=== PATIENT | female | born 1955 | race Caucasian/White ===

== ENCOUNTER 2017-04-07 07:47 | Outpatient (CLI) | payer MEDICARE | END 2017-04-07 07:48 | disposition critical access hospital (66) | LOC: EMS 07:47 | PROVIDERS: ATTEND Surgery | DX: R06.02 Shortness of breath (principal); R05 Cough | CPT/HCPCS: A0425; A0427 ==

== ENCOUNTER 2017-04-07 08:06 | Inpatient (IN) | payer MEDICARE ==
--- NOTE | 2017-04-07 08:28 | ED Physician Documentation ---
PD HPI DYSPNEA - Stated complaint Stated Complaint: SOA - Chief complaint Chief Complaint: Resp - History obtained from History obtained from: Patient, EMS - History of Present Illness Timing - onset: How many days ago (6) Timing - onset during: Rest Timing - duration: Days (6) Timing - details: Gradual onset, Still present Inciting event(s): URI Improved by: Inhaler/neb Worsened by: Exertion, Coughing Associated symptoms: Fever, Cough, Wheezing Similar symptoms before: Diagnosis (bronchitis) Recently seen: Clinic - Additional information Additional information: 61-year-old diabetic female with coronary artery disease has developed a cough and fever with shortness of breath. She was diagnosed with bronchitis 4 days ago and placed on azithromycin and prednisone. Despite starting these medicines she has had progression of her shortness of breath and now has called the ambulance unable to get of breath after using her albuterol inhaler.In route to the hospital she was administered DuoNeb and an albuterol treatment she is somewhat improved with her breathing, but continues to have wheezing. Review of Systems Constitutional: reports: Fever, Chills, Myalgias, Fatigue Eyes: denies: Decreased vision Ears: denies: Ear pain Nose: reports: Rhinorrhea / runny nose, Congestion Throat: denies: Sore throat Cardiac: denies: Chest pain / pressure, Palpitations Respiratory: reports: Dyspnea, Cough, Wheezing GI: denies: Abdominal Pain, Nausea, Vomiting : denies: Dysuria, Frequency Skin: denies: Rash Musculoskeletal: denies: Neck pain, Back pain, Extremity pain PD PAST MEDICAL HISTORY - Past Medical History Cardiovascular: Hypertension, High cholesterol, Coronary artery disease, Peripheral Vascular Disease, [place] Respiratory: Shortness of breath Neuro: CVA, Peripheral neuropathy Endocrine/Autoimmune: Type 2 diabetes Musculoskeletal: Osteopenia - Past Surgical History Past Surgical History: Yes Cardiovascular: CABG, Coronary stent, Vascular surgery, Angioplasty - Present Medications Home Medications: Ambulatory Orders Medication Instructions Recorded Confirmed Aspirin [Aspir 81] 81 mg PO DAILY 06/12/14 04/07/17 Carvedilol 25 mg PO BID 06/12/14 04/07/17 Prasugrel HCl [Effient] 10 mg PO DAILY 06/12/14 04/07/17 Amlodipine Besylate 10 mg PO QPM 11/10/15 04/07/17 Atorvastatin Calcium 40 mg PO DAILY 11/10/15 04/07/17 Cilostazol 100 mg PO QPM 11/10/15 04/07/17 Diazepam 10 mg PO DAILY PRN 11/10/15 04/07/17 Mirtazapine 15 mg PO QPM 11/10/15 04/07/17 Insulin Lispro [Humalog] 40 units SQ BID 04/07/17 04/07/17 Insulin Regular, Human [Humulin R] 20 units SQ TID 04/07/17 04/07/17 Isosorbide Dinitrate 30 mg PO DAILY 04/07/17 04/07/17 Prednisone 40 mg PO DAILY 04/07/17 04/07/17 - Allergies Allergies/Adverse Reactions: Allergies Allergy/AdvReac Type Severity Reaction Status Date / Time clopidogrel bisulfate * Allergy Severe Hives Verified 04/07/17 08:12 [From Plavix] Penicillins Allergy Intermediate Hives Verified 04/07/17 08:12 sertraline HCl * Allergy Intermediate throat Verified 04/07/17 08:12 [From Zoloft] swelling Heparin Analogues AdvReac Intermediate platelets Verified 04/07/17 08:12 metformin AdvReac Intermediate diarrhea Verified 04/07/17 08:12 gabapentin AdvReac explosive Verified 04/07/17 08:12 diarrhea tapes Allergy Intermediate blisters Uncoded 04/07/17 08:12 - Social History Does the pt smoke?: No Smoking Status: Former smoker Does the pt drink ETOH?: No Does the pt have substance abuse?: No - Immunizations Immunizations are current?: Yes - POLST Patient has POLST: No PD ED PE NORMAL - Vitals Vital signs reviewed: Yes (hypertensive with wide pulse pressure) - General General: Well developed/nourished - HEENT HEENT: Atraumatic, PERRL, EOMI, Other (The lft TM is inflamed and the right is clear. mucous membranes are dry. ) - Neck Neck: Supple, no meningeal sign - Cardiac Cardiac: RRR, No murmur - Respiratory Respiratory: Other (tachypnea with audible wheeze and wheezes and rhonchi throughout the chest. ) - Abdomen Abdomen: Soft, Non tender - Back Back: No CVA TTP, No spinal TTP - Derm Derm: Normal color, Warm and dry, No rash - Extremities Extremities: No deformity, No edema - Neuro Neuro: No motor deficit, No sensory deficit - Psych Psych: Normal mood, Normal affect Results - Vitals Vitals: Vital Signs - 24 hr 04/07/17 04/07/17 04/07/17 08:06 08:33 09:25 Temperature 36.6 C Heart Rate 81 73 77 Respiratory 24 17 20 Rate Blood Pressure 160/50 H 142/58 H 164/59 H O2 Saturation 94 94 93 04/07/17 04/07/17 04/07/17 10:14 10:23 11:46 Temperature Heart Rate 69 68 69 Respiratory 16 17 15 Rate Blood Pressure 155/62 H 160/58 H O2 Saturation 96 96 04/07/17 12:17 Temperature Heart Rate 13 L Respiratory 18 Rate Blood Pressure 138/58 H O2 Saturation 97 Oxygen O2 Source Room air - EKG (time done) 0916 Rate: Rate (enter#) (76) [place]: RAD QRS: Poor R wave progression Ischemia: Normal ST segments, Non specific changes Compare to prior EKG: Unchanged from prior EKG (1.29.16) Computer interpretation: Agree with computer - Labs Labs: Laboratory Tests 04/07/17 04/07/17 04/07/17 08:32 08:32 08:32 WBC 8.7 RBC 4.05 L Hgb 12.3 Hct 35.5 L MCV 87.6 MCH 30.3 MCHC 34.5 RDW 15.8 H Plt Count 171 MPV 6.5 L Neut # 7.0 H Lymph # 1.2 L [place] # 0.4 Eos # 0.0 Baso # 0.1 Absolute Nucleated RBC 0.00 Nucleated RBCs 0.0 D-Dimer Sodium 140 Potassium 3.9 Chloride 105 Carbon Dioxide 28 Anion Gap 7.0 BUN 20 Creatinine 0.9 Estimated GFR (MDRD) 63 L Glucose 186 H Calcium 9.0 Total Bilirubin 0.5 AST 27 ALT 29 Alkaline Phosphatase 72 Troponin I 0.17 Total Protein 7.3 Albumin 3.5 Globulin 3.8 Albumin/Globulin Ratio 0.9 L Lipase 24 04/07/17 04/07/17 08:32 10:10 WBC RBC Hgb Hct MCV MCH MCHC RDW Plt Count MPV Neut # Lymph # [place] # Eos # Baso # Absolute Nucleated RBC Nucleated RBCs D-Dimer < 200.0 L Sodium Potassium Chloride Carbon Dioxide Anion Gap BUN Creatinine Estimated GFR (MDRD) Glucose Calcium Total Bilirubin AST ALT Alkaline Phosphatase Troponin I 0.17 Total Protein Albumin Globulin Albumin/Globulin Ratio Lipase Procedures - IVC sono (time) 0820 Bedside IVC sono: IVC measures (cm) (1.87), IVC collapsed c insp (cm) (1.24), Euvolemia PD MEDICAL DECISION MAKING - ED course Complexity details: reviewed old records, reviewed results, re-evaluated patient , considered differential, d/w patient ED course: 61-year-old female with history of diabetes and coronary artery disease has developed bronchitis that is not responding to outpatient management with prednisone and Zithromax. She continues to cough and has extreme shortness of breath this morning to wear she required 2 treatments in route to the hospital and a third treatment here. She still feels weak hurry her volume status is euvolemic and her d-dimer is negative troponins were in the indeterminate range repeated and and stable.I talked to Dr. Ariana Batista our hospitalist here today and he has graciously agreed to put the patient into the hospital for further treatment. Departure - Departure Disposition: 64 [facility] DC/Xfer Clinical Impression: Moderate COPD (chronic obstructive pulmonary disease) Pneumonia Qualifiers: Pneumonia type: due to unspecified organism Laterality: right Lung location: lower lobe of lung Qualified Code(s): J18.1 - Lobar pneumonia, unspecified organism Condition: Stable
[2017-04-07 08:40] LABS: BASOPHILS # (AUTO) 0.1 10^3/uL (0.0-0.1); BASOPHILS % (AUTO) 0.6 %; EOSINOPHILS % (AUTO) 0.2 %; HCT - HEMATOCRIT 35.5 % (37.0-47.0); HGB - HEMOGLOBIN 12.3 g/dL (12.0-16.0); LYMPHOCYTES # (AUTO) 1.2 10^3/uL (1.5-3.5); LYMPHOCYTES % (AUTO) 13.4 %; MEAN CORPUSCULAR HEMOGLOBIN 30.3 pg (27.0-31.0); MEAN CORPUSCULAR HGB CONC 34.5 g/dL (32.0-36.0); MEAN CORPUSCULAR VOLUME 87.6 fL (81.0-99.0); MEAN PLATELET VOLUME 6.5 fL (7.9-10.8); MONOCYTES # (AUTO) 0.4 10^3/uL (0.0-1.0); MONOCYTES % (AUTO) 5.2 %; NEUTROPHILS % (AUTO) 80.6 %; RED BLOOD COUNT 4.05 10^6/uL (4.20-5.40); RED CELL DISTRIBUTION WIDTH 15.8 % (12.0-15.0); UNCORRECTED WHITE BLOOD COUNT 8.7 x10^3/uL; WHITE BLOOD COUNT 8.7 x10^3/uL (4.8-10.8)
[2017-04-07 08:53] LABS: ALBUMIN/GLOBULIN RATIO 0.9 (1.0-2.2); BILIRUBIN,TOTAL 0.5 mg/dL (0.2-1.0); CREATININE 0.9 mg/dL (0.4-1.0); POTASSIUM 3.9 mmol/L (3.5-5.0); TOTAL PROTEIN 7.3 g/dL (6.7-8.2)
--- NOTE | 2017-04-07 09:35 | XRAY Preliminary Report ---
Exam: XR Chest 2 View PA/LAT IMPRESSION: 1. Increased interstitial markings with Bronchial cuffing and nonspecific but can be seen in the setting of reactive airways disease, bronchi tis and viral infection. 2. Subtle nodular densities seen in the lateral aspect of the right lower lobe are nonspecific but ca n be seen in the setting of early infectious process. [facility] SITE ID: [id number]
--- NOTE | 2017-04-07 09:38 | XRAY Report ---
EXAM: CHEST RADIOGRAPHY EXAM DATE: 04/07/2017 08:56 AM. CLINICAL HISTORY: Rhonchi wheezing and fever. COMPARISON: Chest radiograph dated 04/04/2017. TECHNIQUE: 2 views. FINDINGS: Lungs/Pleura: D increased interstitial markings or peribronchial cuffing are redemonstrated and simil ar to the prior examination. Subtle nodular densities are noted in the right lung base laterally whic h are new from the prior examination. Mediastinum: Heart and mediastinal contours are unremarkable. Other: None. IMPRESSION: 1. Increased interstitial markings with Bronchial cuffing and nonspecific but can be seen in the setting of reactive airways disease, bronchi tis and viral infection. 2. Subtle nodular densities seen in the lateral aspect of the right lower lobe are nonspecific but ca n be seen in the setting of early infectious process. [facility] Referring Provider Line: [phone] SITE ID: [id number]
[2017-04-07] MEDS ORDERED: IPRATROPIUM/ALBUTEROL 3 ML NEB INH STA (10:04)
[2017-04-07] MEDS ORDERED: cefTRIAXone 1 GM in SODIUM CHLORIDE 0.9% MINIBAG 100 ML IV STA (10:50)
[2017-04-07] MEDS ORDERED: cefTRIAXone 1 GM VIAL ONE (10:55)
[2017-04-07] MEDS ORDERED: ACETAMINOPHEN 325 MG TABLET PO PRN (12:43)
[2017-04-07] MEDS ORDERED: ONDANSETRON ODT 4 MG TABLET TL PRN (12:43)
[2017-04-07] MEDS ORDERED: SODIUM CHLORIDE FLUSH 0.9% 10 ML SYRINGE IVP PRN (12:43)
[2017-04-07 13:48] LABS: MAGNESIUM 1.9 mg/dL (1.7-2.8); PHOSPHORUS 2.7 mg/dL (2.5-4.6)
[2017-04-07 13:49] LABS: HEMOGLOBIN A1C 0.6 g/dL
[2017-04-07] MEDS ORDERED: diphenhydrAMINE INJ 50 MG/ML VIAL IVP PRN (13:53)
[2017-04-07] MEDS: CARVEDILOL 12.5 MG TABLET PO SCH ×2 (14:36→21:05)
[2017-04-07] MEDS: ASPIRIN EC 81 MG TABLET PO SCH (14:37)
[2017-04-07] MEDS: methylPREDNISolone SUCCINATE 40 MG/ML VIAL IVP SCH (14:59)
[2017-04-07] MEDS: SODIUM CHLORIDE FLUSH 0.9% 10 ML SYRINGE IVP SCH ×2 (14:59→22:27)
[2017-04-07] MEDS: FAMOTIDINE 20 MG/50 ML 50 ML IV SCH ×2 (14:59→21:06)
[2017-04-07] MEDS: IPRATROPIUM/ALBUTEROL 3 ML NEB INH SCH ×2 (15:25→18:59)
[2017-04-07] MEDS: guaiFENesin/DEXTROMETHORPHAN 10 ML UDC PO PRN ×2 (16:30→22:06)
[2017-04-07] MEDS: INSULIN ASPART 300 UNIT/3 ML PEN SUBQ SCH ×3 (17:03→21:17)
--- NOTE | 2017-04-07 18:31 | HISTORY & PHYSICAL EXAMINATION ---
DATE OF ADMISSION: 04/07/2017 CHIEF COMPLAINT: Wheezing, shortness of breath. MAIN PROVIDER: Abigail Olivas N.P. HISTORY OF PRESENTING ILLNESS: The patient is a pleasant 61-year-old obese diabetic female who prese nted to the ER today with a complaint of six days of wheezing and shortness of breath. The patient s tates that she has been on azithromycin and prednisone with no relief. She has a significant medical history for coronary artery disease, obesity, hypertension, high cholesterol, peripheral neuropathy, type 2 diabetes, osteopenia, PVD, and a history of myocardial infarction. Over the course of six da ys, she has been using the azithromycin and prednisone, but continued to have a runny nose, congestio n, sore throat, productive cough, and shortness of breath with wheezing. Despite taking all the medi cations, she has continued to progress, and the shortness of breath has worsened. It is now severe. She called the ambulance today because she was unable to get her breath after using her albuterol in [facility]. While in the ER, she did receive Duoneb treatment, which she stated did help improve her merissa thing. She denies nausea, vomiting, diarrhea, constipation, dysuria, hematuria, and numbness or ting ling to the extremities. She states she has been compliant in all her home medications for her COPD history. She has not been around anybody who has been sick in the home. She states that for 40 year s she has been a smoker and she rolls her own cigarettes and uses organic tobacco. Approximately two weeks ago, she decided to buy a carton of cigarettes instead, and this is when her symptoms started to develop. She has lessened, and then other times she has smoked cigarettes throughout the day. Sh joe thinks that her lungs are just responding to the recent use of carton cigarettes versus organic tob acco products. The patient continued to have shortness of breath while in the ER. She was admitted to be closely mo nitored with respiratory therapy treatments and IV steroids. ALLERGIES 1. PLAVIX. 2. PENICILLIN. 3. ZOLOFT. 4. HEPARIN. 5. METFORMIN. 6. GABAPENTIN. 7. TAPE. HOME MEDICATIONS 1. Aspirin. 2. Carvedilol. 3. Effient. 4. Amlodipine besylate. 5. Atorvastatin calcium. 6. Cilostazol. 7. Diazepam. 8. Mirtazepine. 9. Insulin (Humalog). 10. Insulin (regular). 11. Isosorbide dinitrate. 12. Prednisone. PAST MEDICAL HISTORY: Includes osteopenia, type 2 diabetes (insulin controlled), past CVA, periphera l neuropathy, hypertensive heart disease, hyperlipidemia, coronary artery disease, past myocardial in farction. PAST SURGICAL HISTORY: CABG, coronary stent placement, vascular surgery, angioplasty, right ankle fr acture repair. PAST FAMILY HISTORY: The patient states that both of her parents had hypertension. Mother had signi ficant cardiac disease and heart failure. Father from Parkinson disease. She had an uncle who from diabetes and one from alcoholism. Then, a son also had a myocardial infarction at the age of 40. SOCIAL HISTORY: The patient has smoked heavily for 40 years with organic tobacco. She rolls her own cigarettes. 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 REVIEW OF SYSTEMS: Ten systems have been reviewed and are negative, with the exception as discussed in the HPI prior. She is negative for fever and chills. No general malaise. No weight changes or c hanges in appetite. No visual disturbances. No abdominal pain. No dysuria, urinary frequency, or u rgency. She is positive for shortness of breath, chest discomfort with cough, and weakness. PHYSICAL EXAMINATION CONSTITUTIONAL: The patient is alert and in no acute distress. EYES: Pupils are equal, round, and reactive to light and accommodation. No scleral icterus or conju nctivitis. ENT: Nares are patent. Dentition in fair condition. Oral mucosa is moist. Mild nasal drainage. NECK: Supple. No thyromegaly. No JVD. No lymphadenopathy. RESPIRATORY: Breath sounds are with generalized wheezing to auscultation and percussion. No retract ions, nasal flaring, or increased work of breathing. CARDIOVASCULAR: S1 and S2, with a 2/6 systolic murmur heard loudest at the left sternal border. No rubs or gallops. Normal PMI. GASTROINTESTINAL: Abdomen is obese, soft, and nondistended. Nontender to palpation. Normoactive urvashi wel sounds. MUSCULOSKELETAL: No cyanosis. Pulses are palpable. She is able to ambulate without assistance. Mi ld pedal edema of the bilateral lower extremities. NEUROLOGIC: She is alert. Cranial nerves II through XII are grossly intact. No focal deficits. No facial droop. Sensory is intact. SKIN: Warm, dry, and intact. No cellulitis, lesions, or rash. HEMATOLOGIC: No active bleeding. The patient is hemodynamically stable. LYMPHATIC: No cervical, axillary, or supraclavicular lymphadenopathy is noted. GENITOURINARY: No CVA tenderness. No masses palpated. No bladder distention. VITAL SIGNS: Temperature is 36.6. Heart rate is 74. Blood pressure is 143/68. Respirations are 20 . Oxygen saturation is 94% on room air. LABORATORY AND DIAGNOSTIC DATA: I personally reviewed the laboratory and diagnostic data in the [facility] records. The results were as follows, with glucose 186. Hemoglobin A1c was 6.3. Calcium 9. Ma gnesium 1.9. Phosphorus 2.7. TSH 1.11. Sodium 140, potassium 3.9, chloride 105, anion gap 7, BUN 2 0, creatinine 0.9. WBCs 8.7, and hemoglobin 12.3. Diagnostic information includes a chest x-ray impression of increased interstitial markings with bron chial cuffing, nonspecific, with reactive airway disease, possible bronchitis or viral infection. Th ere were several nodular densities seen in the lateral aspect of the right lower lobe, which were non specific. IMPRESSION AND PLAN 1. Acute shortness of breath with chronic obstructive pulmonary disease secondary to chronic tobacco usage, uncomplicated. 2. Insulin-dependent type 2 diabetes with peripheral neuropathy. 3. Atherosclerotic heart disease and [place] coronary artery disease, with coronary artery bypass. 4. Morbid obesity with a body mass index greater than 42. 5. Hyperlipidemia with atherosclerotic heart disease. 6. Chronic osteopenia. 7. Nicotine dependence, cigarettes, uncomplicated. PLAN 1. The patient was admitted as an inpatient. 2. Respiratory therapy support with supplemental oxygen and Duoneb treatments every 4 hours or as nee ded for wheezing and shortness of breath. Continue with Solu-Medrol IV 40 mg every 8 hours. We will hold home dosage of prednisone. Continue with supplemental oxygen at 2 liters as needed. 3. Continue on aspirin, carvedilol, and amlodipine for hypertensive heart disease. 4. Continue on 40 units of insulin (Humalog) subcutaneous b.i.d. and sliding scale insulin for type 2 diabetes management. Accu-Cheks a.c. and bedtime, and diabetic three-carbohydrate diet. 5. We will check vitamin D level for osteopenia, and vitamin D supplementation daily. 6. We will get a lipid profile since the patient has hyperlipidemia and continue on aspirin. Continu e with atorvastatin. 7. Since the patient does have mild depression, continue on diazepam p.r.n. at home dosage. 8. Robitussin DM for cough and Benadryl for congestion and histamine response. 9. DVT prophylaxis with foot pumps and sequential compression devices, and encouragement with ambulat ion. THE PATIENT DOES HAVE SEVERE REACTION TO HEPARIN OR ANTICOAGULATION THERAPY. 10. Physical and Occupational Therapy to assist with the patient for ambulation. STATUS: The patient requests to be a FULL CODE STATUS. TIME SPENT: The time spent with the patient was 45 minutes for education, planning, and assessment. RISK ASSESSMENT/DISPOSITION: The patient is high risk for worsening comorbid conditions. She will r equire IV medication with high risk for toxicity, additional diagnostics, respiratory therapy, and PT consultation. ANTICIPATED LENGTH OF STAY: Two midnights. 17:9:00 JOB #: [id number] EXT JOB #:[id number]
[2017-04-07] MEDS ORDERED: amLODIPine 5 MG TABLET PO SCH (21:00)
[2017-04-07] MEDS ORDERED: CILOSTAZOL 100 MG TABLET PO SCH (21:00)
[2017-04-07] MEDS: INSULIN NPH HUMAN 100 UNIT/1 ML 10 ML MDV SUBQ SCH (21:04)
[2017-04-07] MEDS: OMEGA-3 ACID ETHYL ESTERS 1 GM CAPSULE PO SCH (21:05)
[2017-04-07] MEDS ORDERED: MIRTAZAPINE 15 MG TABLET PO SCH (22:03)
[2017-04-08] MEDS: guaiFENesin/DEXTROMETHORPHAN 10 ML UDC PO PRN ×2 (03:28→10:21)
[2017-04-08] MEDS: IPRATROPIUM/ALBUTEROL 3 ML NEB INH SCH ×3 (05:49→15:24)
[2017-04-08] MEDS: SODIUM CHLORIDE FLUSH 0.9% 10 ML SYRINGE IVP SCH ×2 (06:01→15:02)
[2017-04-08 06:30] LABS: BASOPHILS % (AUTO) 0.3 %; HCT - HEMATOCRIT 38.5 % (37.0-47.0); LYMPHOCYTES # (AUTO) 1.8 10^3/uL (1.5-3.5); LYMPHOCYTES % (AUTO) 18.9 %; MEAN CORPUSCULAR HEMOGLOBIN 29.7 pg (27.0-31.0); MEAN CORPUSCULAR HGB CONC 33.8 g/dL (32.0-36.0); MEAN PLATELET VOLUME 6.6 fL (7.9-10.8); MONOCYTES # (AUTO) 0.9 10^3/uL (0.0-1.0); MONOCYTES % (AUTO) 9.2 %; NEUTROPHILS # (AUTO) 6.7 10^3/uL (1.5-6.6); NEUTROPHILS % (AUTO) 71.6 %; NUCLEATED RED BLOOD CELLS AUTO 0.1 /100WBC; RED BLOOD COUNT 4.37 10^6/uL (4.20-5.40); RED CELL DISTRIBUTION WIDTH 15.7 % (12.0-15.0); UNCORRECTED WHITE BLOOD COUNT 9.4 x10^3/uL; WHITE BLOOD COUNT 9.4 x10^3/uL (4.8-10.8)
[2017-04-08 06:46] LABS: ALBUMIN/GLOBULIN RATIO 1.1 (1.0-2.2); BILIRUBIN,TOTAL 0.3 mg/dL (0.2-1.0); BUN - BLOOD UREA NITROGEN 24 mg/dL (6-20); CALCIUM 9.1 mg/dL (8.5-10.3); CARBON DIOXIDE - CO2 29 mmol/L (21-32); CHLORIDE 104 mmol/L (101-111); CHOL/HDL RATIO 3.3 (<4.4); CHOLESTEROL 182 mg/dL; GFR - MDRD 56 (>89); GLUCOSE 169 mg/dL (70-100); HDL CHOLESTEROL 55 mg/dL; LDL/HDL RATIO 1.5 (<4.4); POTASSIUM 3.9 mmol/L (3.5-5.0); SODIUM 140 mmol/L (135-145); TOTAL PROTEIN 7.2 g/dL (6.7-8.2); TRIGLYCERIDES 226 mg/dL; VLDL CHOLESTEROL 45 mg/dL
[2017-04-08] MEDS: INSULIN ASPART 300 UNIT/3 ML PEN SUBQ SCH ×4 (08:27→17:13)
[2017-04-08] MEDS: INSULIN NPH HUMAN 100 UNIT/1 ML 10 ML MDV SUBQ SCH (08:27)
[2017-04-08] MEDS ORDERED: POLYETHYLENE GLYCOL 3350 17 GM PACKET PO SCH (09:00)
[2017-04-08] MEDS ORDERED: ISOSORBIDE MONONITRATE ER 30 MG TABLET PO SCH (09:00)
[2017-04-08] MEDS ORDERED: MAGNESIUM SULFATE 2 GRAM 50 ML IV ONE (09:15)
[2017-04-08] MEDS: methylPREDNISolone SUCCINATE 40 MG/ML VIAL IVP SCH (09:56)
[2017-04-08] MEDS: FAMOTIDINE 20 MG/50 ML 50 ML IV SCH (10:00)
[2017-04-08] MEDS: CARVEDILOL 12.5 MG TABLET PO SCH (10:22)
[2017-04-08] MEDS: ASPIRIN EC 81 MG TABLET PO SCH (10:22)
[2017-04-08] MEDS: OMEGA-3 ACID ETHYL ESTERS 1 GM CAPSULE PO SCH (10:23)
[2017-04-08] MEDS ORDERED: guaiFENesin 600 MG TABLET PO SCH (12:00)
--- NOTE | 2017-04-08 12:07 | Discharge Plan ---
Discharge Plan Disposition: Home, Self Care Condition: Good Prescriptions: guaiFENesin/DEXTROMETHORPHAN [Robitussin Dm] 10 ml PO Q6HR PRN #1 bottle PRN Reason: Cough Albuterol 2.5 mg INH Q4H PRN #30 neb PRN Reason: Wheezing [place]-3 Acid Ethyl Esters [Lovaza] 1 gm PO BID #60 capsule guaiFENesin [Mucinex] 600 mg PO DAILY #10 tablet Benzonatate [Tessalon] 100 mg PO TID PRN #30 capsule PRN Reason: Cough Diet: Diabetic Activity Restrictions: Activity as Tolerated Shower Restrictions: No Driving Restrictions: No Assistance Devices: Walker, Cane Weight Bearing: Full Weight Instruction Topics: Bronchitis Chronic Additional Instructions or Follow Up instructions: Please continue on all your home medications as prescribed. You need to use your inhaler as needed. You need to stop smoking. Please eat a diabetic heart healthy diet and avoid soda and caffeine. Please monitor your blood glucose with each meal. You need to drink plenty of water throughout the day. avoid sodas and limit caffeine products You should be getting at least 8 hours of sleep a night and if you snore you may need a sleep study to determine if you have sleep apnea You need to go to the nearest ER or call 911 if you have worsening shortness of breath or chest pain. Please see your primary care provider within 1 week of discharge. No Smoking: If you smoke, Please STOP! Call for help. Follow-up with: Cheyenne Guan MD [Primary Care Provider] -
[2017-04-08] MEDS ORDERED: IPRATROPIUM/ALBUTEROL 3 ML NEB INH ONE (13:00)
[2017-04-08] MEDS ORDERED: BENZONATATE 100 MG CAPSULE PO PRN (14:46)
--- NOTE | 2017-04-08 16:51 | DISCHARGE SUMMARY ---
"Discharge Summary Admit Date: 04/07/17 Discharge Date: 04/08/17 (Discharge for COPD exacerbation) Discharging Provider: Abigail Olivas APRN Primary Care Provider: Selina Danielson MD Condition at Discharge: Good Discharge Disposition: 01 Home, Self Care - DIAGNOSES Admission Diagnoses: 1. ACute dyspnea with COPD with exacerbation 2. Nicotine dependence, cigarettes, uncomplicated 3. Insulin dependent diabetes mellitus with peripheral neuropathy 4. Morbid obesity with BMI>40 excessive caloric intake 5. Mixed hyperlipidemia Discharge Diagnoses with Status of Each Condition: 1. Acute dyspnea with COPD with exacerbation 2. Upper respiratory viral infection 2. Nicotine dependence, cigarettes, uncomplicated 3. Insulin dependent diabetes mellitus with peripheral neuropathy 4. Morbid obesity with BMI>40 excessive caloric intake 5. Mixed hyperlipidemia - HPI History of Present Illness: 61-year-old diabetic female with coronary artery disease who developed a cough and fever with shortness of breath. She was diagnosed with bronchitis 4 days ago and placed on azithromycin and prednisone. Despite starting these medicines she has had progression of her shortness of breath and now has called the ambulance unable to get of breath after using her albuterol inhaler.In route to the hospital she was administered DuoNeb and an albuterol treatment she is somewhat improved with her breathing, but continues to have wheezing. - CONSULTS | PROCEDURES Consultations: respiratory therapy, PT and OT Procedures: chest xray- impression shows increased bronchial cuffings with restrictive airway disea EKG- sinus rhythm with no ischemia - HOSPITAL COURSE Hospital Course: Patient is a 61 year old obese female who presented to the ER with complaint of shortness of breath and COPD exacerbation. After being on antibiotics and steroids for 4 days prior to admission, patient came to the ER. She was not getting better and subsequently was admitted for possible bronchitis versus new infectious airway process. Patient received Azithromycin and Rocephin in the ER. She had been on a Zpack with no relief. She was given mucinex, robitussin and tessalon perles for cough and congestion. She was given breathing treatments per RT and continued on IV steroids and tapered back to oral prednisone at discharge. She continued to receive educational materials regarding smoking cessation. She remained on her COPD medications from home. She was counseled on diabetic management by nursing and given a diabetic low calorie diet and sliding scale insulin. Accuchecks were performed ACHS. On da of discharge, patient had a walking desat study and she remained greater than 92 % on room air with exertion. She is stable to be discharged home with family. She was given prescriptions for cough and inhaler. She understands she is to return to the ER if symptoms reoccur or worsen. She is to take medications as prescribed and understood these instructions verbally to staff. - ALLERGIES Allergies/Adverse Reactions: Allergies Allergy/AdvReac Type Severity Reaction Status Date / Time clopidogrel bisulfate * Allergy Severe Hives Verified 04/07/17 08:12 [From Plavix] Penicillins Allergy Intermediate Hives Verified 04/07/17 08:12 sertraline HCl * Allergy Intermediate throat Verified 04/07/17 08:12 [From Zoloft] swelling Heparin Analogues AdvReac Intermediate platelets Verified 04/07/17 08:12 metformin AdvReac Intermediate diarrhea Verified 04/07/17 08:12 gabapentin AdvReac explosive Verified 04/07/17 08:12 diarrhea tapes Allergy Intermediate blisters Uncoded 04/07/17 08:12 - MEDICATIONS Home Medications: Ambulatory Orders Medication Instructions Recorded Confirmed Aspirin [Aspir 81] 81 mg PO DAILY 06/12/14 04/07/17 Carvedilol 25 mg PO BID 06/12/14 04/07/17 Prasugrel HCl [Effient] 10 mg PO DAILY 06/12/14 04/07/17 Amlodipine Besylate 10 mg PO QPM 11/10/15 04/07/17 Atorvastatin Calcium 40 mg PO DAILY 11/10/15 04/07/17 Cilostazol 100 mg PO QPM 11/10/15 04/07/17 Mirtazapine 15 mg PO QPM 11/10/15 04/07/17 Insulin Lispro [Humalog] 20 units SQ 0800,1200 04/07/17 04/07/17 Insulin Lispro [Humalog] 30 unit SQ 1700 04/07/17 04/07/17 Insulin NPH Human [NovoLIN N] 45 unit SUBQ BID 04/07/17 04/07/17 Isosorbide Mononitrate ER [Imdur] 30 mg PO DAILY 04/07/17 04/07/17 Prednisone 40 mg PO DAILY 04/07/17 04/07/17 Albuterol 2.5 mg INH Q4H PRN #30 neb 04/08/17 Benzonatate [Tessalon] 100 mg PO TID PRN #30 capsule 04/08/17 [place]-3 Acid Ethyl Esters [Lovaza] 1 gm PO BID #60 capsule 04/08/17 guaiFENesin [Mucinex] 600 mg PO DAILY #10 tablet 04/08/17 guaiFENesin/DEXTROMETHORPHAN 10 ml PO Q6HR PRN #1 bottle 04/08/17 [Robitussin Dm] - PHYSICAL EXAM AT DISCHARGE General Appearance: positive: No acute distress, Alert Eyes Bilateral: positive: PERRL, EOMI ENT: positive: ENT inspection nml, Pharynx nml, No signs of dehydration Neck: positive: Nml inspection, Thyroid nml, No JVD, Trachea midline Respiratory: positive: Chest non-tender, No respiratory distress, Other ( diminished and bronchial) Cardiovascular: positive: Regular rate & rhythm, No murmur, No gallop Peripheral Pulses: positive: 2+ Abdomen: positive: Non-tender, No organomegaly, Nml bowel sounds, No distention. negative: Tenderness, Guarding Back: negative: CVA tenderness (R), CVA tenderness (L) Skin: positive: No rash, Warm, Dry. negative: Decubitus Extremities: positive: Non-tender, Full ROM, Nml appearance. negative: Pedal edema, Calf tenderness Neurologic/Psychiatric: positive: Oriented x3, CN's nml (2-12), Motor nml, Sensation nml, Mood/affect nml. negative: Facial droop - LABS Result Diagrams: 04/08/17 05:54 04/08/17 05:54 Other Lab Results: Abnormal Lab Results 04/07/17 04/07/17 04/07/17 08:32 08:32 08:32 RBC 4.05 10^6/uL L 10^6/uL (4.20-5.40) Hct 35.5 % L % (37.0-47.0) RDW 15.8 % H % (12.0-15.0) MPV 6.5 fL L fL (7.9-10.8) Neut # 7.0 10^3/uL H 10^3/uL (1.5-6.6) Lymph # 1.2 10^3/uL L 10^3/uL (1.5-3.5) D-Dimer < 200.0 ng/mL L ng/mL (200.0-255.0) BUN Estimated GFR (MDRD) 63 L (>89) Glucose 186 mg/dL H mg/dL (70-100) Glycated Hemoglobin Estim Average Glucose Albumin/Globulin Ratio 0.9 L (1.0-2.2) Triglycerides HDL Cholesterol 04/07/17 04/08/17 04/08/17 13:27 05:54 05:54 RBC Hct RDW 15.7 % H % (12.0-15.0) MPV 6.6 fL L fL (7.9-10.8) Neut # 6.7 10^3/uL H 10^3/uL (1.5-6.6) Lymph # D-Dimer BUN 24 mg/dL H mg/dL (6-20) Estimated GFR (MDRD) 56 L (>89) Glucose 169 mg/dL H mg/dL (70-100) Glycated Hemoglobin 6.3 % H % (4.6-6.2) Estim Average Glucose 134 H (70-100) Albumin/Globulin Ratio Triglycerides 226 mg/dL H mg/dL ( - 149) HDL Cholesterol 55 mg/dL L mg/dL (60 - ) - FOLLOW UP Follow Up: Patient to follow up with PCP within 1 week of discharge from hospital for breathing difficulty"
[2017-04-08] MEDS ORDERED: INSULIN ASPART 300 UNIT/3 ML PEN SUBQ SCH (17:00)
[2017-04-08 18:30] VITALS: BP 194/69
[2017-04-08] MEDS ORDERED: MIRTAZAPINE 15 MG TABLET PO SCH (21:00)
== END 2017-04-08 18:00 | disposition home or self-care (01) | DRG 191 ==
LOC: EDUNIT# → ED 08:06 → MS 12:43
PROVIDERS: ADMIT Nurse Practitioner; ATTEND Nurse Practitioner
DX: J44.9 Chronic obstructive pulmonary disease, unspecified (principal); J18.1 Lobar pneumonia, unspecified organism; J44.1 Chronic obstructive pulmonary disease with (acute) exacerbation; Z68.41 Body mass index [BMI] 40.0-44.9, adult; E78.00 Pure hypercholesterolemia, unspecified; J06.9 Acute upper respiratory infection, unspecified; F17.210 Nicotine dependence, cigarettes, uncomplicated; E11.42 Type 2 diabetes mellitus with diabetic polyneuropathy; Z86.73 Personal history of transient ischemic attack (TIA), and cerebral infarction without residual deficits; Z87.891 Personal history of nicotine dependence; E66.01 Morbid (severe) obesity due to excess calories; E78.2 Mixed hyperlipidemia; I11.9 Hypertensive heart disease without heart failure; I25.10 Atherosclerotic heart disease of native coronary artery without angina pectoris; F32.9 Major depressive disorder, single episode, unspecified; I73.9 Peripheral vascular disease, unspecified; M85.80 Other specified disorders of bone density and structure, unspecified site; I25.2 Old myocardial infarction; Z95.1 Presence of aortocoronary bypass graft; Z98.61 Coronary angioplasty status; Z79.4 Long term (current) use of insulin; Z79.51 Long term (current) use of inhaled steroids; Z79.82 Long term (current) use of aspirin; Z79.02 Long term (current) use of antithrombotics/antiplatelets; Z79.52 Long term (current) use of systemic steroids; Z79.2 Long term (current) use of antibiotics; Z79.899 Other long term (current) drug therapy; Z71.3 Dietary counseling and surveillance
CPT/HCPCS: 36415; 71020; 80053; 80061; 82306; 83036; 83690; 83735; 84100; 84443; 84484; 85025; 85379; 93005; 93306; 94640; 96365; 96366; 99284; 99285

== ENCOUNTER 2017-04-17 14:00 | Outpatient (CLI) | payer MEDICARE | END 2017-04-17 14:01 | disposition home or self-care (01) | LOC: LAB.WCP 14:00 | PROVIDERS: ATTEND Family Medicine | DX: N23 Unspecified renal colic (principal); R10.11 Right upper quadrant pain; R10.31 Right lower quadrant pain | CPT/HCPCS: 87086 ==

== ENCOUNTER 2017-10-16 13:50 | Outpatient (CLI) | payer MEDICARE ==
--- NOTE | 2017-10-16 17:07 | Ultrasound Report ---
DATE OF SERVICE: 10/16/2017 RIGHT BREAST ULTRASOUND: 10/16/2017 CLINICAL INDICATION: Palpable nodule right lower inner quadrant. TECHNIQUE: Real-time scanning was performed with access service representative static images obtained. FINDINGS: Ultrasound of the palpable abnormality identified by the patient at the 4 o'clock position, 6 cm from the nipple was performed. At this site, there is a sebaceous cyst, measuring 9 x 6 x 5 mm. No sonographically suspicious findings are identified. IMPRESSION: SEBACEOUS CYST, ACCOUNTING FOR THE PALPABLE ABNORMALITY. RECOMMENDATION: ROUTINE ANNUAL SCREENING UNLESS OTHERWISE CLINICALLY INDICATED. BIRADS CATEGORY 2-BENIGN FINDINGS. TD: 10/16/2017 18:04
--- NOTE | 2017-10-16 17:08 | Ultrasound Report ---
DATE OF SERVICE: 10/16/2017 LEFT BREAST ULTRASOUND: 10/16/2017 CLINICAL INDICATION: Palpable abnormality 8 o'clock left breast on clinical exam. TECHNIQUE: Real-time scanning was performed with access representative static images obtained. FINDINGS: Ultrasound of the 8 o'clock position of the left breast was performed. Unremarkable parenchymal lobules are seen. No discrete solid or cystic lesion is identified. No sonographically suspicious findings are appreciated. IMPRESSION: NEGATIVE EXAMINATION. RECOMMENDATION: ROUTINE ANNUAL SCREENING UNLESS OTHERWISE CLINICALLY INDICATED. BIRADS CATEGORY 1-NEGATIVE. TD: 10/16/2017 18:07
--- NOTE | 2017-10-16 17:20 | Mammography Report ---
DATE OF SERVICE: 10/16/2017 DIGITAL DIAGNOSTIC BILATERAL MAMMOGRAM: 10/16/2017 CLINICAL INDICATION: Palpable abnormality right lower inner quadrant, palpable abnormality on clinical examination left lower inner quadrant. COMPARISON: 12/22/2012, 08/16/2008, 08/04/2008. TECHNIQUE: Bilateral CC, MLO, true lateral views. A marker was placed at the site of palpable abnormality identified by the patient in the right lower inner quadrant. The patient could not identify the palpable abnormality described on the order at the 8 o'clock position of the left breast, so no marker was placed. FINDINGS: The breasts demonstrate heterogeneously dense fibroglandular parenchyma bilaterally. Coarse and punctate, typically benign calcifications are present. No mammographic abnormality is appreciated in the right lower inner quadrant, at the site of the marker, and no mammographic abnormality is appreciated in the left lower inner quadrant, in the region described in the requisition. Please also refer to bilateral breast ultrasounds of the same day. IMPRESSION: BENIGN FINDINGS. RECOMMENDATION: ROUTINE ANNUAL SCREENING UNLESS OTHERWISE CLINICALLY INDICATED. BIRADS CATEGORY 2-BENIGN FINDINGS. STANDARD QUALIFYING STATEMENTS: 1. This examination was reviewed with the aid of Computer-Aided Detection (CAD). 2. A negative or benign imaging report should not delay biopsy if clinically suspicious findings are present. Consider surgical consultation if warranted. More than 5% of cancers are not identified by imaging. 3. Dense breasts may obscure an underlying neoplasm. TD: 10/16/2017 18:19
== END 2017-10-16 13:51 | disposition home or self-care (01) ==
LOC: DI 13:50
PROVIDERS: ATTEND Family Medicine
DX: N60.81 Other benign mammary dysplasias of right breast (principal); N63.24 Unspecified lump in the left breast, lower inner quadrant
CPT/HCPCS: 76642; 77066

== ENCOUNTER 2017-11-12 10:17 | Outpatient (CLI) | payer MEDICARE | END 2017-11-12 10:18 | disposition critical access hospital (66) | LOC: EMS 10:17 | PROVIDERS: ATTEND Surgery | DX: R06.02 Shortness of breath (principal) | CPT/HCPCS: A0425; A0429 ==

== ENCOUNTER 2017-11-12 10:37 | Emergency (ER) | payer MEDICARE ==
[2017-11-12] MEDS ORDERED: IPRATROPIUM/ALBUTEROL 3 ML NEB INH STA (12:23)
[2017-11-12] MEDS ORDERED: DEXAMETHASONE 10 MG/ML VIAL PO STA (12:23)
--- NOTE | 2017-11-12 12:34 | ED Physician Documentation ---
PD HPI URI - Stated complaint Stated Complaint: SOA - Chief complaint Chief Complaint: Resp - History obtained from History obtained from: Patient - History of Present Illness Timing - onset: How many days ago (4) Timing duration: Days (4) Timing details: Gradual onset, Still present Associated symptoms: Fever, Chills, Sweats, Nasal congestion, Rhinorrhea, Sore throat, Productive cough, Dyspnea Contributing factors: Sick contact Improves by: Rest, Medication, MDI/nebulizer Worsened by: Activity Similar symptoms before: Diagnosis (copd) Recently seen: Not recently seen Review of Systems Constitutional: reports: Fever Eyes: denies: Decreased vision Ears: denies: Ear pain Nose: reports: Rhinorrhea / runny nose, Congestion Throat: reports: Sore throat Cardiac: denies: Chest pain / pressure, Palpitations Respiratory: reports: Dyspnea, Cough, Wheezing GI: denies: Abdominal Pain, Nausea, Vomiting : denies: Dysuria, Frequency PD PAST MEDICAL HISTORY - Past Medical History Cardiovascular: Hypertension, High cholesterol, Coronary artery disease, Peripheral Vascular Disease, [place] Respiratory: Shortness of breath Neuro: CVA, Peripheral neuropathy Endocrine/Autoimmune: Type 2 diabetes : Incontinence HEENT: None Psych: None Musculoskeletal: None, Osteopenia Derm: None - Past Surgical History Past Surgical History: Yes Cardiovascular: CABG, Coronary stent, Vascular surgery, Angioplasty - Present Medications Home Medications: Ambulatory Orders Medication Instructions Recorded Confirmed Aspirin [Aspir 81] 81 mg PO DAILY 06/12/14 04/07/17 Carvedilol 25 mg PO BID 06/12/14 04/07/17 Prasugrel HCl [Effient] 10 mg PO DAILY 06/12/14 04/07/17 Amlodipine Besylate 10 mg PO QPM 11/10/15 04/07/17 Atorvastatin Calcium 40 mg PO DAILY 11/10/15 04/07/17 Cilostazol 100 mg PO QPM 11/10/15 04/07/17 Mirtazapine 15 mg PO QPM 11/10/15 04/07/17 Insulin Lispro [Humalog] 20 units SQ 0800,1200 04/07/17 04/07/17 Insulin Lispro [Humalog] 30 unit SQ 1700 04/07/17 04/07/17 Insulin NPH Human [NovoLIN N] 45 unit SUBQ BID 04/07/17 04/07/17 Isosorbide Mononitrate ER [Imdur] 30 mg PO DAILY 04/07/17 04/07/17 predniSONE [Prednisone] 40 mg PO DAILY 04/07/17 04/07/17 Albuterol 2.5 mg INH Q4H PRN #30 neb 04/08/17 Benzonatate [Tessalon] 100 mg PO TID PRN #30 capsule 04/08/17 [place]-3 Acid Ethyl Esters [Lovaza] 1 gm PO BID #60 capsule 04/08/17 guaiFENesin [Mucinex] 600 mg PO DAILY #10 tablet 04/08/17 guaiFENesin/DEXTROMETHORPHAN 10 ml PO Q6HR PRN #1 bottle 04/08/17 [Robitussin Dm] Albuterol 2.5 mg INH Q4H PRN #30 neb 11/12/17 Cefuroxime Axetil [Cefuroxime] 500 mg PO BID #20 tablet 11/12/17 predniSONE [Deltasone] 10 mg PO DAILY #26 tablet 11/12/17 - Allergies Allergies/Adverse Reactions: Allergies Allergy/AdvReac Type Severity Reaction Status Date / Time clopidogrel bisulfate * Allergy Severe Hives Verified 11/12/17 10:46 [From Plavix] Penicillins Allergy Intermediate Hives Verified 11/12/17 10:46 sertraline HCl * Allergy Intermediate throat Verified 11/12/17 10:46 [From Zoloft] swelling Heparin Analogues AdvReac Intermediate platelets Verified 11/12/17 10:46 metformin AdvReac Intermediate diarrhea Verified 11/12/17 10:46 gabapentin AdvReac explosive Verified 11/12/17 10:46 diarrhea tapes Allergy Intermediate blisters Uncoded 11/12/17 10:46 - Social History Does the pt smoke?: No Smoking Status: Never smoker Does the pt drink ETOH?: No Does the pt have substance abuse?: No - Immunizations Immunizations are current?: Yes - POLST Patient has POLST: No PD ED PE NORMAL - Vitals Vital signs reviewed: Yes - General General: Alert and oriented X 3, No acute distress, Well developed/nourished - HEENT HEENT: Atraumatic, PERRL, EOMI, Other (both TM's are erythemtaous centrally with rounding of the umbo. The uvual is swollen. ) - Neck Neck: Supple, no meningeal sign, No bony TTP - Cardiac Cardiac: RRR, Other (2 out of 6 holosystolic systolic murmur at left sternal border) - Respiratory Respiratory: Other (Tachypnea at rest with diminished breath sounds and bibasilar rhonchi) - Abdomen Abdomen: Soft, Non tender - Back Back: No CVA TTP, No spinal TTP - Derm Derm: Normal color, Warm and dry, No rash - Extremities Extremities: No deformity, Other (Trace edema bilaterally) - Neuro Neuro: Alert and oriented X 3, sales specialist 2-12 intact, No motor deficit, No sensory deficit, Normal speech Eye Opening: Spontaneous Motor: Obeys Commands Verbal: Oriented GCS Score: 15 - Psych Psych: Normal mood, Normal affect Results - Vitals Vitals: Vital Signs - 24 hr 11/12/17 11/12/17 11/12/17 10:40 11:28 12:40 Temperature Heart Rate 67 63 62 Respiratory 24 18 16 Rate Blood Pressure 146/60 H 143/61 H O2 Saturation 87 L 94 11/12/17 11/12/17 11/12/17 12:45 14:03 14:04 Temperature 36.0 C L Heart Rate 66 69 Respiratory 18 20 Rate Blood Pressure 166/64 H 159/57 H O2 Saturation 95 94 Oxygen O2 Source Room air - EKG (time done) [address] [place]: RAD Intervals: Prolonged QT Ischemia: Non specific changes Compare to prior EKG: Changed from prior EKG (SPT 7--17 rate has decreased. ) Computer interpretation: Agree with computer - Rads (name of study) 2 veiw chest Radiology: Prelim report reviewed (Impression: Right pleural effusion with underlying atelectasis and/or consolidation. There may also be involvement of the left lower lobe. Follow-up is recommended.), EMP read indepedently, See rad report Procedures - IVC sono (time) 1215 Bedside IVC sono: IVC measures (cm) (1.67), IVC collapsed c insp (cm) (1.09), Euvolemia PD MEDICAL DECISION MAKING - ED course Complexity details: reviewed old records, reviewed results, re-evaluated patient , considered differential, d/w patient ED course: 62-year-old female with a history of COPD and CAD with multiple stents has developed cough congestion and shortness of breath. She has not been able to get her nebulizer help her because she is out of her medications for that. She comes in here today short of breath and is administered a DuoNeb treatment with marked improvement she is given 10 mg of dexamethasone she does have otitis on examination and bilateral lower lobe infiltrates that are mild consistent with pneumonia. She has marked improvement with DuoNeb treatment followed by albuterol and wants to try outpatient treatment for pneumonia. She has been treated for pneumonia a bit more than a month ago with azithromycin. Here in the emergency department she is given an injection of Rocephin and we will start her on some Levaquin and refill her nebulizer medication and placed on a course of prednisone.The levaquin is contraindicated with prolonged QT and she is instead started on ceftin. Departure - Departure Disposition: 01 Home, Self Care Clinical Impression: Moderate COPD (chronic obstructive pulmonary disease) Pneumonia Qualifiers: Pneumonia type: due to unspecified organism Laterality: bilateral Lung location : lower lobe of lung Qualified Code(s): J18.9 - Pneumonia, unspecified organism Condition: Stable Instructions: ED COPD Flare, ED Pneumonia Adult Follow-Up: Cheyenne Guan MD [Primary Care Provider] - Prescriptions: Albuterol 2.5 mg INH Q4H PRN #30 neb PRN Reason: Wheezing Cefuroxime Axetil [Cefuroxime] 500 mg PO BID #20 tablet predniSONE [Deltasone] 10 mg PO DAILY #26 tablet Discharge Date/Time: 11/12/17 14:29
--- NOTE | 2017-11-12 12:52 | XRAY Report ---
EXAM: CHEST RADIOGRAPHY EXAM DATE: 11/12/2017 12:41 PM. CLINICAL HISTORY: Bilateral lower lobe rhonchi. COMPARISON: None. TECHNIQUE: 2 views. FINDINGS: Lungs/Pleura: There is a right pleural effusion with underlying atelectasis and/or consolidation. The re may be involvement of the left lower lobe Mediastinum: There is borderline cardiomegaly. Sternotomy changes are noted. IMPRESSION: Right pleural effusion with underlying atelectasis and/or consolidation. There may also b e involvement of the left lower lobe. Follow-up is recommended. [facility] Referring Provider Line: [phone] SITE ID: [id number]
[2017-11-12] MEDS ORDERED: cefTRIAXone 1 GM VIAL IM STA (13:37)
[2017-11-12] MEDS ORDERED: LIDOCAINE 1% 2 ML VIAL SUBQ ONE (13:37)
[2017-11-12 14:03] VITALS: BP 159/57
== END 2017-11-12 14:29 | disposition home or self-care (01) ==
LOC: EDUNIT# → ED 10:37
DX: J44.9 Chronic obstructive pulmonary disease, unspecified (principal); J18.9 Pneumonia, unspecified organism; I45.81 Long QT syndrome; I10 Essential (primary) hypertension; I25.10 Atherosclerotic heart disease of native coronary artery without angina pectoris; I25.2 Old myocardial infarction; E11.51 Type 2 diabetes mellitus with diabetic peripheral angiopathy without gangrene; Z79.4 Long term (current) use of insulin; Z95.1 Presence of aortocoronary bypass graft; Z95.5 Presence of coronary angioplasty implant and graft; Z79.82 Long term (current) use of aspirin
CPT/HCPCS: 71046; 93005; 94640; 96372; 99283; 99284; J7620

== ENCOUNTER 2017-11-15 05:02 | Outpatient (CLI) | payer MEDICARE | END 2017-11-15 05:03 | disposition critical access hospital (66) | LOC: EMS 05:02 | PROVIDERS: ATTEND Surgery | DX: R06.02 Shortness of breath (principal) | CPT/HCPCS: A0425; A0427 ==

== ENCOUNTER 2017-11-15 05:31 | Inpatient (IN) | payer MEDICARE ==
--- NOTE | 2017-11-15 05:55 | ED Physician Documentation ---
PD HPI DYSPNEA - Stated complaint Stated Complaint: SOA - Chief complaint Chief Complaint: Resp - History obtained from History obtained from: Patient - History of Present Illness Timing - onset: How many weeks ago (1) Timing - details: Gradual onset, Waxing and waning Pain level max: 0 Pain level now: 0 Improved by: Rest Worsened by: Exertion, Coughing Associated symptoms: Cough, Wheezing. No: Fever, Hemoptysis, Chest pain / discomfort, Bilateral edema, Unilateral edema Recently seen: Emergency Dept (T+R 3 days ago for similar symptoms, prescribed antibiotic (cefuroxine), albuerol MDI, and prednisone. She returns due to gradually worsening symptoms which have progressed to dyspnea even at rest and preventing sleep last night) Review of Systems Constitutional: reports: Fatigue. denies: Fever, Chills, Sweats Cardiac: reports: Reviewed and negative Respiratory: reports: Dyspnea, Cough, Wheezing GI: reports: Reviewed and negative : denies: Dysuria, Frequency Skin: denies: Rash Musculoskeletal: reports: Reviewed and negative Neurologic: reports: Generalized weakness. denies: Focal weakness, Numbness, Headache PD PAST MEDICAL HISTORY - Past Medical History Cardiovascular: Hypertension, High cholesterol, Coronary artery disease, Peripheral Vascular Disease, [place] Respiratory: COPD, Pneumonia, Shortness of breath, CPAP use Neuro: CVA, Peripheral neuropathy Endocrine/Autoimmune: Type 2 diabetes : Incontinence HEENT: None Psych: None, Depression, Anxiety Musculoskeletal: None, Osteopenia Derm: None - Past Surgical History Past Surgical History: Yes Cardiovascular: CABG, Coronary stent, Vascular surgery, Angioplasty - Present Medications Home Medications: Ambulatory Orders Medication Instructions Recorded Confirmed Aspirin [Aspir 81] 81 mg PO DAILY 06/12/14 11/15/17 Carvedilol 25 mg PO BID 06/12/14 11/15/17 Prasugrel HCl [Effient] 10 mg PO DAILY 06/12/14 11/15/17 Amlodipine Besylate 10 mg PO QPM 11/10/15 11/15/17 Atorvastatin Calcium 40 mg PO QPM 11/10/15 11/15/17 Cilostazol 100 mg PO DAILY 11/10/15 11/15/17 Mirtazapine 15 mg PO QPM 11/10/15 11/15/17 Insulin Lispro [Humalog] 15 - 20 units SQ 0800,1200 04/07/17 11/15/17 Insulin Lispro [Humalog] 20 - 30 unit SQ 1700 04/07/17 11/15/17 Insulin NPH Human [NovoLIN N] 40 unit SUBQ BID 04/07/17 11/15/17 Isosorbide Mononitrate ER [Imdur] 30 mg PO DAILY 04/07/17 11/15/17 ALPRAZolam [Alprazolam] 0.25 mg PO DAILY PRN MDD 1 TABLET 11/15/17 11/15/17 Baclofen 10 mg PO BID 11/15/17 11/15/17 Cefuroxime Axetil [Cefuroxime] 500 mg PO [id number] 11/15/17 11/15/17 Ibuprofen 800 mg PO QPM 11/15/17 11/15/17 Prasugrel HCl [Effient] 10 mg PO DAILY #30 tablet 11/15/17 predniSONE [Prednisone] 60 mg PO .TAPER(SEE COMMENT) 11/15/17 11/15/17 - Allergies Allergies/Adverse Reactions: Allergies Allergy/AdvReac Type Severity Reaction Status Date / Time clopidogrel bisulfate * Allergy Severe Hives Verified 11/15/17 05:38 [From Plavix] Penicillins Allergy Intermediate Hives Verified 11/15/17 05:38 sertraline HCl * Allergy Intermediate throat Verified 11/15/17 05:38 [From Zoloft] swelling Heparin Analogues AdvReac Intermediate platelets Verified 11/15/17 05:38 metformin AdvReac Intermediate diarrhea Verified 11/15/17 05:38 gabapentin AdvReac explosive Verified 11/15/17 05:38 diarrhea tapes Allergy Intermediate blisters Uncoded 11/15/17 05:38 - Social History Does the pt smoke?: No Smoking Status: Never smoker Does the pt drink ETOH?: No Does the pt have substance abuse?: No - Immunizations Immunizations are current?: Yes Immunizations: TDAP >10years/unknown - POLST Patient has POLST: No PD ED PE NORMAL - Vitals Vital signs reviewed: Yes - General General: Alert and oriented X 3, No acute distress, Well developed/nourished - HEENT HEENT: Moist mucous membranes - Neck Neck: Supple, no meningeal sign - Cardiac Cardiac: RRR, No murmur - Respiratory Respiratory: No respiratory distress - Abdomen Abdomen: Soft, Non tender - Back Back: No CVA TTP - Derm Derm: Normal color, Warm and dry - Extremities Extremities: No edema - Neuro Neuro: Alert and oriented X 3 PD ED PE EXPANDED - Respiratory Respiratory: Wheezing (bilateral expiratory wheezing (audible wheezing while standing at bedside talking to patient, as well)), Decreased breath sounds Results - Vitals Vitals: Vital Signs - 24 hr 11/15/17 11/15/17 11/15/17 05:33 08:23 08:31 Temperature 36.4 C L 36.0 C L Heart Rate 76 75 76 Respiratory 22 22 14 Rate Blood Pressure 174/82 H 162/79 H 172/72 H O2 Saturation 88 L 95 98 11/15/17 08:34 Temperature Heart Rate 17 L Respiratory 16 Rate Blood Pressure O2 Saturation Oxygen O2 Source Nasal cannula Oxygen Flow Rate 4 - EKG (time done) No standard instances Rate: Rate (enter#) (69) Rhythm: NSR [place]: RAD Intervals: Normal IA QRS: Normal Ischemia: Normal ST segments - Labs Labs: Laboratory Tests 11/15/17 11/15/17 11/15/17 06:30 06:30 06:30 WBC 10.9 H RBC 4.24 Hgb 12.3 Hct 37.0 MCV 87.2 MCH 28.9 MCHC 33.2 RDW 16.6 H Plt Count 198 MPV 7.0 L Neut # 7.6 H Lymph # 2.2 Day # 1.0 Eos # 0.0 Baso # 0.1 Absolute Nucleated RBC 0.00 Nucleated RBC % 0.0 Sodium 142 Potassium 3.5 Chloride 105 Carbon Dioxide 27 Anion Gap 10.0 BUN 28 H Creatinine 1.0 Estimated GFR (MDRD) 56 L Glucose 119 H Calcium 8.7 Troponin I 0.11 B-Natriuretic Peptide Influenza A (Rapid) Influenza B (Rapid) Influenza Types A,B Ag 11/15/17 11/15/17 06:30 06:30 WBC RBC Hgb Hct MCV MCH MCHC RDW Plt Count MPV Neut # Lymph # Day # Eos # Baso # Absolute Nucleated RBC Nucleated RBC % Sodium Potassium Chloride Carbon Dioxide Anion Gap BUN Creatinine Estimated GFR (MDRD) Glucose Calcium Troponin I B-Natriuretic Peptide 455 H Influenza A (Rapid) Negative Influenza B (Rapid) Negative Influenza Types A,B Ag - - Rads (name of study) chest xray Radiology: Prelim report reviewed, See rad report PD MEDICAL DECISION MAKING - ED course Complexity details: reviewed results, re-evaluated patient, considered differential, d/w patient Departure - Departure Disposition: ED Place in Observation Clinical Impression: Dyspnea Qualifiers: Dyspnea type: unspecified Qualified Code(s): R06.00 - Dyspnea, unspecified Condition: Stable Discharge Date/Time: 11/15/17 09:32
[2017-11-15 06:49] LABS: BASOPHILS # (AUTO) 0.1 10^3/uL (0.0-0.1); BASOPHILS % (AUTO) 0.5 %; EOSINOPHILS % (AUTO) 0.2 %; HGB - HEMOGLOBIN 12.3 g/dL (12.0-16.0); LYMPHOCYTES # (AUTO) 2.2 10^3/uL (1.5-3.5); LYMPHOCYTES % (AUTO) 20.6 %; MEAN CORPUSCULAR HEMOGLOBIN 28.9 pg (27.0-31.0); MEAN CORPUSCULAR HGB CONC 33.2 g/dL (32.0-36.0); MEAN CORPUSCULAR VOLUME 87.2 fL (81.0-99.0); MONOCYTES % (AUTO) 8.9 %; NEUTROPHILS # (AUTO) 7.6 10^3/uL (1.5-6.6); NEUTROPHILS % (AUTO) 69.8 %; PLT - PLATELET COUNT 198 10^3/uL (130-450); RED BLOOD COUNT 4.24 10^6/uL (4.20-5.40); RED CELL DISTRIBUTION WIDTH 16.6 % (12.0-15.0); WHITE BLOOD COUNT 10.9 x10^3/uL (4.8-10.8)
[2017-11-15 07:12] LABS: CALCIUM 8.7 mg/dL (8.5-10.3)
--- NOTE | 2017-11-15 07:31 | XRAY Report ---
EXAM: CHEST RADIOGRAPHY EXAM DATE: 11/15/2017 07:09 AM. CLINICAL HISTORY: Dyspnea. COMPARISON: 11/12/2017. TECHNIQUE: 2 views. FINDINGS: Lungs/Pleura: Lung volumes are mildly low. Mild increased basilar congestion. Small amount of opacity at the lung bases with mild increase. Minimal blunting of the right costophrenic angle. No pneumotho rax. Mediastinum: Cardiac silhouette size appears stable. Stable prior sternotomy changes. Atherosclerotic vascular calcification. Other: None. IMPRESSION: 1. Lung volumes are mildly lower with mild increased vascular crowding and congestion. 2. Mild increased bibasilar opacities that may reflect a combination of atelectasis and/or pneumonia in the proper setting. 3. Minimal blunting of the right costophrenic angle may reflect a small effusion. [facility] Referring Provider Line: [phone] SITE ID: [id number]
[2017-11-15] MEDS ORDERED: DEXAMETHASONE 10 MG/ML VIAL IVP STA (08:05)
[2017-11-15] MEDS ORDERED: ALBUTEROL NEB 2.5 MG/3 ML INH STA (08:05)
[2017-11-15] MEDS ORDERED: HYDROcod/ACETAM 5/325 MG TABLET PO PRN (08:35)
[2017-11-15] MEDS ORDERED: ACETAMINOPHEN 325 MG TABLET PO PRN (08:35)
[2017-11-15] MEDS ORDERED: SODIUM CHLORIDE 0.9% 1,000 ML IV SCH (09:00)
[2017-11-15] MEDS: POLYETHYLENE GLYCOL 3350 17 GM PACKET PO SCH (11:26)
--- NOTE | 2017-11-15 12:15 | HISTORY & PHYSICAL EXAMINATION ---
Chief Complaint - Chief Complaint Chief Complaint: shortness of breath <Brittany Silverman - Last Filed: 11/16/17 15:45> History of Present Illness <Chito Cintron - Last Filed: 11/16/17 08:55> - Admitted From Admitted From:: ED - History Obtained From Records Reviewed: yes History obtained from: chart review, patient Exam Limitations: none <Brittany Silverman - Last Filed: 11/16/17 15:45> - History of Present Illness HPI Comment/Other: Bnony Chino is a 62-year old female with a past medical history of hypertension, hyperlipidemia, CAD, PVD, [place], COPD, PNA, SOB, MARTHA, CPAP use, CVA, peripheral neuropathy, DM type 2, incontinence, depression, anxiety, osteopenia , 3-vessel CABG in 2002, 8 coronary artery stents, peripheral vascular surgery, and chronic pain. The patient has been struggling to breath for the past 48 hours and admits to elevated blood sugars of 225-300. She states that she called 911 and it took an extra 20 minutes for EMS to arrive due to the inability to speak clearly and claims "her throat was closing off". Associated symptoms include a non-productive cough, diarrhea, increased use of home nebulizers/inhalers with no improvement, elevated blood glucose and, but denies fever, chills, N/V, chest pain or falls. She will be admitted for further treatment of pneumonia, COPD and monitored on telemetry given her prominent cardiac history. (Brittany Silverman) History - Past Medical History Cardiovascular: reports: Hypertension, High cholesterol, Coronary artery disease , Peripheral Vascular Disease, [place], Other Respiratory: reports: COPD, Pneumonia, Shortness of breath, Sleep apnea Neuro: reports: CVA (remains with right finger numbness, mild weakness of right hand/arm. Slower speech.), Peripheral neuropathy Endocrine/Autoimmune: reports: Type 2 diabetes GI: reports: GERD : reports: Incontinence HEENT: reports: None Psych: reports: Depression, Anxiety Musculoskeletal: reports: Osteopenia Derm: reports: None MRSA Hx?: No - Past Surgical History Cardiovascular: reports: CABG, Coronary stent, Cardiac catheterization, Vascular surgery, Angioplasty - Family & Social History Family History: Mother: , CAD, Diabetes, Type 2, Father: , Parkinson's Disease, Sister: Alive and Well, Brother: , Alcoholism Family History Comment/Other: Mother of CHF, DM, fathe of Parkinson's , brother of ETOH abuse, and the patient has one alive and well sister. 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 She has had 2 biological children, she gave her first son up for adoption, and has since reunited with him, she had a second son, and adopted one of her son's friend as her own. She was forced into skilled nursing in 2007 when she suffered a CVA with right sided arm weakness, and slower speech. She belongs to [employer] and remains very active. She admits to life long tobacco dependence and currently smokes 1/2 PPD, denies illicit drug or alcohol use. - Substance History Use: Uses substance without health or social issues: Tobacco Use Issues: Anxiety Disorder Abuse: Recurrent use of substance despite neg consequences: NONE Dependence: Experiences withdrawal or developed tolerances: Tobacco Dependence Issues: Anxiety Disorder Tobacco Details: Cigarettes - POLST Patient has POLST: No POLST Status: Full Code <Brittany Silverman - Last Filed: 11/16/17 15:45> Meds/Allgy <Chito Cintron - Last Filed: 11/16/17 08:55> <Brittany Silverman - Last Filed: 11/16/17 15:45> - Home Medications Home Medications: Ambulatory Orders Medication Instructions Recorded Confirmed Aspirin [Aspir 81] 81 mg PO DAILY 06/12/14 11/15/17 Carvedilol 25 mg PO BID 06/12/14 11/15/17 Prasugrel HCl [Effient] 10 mg PO DAILY 06/12/14 11/15/17 Amlodipine Besylate 10 mg PO QPM 11/10/15 11/15/17 Atorvastatin Calcium 40 mg PO QPM 11/10/15 11/15/17 Cilostazol 100 mg PO DAILY 11/10/15 11/15/17 Mirtazapine 15 mg PO QPM 11/10/15 11/15/17 Insulin Lispro [Humalog] 15 - 20 units SQ 0800,1200 04/07/17 11/15/17 Insulin Lispro [Humalog] 20 - 30 unit SQ 1700 04/07/17 11/15/17 Insulin NPH Human [NovoLIN N] 40 unit SUBQ BID 04/07/17 11/15/17 Isosorbide Mononitrate ER [Imdur] 30 mg PO DAILY 04/07/17 11/15/17 ALPRAZolam [Alprazolam] 0.25 mg PO DAILY PRN MDD 1 TABLET 11/15/17 11/15/17 Baclofen 10 mg PO BID 11/15/17 11/15/17 Cefuroxime Axetil [Cefuroxime] 500 mg PO [id number] 11/15/17 11/15/17 Ibuprofen 800 mg PO QPM 11/15/17 11/15/17 Prasugrel HCl [Effient] 10 mg PO DAILY #30 tablet 11/15/17 predniSONE [Prednisone] 60 mg PO .TAPER(SEE COMMENT) 11/15/17 11/15/17 - Allergies Allergies/Adverse Reactions: Allergies Allergy/AdvReac Type Severity Reaction Status Date / Time clopidogrel bisulfate * Allergy Severe Hives Verified 11/15/17 05:38 [From Plavix] Penicillins Allergy Intermediate Hives Verified 11/15/17 05:38 sertraline HCl * Allergy Intermediate throat Verified 11/15/17 05:38 [From Zoloft] swelling Heparin Analogues AdvReac Intermediate platelets Verified 11/15/17 05:38 metformin AdvReac Intermediate diarrhea Verified 11/15/17 05:38 gabapentin AdvReac explosive Verified 11/15/17 05:38 diarrhea tapes Allergy Intermediate blisters Uncoded 11/15/17 05:38 Review of Systems - Constitutional Constitutional: reports: Fatigue, Weakness, Poor appetite, Weight gain. denies : Fever, Chills - Eyes Eyes: reports: Vision loss, Corrective lenses. denies: Pain, Irritation - Ears, Nose & Throat Ears, Nose & Throat: reports: Hearing loss, Dentures. denies: Ear pain, Hearing aids, Tinnitus - Cardiovascular Cariovascular: reports: Irregular heart rate, Edema, Exertional dyspnea, Decr. exercise tolerance, Orthopnea. denies: Palpitations, Chest pain - Respiratory Respiratory: reports: Cough, Wheezing, Orthopnea, SOB at rest, SOB with exertion. denies: Sputum production - Gastrointestinal Gastrointestinal: reports: Abdominal distention, Diarrhea, Reflux/heartburn. denies: Abdominal pain, Constipation - Genitourinary Genitourinary: reports: Dysuria, Frequency, Urgency, Incontinence. denies: Hematuria - Musculoskeletal Musculoskeletal: reports: Back pain, Joint swelling. denies: Gout - Integumentary Integumentary: reports: Dryness. denies: Rash, Pruritis, Lesions - Neurological Neurological: reports: General weakness, Pre-existing deficit - Psychiatric Psychiatric: reports: Depression, Anxiety - Endocrine Endocrine: denies: Polyuria, Polydypsia - Hematologic/Lymphatic Hematologic/Lymphatic: denies: Anemia, Bruising, Petechiae - All Other Systems All Other Systems: reports: Reviewed and negative <Brittany Silverman - Last Filed: 11/16/17 15:45> Exam - Vital Signs Reviewed Vital Signs: Yes - Physical Exam General Appearance: positive: Alert, Moderate distress, Anxious Eyes Bilateral: positive: Normal inspection, PERRL ENT: positive: ENT inspection nml, Pharynx nml, Dry mucous membranes Neck: positive: Nml inspection, Thyroid nml, No JVD, Stiff neck Respiratory: positive: Chest non-tender, No respiratory distress, Wheezes, Rhonchi Cardiovascular: positive: No gallop, Irregularly irregular, Systolic murmur, Decreased pulse(s) Peripheral Pulses: positive: 1+ Abdomen: positive: Non-tender, Nml bowel sounds, Other (obese, soft) Back: positive: Nml inspection Skin: positive: No rash, Warm, Dry Extremities: positive: Non-tender, Full ROM, Nml appearance, Pedal edema Neurologic/Psychiatric: positive: Oriented x3, CN's nml (2-12), Motor nml, Sensation nml, Depressed mood/affect Reflexes: Bicep (R): 3+, Bicep (L): 3+ <Brittany Silverman - Last Filed: 11/16/17 15:45> - Vital Signs Vital Signs: Vital Signs x48h Temp Pulse Pulse Resp BP Pulse Ox 11/16/17 07:38 37.0 C 68 18 149/84 H 94 11/16/17 05:54 68 20 Conclusion/Plan - Lab Results Fish Bones: 11/16/17 07:04 11/16/17 07:04 <Chito Cintron - Last Filed: 11/16/17 08:55> - Problem List (1) Tobacco dependence Conclusion/Plan: The patient admits to smoking her entire adult life and 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 She currently smokes 1/2 PPD of cigarettes. Plan: Offer nicotine patch. (2) COPD (chronic obstructive pulmonary disease) Conclusion/Plan: Patient has been a life long smoker and is currently smoking 1/2 PPD of cigarettes. She takes her scheduled inhalers at home, but is not on home oxygen. Plan: Continue respiratory care with incentive spirometer, early ambulation, nebulizers, and scheduled LABA. (3) Dyspnea Conclusion/Plan: This was the patient's primary complaint when she called 911 at home. She also has a history of obstructive sleep apnea and claims to be compliant with her home CPAP. She states that when she finally called EMS, it took over 20 minutes for them to find her as they heard the wrong address due to her inability to speak clearly related to her breathing. Plan: Continue oxygen supplementation and respiratory therapy. Qualifiers: Dyspnea type: unspecified Qualified Code(s): R06.00 - Dyspnea, unspecified (4) Hyperglycemia due to type 2 diabetes mellitus Conclusion/Plan: Patient has a known history of this and states that at home her blood sugars have been elevated for the past 48 hours with reported values of 225-300's. Plan: Continue current insulin, blood sugar checks and carb controlled diet. (5) Pneumonia Conclusion/Plan: Patient was noted to have lower lung volumes, bibasilar opacities that may reflect pneumonia. Patient did have a mild elevation in WBCs, but has been afebrile. Plan: Will treat for bilateral pneumonia using IV antibiotics. Qualifiers: Pneumonia type: due to unspecified organism Laterality: bilateral Lung location: lower lobe of lung Qualified Code(s): J18.9 - Pneumonia, unspecified organism - Lab Results Lab results reviewed: Yes Fish Bones: 11/16/17 07:04 11/16/17 07:04 - Diagnostic Imaging Results Diagnostic Imaging Results: positive: Final report reviewed - EKG Results EKG Interpreted Independently: Yes EKG Comparison: Unchanged from prior EKG <Brittany Silverman - Last Filed: 11/16/17 15:45> Core Measures - Anticipated LOS I expect patient to be DC'd or transferred within 96 hours.: Yes - DVT/VTE - Prophylaxis VTE/DVT Device ordered at admit?: Yes VTE/DVT Prophylaxis med ordered at admit?: No Not Ordered - Medical Reason: Contraindicated - Stroke - Rehab Assessment Rehab services assessment to be ordered?: No Not Ordered - Medical Reason: Contraindicated - AMI - Statin at Admit Aspirin Prescribed on Admit: Yes <Brittany Silverman - Last Filed: 11/16/17 15:45>
[2017-11-15] MEDS: CARVEDILOL 12.5 MG TABLET PO SCH ×2 (12:48→21:55)
[2017-11-15] MEDS: ENOXAPARIN 40 MG/0.4 ML SYRINGE SUBQ SCH (12:48)
[2017-11-15] MEDS: CILOSTAZOL 100 MG TABLET PO SCH (12:49)
[2017-11-15] MEDS: ASPIRIN EC 81 MG TABLET PO SCH (12:50)
[2017-11-15] MEDS: ISOSORBIDE MONONITRATE ER 30 MG TABLET PO SCH (12:50)
[2017-11-15] MEDS: BACLOFEN 10 MG TABLET PO SCH ×2 (12:50→21:55)
[2017-11-15] MEDS ORDERED: SODIUM CHLORIDE 0.9% MINIBAG 100 ML IV ONE (12:51)
[2017-11-15] MEDS: SODIUM CHLORIDE FLUSH 0.9% 10 ML SYRINGE IVP SCH ×2 (12:51→16:59)
[2017-11-15] MEDS: levoFLOXacin 500 MG/100 ML 500 MG/100 ML BAG IV SCH (12:51)
[2017-11-15] MEDS: NICOTINE 21 MG PATCH TOP SCH (12:51)
[2017-11-15] MEDS: SODIUM CHLORIDE FLUSH 0.9% 10 ML SYRINGE IVP PRN ×2 (14:08→21:55)
[2017-11-15] MEDS: methylPREDNISolone SUCCINATE 40 MG/ML VIAL IVP SCH ×2 (14:08→21:55)
[2017-11-15] MEDS ORDERED: LEVALBUTEROL 1.25 MG/3 ML NEB INH PRN (15:00)
[2017-11-15] MEDS: ALBUTEROL NEB 2.5 MG/3 ML INH PRN (16:40)
[2017-11-15] MEDS: INSULIN ASPART 300 UNIT/3 ML PEN SUBQ SCH ×2 (16:57→21:06)
[2017-11-15] MEDS: ALPRAZolam 0.25 MG TABLET PO PRN (19:30)
[2017-11-15] MEDS ORDERED: INSULIN ASPART 300 UNIT/3 ML PEN SUBQ SCH (20:56)
[2017-11-15] MEDS ORDERED: INSULIN GLARGINE 300 UNIT/3 ML PEN SUBQ SCH (21:00)
[2017-11-15] MEDS: INSULIN NPH HUMAN 100 UNIT/1 ML 10 ML MDV SUBQ SCH (21:50)
[2017-11-15] MEDS: MIRTAZAPINE 15 MG TABLET PO SCH (21:54)
[2017-11-15] MEDS: amLODIPine 5 MG TABLET PO SCH (21:54)
[2017-11-15] MEDS: TEMAZEPAM 15 MG CAPSULE PO PRN (21:54)
[2017-11-15] MEDS: ATORVASTATIN 40 MG TABLET PO SCH (21:55)
[2017-11-15] MEDS: IBUPROFEN 800 MG TABLET PO SCH (21:55)
[2017-11-16] MEDS: methylPREDNISolone SUCCINATE 40 MG/ML VIAL IVP SCH ×3 (05:46→21:00)
[2017-11-16] MEDS: SODIUM CHLORIDE FLUSH 0.9% 10 ML SYRINGE IVP SCH ×4 (05:47→23:53)
[2017-11-16] MEDS: ALBUTEROL NEB 2.5 MG/3 ML INH PRN ×2 (05:59→12:03)
[2017-11-16 07:38] LABS: ALBUMIN/GLOBULIN RATIO 0.9 (1.0-2.2); BILIRUBIN,TOTAL 0.4 mg/dL (0.2-1.0); CALCIUM 8.7 mg/dL (8.5-10.3); CREATININE 1.1 mg/dL (0.4-1.0); TOTAL PROTEIN 6.2 g/dL (6.7-8.2)
[2017-11-16 07:40] LABS: BASOPHILS % (AUTO) 0.5 %; HGB - HEMOGLOBIN 11.9 g/dL (12.0-16.0); LYMPHOCYTES # (AUTO) 0.8 10^3/uL (1.5-3.5); LYMPHOCYTES % (AUTO) 8.6 %; MEAN CORPUSCULAR HEMOGLOBIN 29.2 pg (27.0-31.0); MEAN CORPUSCULAR HGB CONC 33.6 g/dL (32.0-36.0); MEAN CORPUSCULAR VOLUME 86.8 fL (81.0-99.0); MEAN PLATELET VOLUME 7.2 fL (7.9-10.8); MONOCYTES # (AUTO) 0.6 10^3/uL (0.0-1.0); MONOCYTES % (AUTO) 6.1 %; NEUTROPHILS # (AUTO) 7.7 10^3/uL (1.5-6.6); NEUTROPHILS % (AUTO) 84.8 %; PLT - PLATELET COUNT 192 10^3/uL (130-450); RED BLOOD COUNT 4.09 10^6/uL (4.20-5.40); RED CELL DISTRIBUTION WIDTH 15.8 % (12.0-15.0); WHITE BLOOD COUNT 9.1 x10^3/uL (4.8-10.8)
[2017-11-16] MEDS: POLYETHYLENE GLYCOL 3350 17 GM PACKET PO SCH ×2 (08:36→08:58)
[2017-11-16] MEDS: CILOSTAZOL 100 MG TABLET PO SCH (08:37)
[2017-11-16] MEDS: ASPIRIN EC 81 MG TABLET PO SCH (08:37)
[2017-11-16] MEDS: BACLOFEN 10 MG TABLET PO SCH ×2 (08:37→20:59)
[2017-11-16] MEDS: ENOXAPARIN 40 MG/0.4 ML SYRINGE SUBQ SCH (08:37)
[2017-11-16] MEDS: ISOSORBIDE MONONITRATE ER 30 MG TABLET PO SCH (08:37)
[2017-11-16] MEDS: CARVEDILOL 12.5 MG TABLET PO SCH ×2 (08:37→20:59)
[2017-11-16] MEDS: INSULIN ASPART 300 UNIT/3 ML PEN SUBQ SCH ×7 (08:38→21:01)
[2017-11-16] MEDS: NICOTINE 21 MG PATCH TOP SCH (08:45)
[2017-11-16] MEDS: SODIUM CHLORIDE FLUSH 0.9% 10 ML SYRINGE IVP PRN (13:47)
[2017-11-16] MEDS: levoFLOXacin 500 MG/100 ML 500 MG/100 ML BAG IV SCH (13:48)
--- NOTE | 2017-11-16 15:45 | PROVIDER PROGRESS NOTE ---
Subjective - Prog Note Date Prog Note Date: 11/16/17 Prog Note Time: 10:00 - Subjective Pt reports feeling: Improved Subjective: Bonny admits easier breathing. She states that her worst times are first thing in the morning. She denies chest pain, N/V, increased shortness of breath , or a new cough. Current Medications - Current Medications Current Medications: Active Medications Acetaminophen (Tylenol) 650 mg PO Q4HR PRN PRN Reason: Pain 1 to 4 Acetaminophen/Hydrocodone Bitart ([place] 5/325) 1 tab PO Q4HR PRN PRN Reason: Pain 5 to 7 Albuterol () 2.5 mg INH RTQ4H PRN PRN Reason: Wheezing Last Admin: 11/17/17 03:28 Dose: 2.5 mg Alprazolam (Xanax) 0.25 mg PO DAILY PRN PRN Reason: Anxiety Last Admin: 11/16/17 20:59 Dose: 0.25 mg Amlodipine Besylate (Norvasc) 10 mg PO QPM [facility] Last Admin: 11/16/17 20:59 Dose: 10 mg Aspirin (Ecotrin) 81 mg PO DAILY [facility] Last Admin: 11/16/17 08:37 Dose: 81 mg Atorvastatin Calcium (Lipitor) 40 mg PO QPM [facility] Last Admin: 11/16/17 20:59 Dose: 40 mg Baclofen (Lioresal) 10 mg PO BID [facility] Last Admin: 11/16/17 20:59 Dose: 10 mg Carvedilol (Coreg) 25 mg PO BID [facility] Last Admin: 11/16/17 20:59 Dose: 25 mg Cilostazol (Pletal) 100 mg PO DAILY [facility] Last Admin: 11/16/17 08:37 Dose: 100 mg Enoxaparin Sodium (Lovenox) 40 mg SUBQ DAILY [facility] Last Admin: 11/16/17 08:37 Dose: 40 mg Levofloxacin (Levaquin 500 Mg/100 Ml) 500 mg in 100 mls @ 100 mls/hr IV Q24H [facility] Last Infusion: 11/16/17 15:00 Dose: Infused Ibuprofen (Motrin) 800 mg PO QPM [facility] Last Admin: 11/16/17 20:59 Dose: 800 mg Insulin Aspart (Novolog) 10 unit SUBQ TIDWM KAMAR PRN Reason: Protocol Last Admin: 11/16/17 17:00 Dose: 10 unit Insulin Aspart (Novolog) 3 - 11 unit SUBQ 0800,1200,1700,2100 [facility] PRN Reason: Protocol Last Admin: 11/16/17 21:01 Dose: 7 unit Insulin Human NPH (Novolin N) 40 unit SUBQ QPM [facility] Last Admin: 11/16/17 21:00 Dose: 40 unit Isosorbide Mononitrate (Imdur) 30 mg PO DAILY [facility] Last Admin: 11/16/17 08:37 Dose: 30 mg Methylprednisolone (Solu-Medrol (40mg Vial)) 40 mg IVP TID [facility] Last Admin: 11/17/17 05:13 Dose: 40 mg Mirtazapine (Remeron) 15 mg PO QPM [facility] Last Admin: 11/16/17 20:59 Dose: 15 mg Nicotine (Nicoderm) 1 patch TOP DAILY [facility] Last Admin: 11/16/17 08:45 Dose: Not Given (Prasugrel Hcl [ (Effient] 10 Mg) Tab) 1 each PO DAILY [facility] Last Admin: 11/16/17 08:45 Dose: Not Given Polyethylene Glycol (Miralax) 17 gm PO DAILY [facility] Last Admin: 11/16/17 08:58 Dose: Not Given Sodium Chloride (Normal Saline Flush 0.9%) 10 ml IVP PRN PRN PRN Reason: NEEDED PER PROVIDER ORDERS Last Admin: 11/17/17 05:14 Dose: 10 ml Sodium Chloride (Normal Saline Flush 0.9%) 10 ml IVP 0100,0900,1700 [facility] Last Admin: 11/16/17 23:53 Dose: 10 ml Temazepam (Restoril) 15 mg PO QPM PRN PRN Reason: Insomnia Last Admin: 11/16/17 20:59 Dose: 15 mg Aspirin [Aspir 81] 81 mg PO DAILY 06/12/14 Carvedilol 25 mg PO BID 06/12/14 Prasugrel HCl [Effient] 10 mg PO DAILY 06/12/14 Amlodipine Besylate 10 mg PO QPM 11/10/15 Atorvastatin Calcium 40 mg PO QPM 11/10/15 Cilostazol 100 mg PO DAILY 11/10/15 Mirtazapine 15 mg PO QPM 11/10/15 Insulin Lispro [Humalog] 15 - 20 units SQ 0800,1200 07/16/17 Insulin Lispro [Humalog] 20 - 30 unit SQ 1700 04/07/17 Insulin NPH Human [NovoLIN N] 40 unit SUBQ BID 04/07/17 Isosorbide Mononitrate ER [Imdur] 30 mg PO DAILY 04/07/17 ALPRAZolam [Alprazolam] 0.25 mg PO DAILY PRN MDD 1 TABLET 11/15/17 Baclofen 10 mg PO BID 11/15/17 Cefuroxime Axetil [Cefuroxime] 500 mg PO [id number] 11/15/17 Ibuprofen 800 mg PO QPM 11/15/17 predniSONE [Prednisone] 60 mg PO .TAPER(SEE COMMENT) 11/15/17 Objective - Vital Signs/Intake & Output Reviewed Vital Signs: Yes Vital Signs: Vital Signs x48h Temp Pulse Pulse Resp BP Pulse Ox 11/16/17 15:39 36.6 C 64 20 155/61 H 96 11/16/17 11:55 80 20 Intake & Output: Intake & Output 11/13/17 11/14/17 11/15/17 11/16/17 23:59 23:59 23:59 23:59 Intake Total 1040 Balance 1040 - Objective General Appearance: positive: No acute distress, Alert Eyes Bilateral: positive: Normal inspection, PERRL ENT: positive: ENT inspection nml, Pharynx nml, No signs of dehydration Neck: positive: Nml inspection, Thyroid nml, No JVD, Trachea midline Respiratory: positive: Chest non-tender, No respiratory distress, Breath sounds nml Cardiovascular: positive: No gallop, Irregularly irregular, Systolic murmur, Decreased pulse(s) Peripheral Pulses: 1+ Radial (R), 1+ Radial (L) Abdomen: positive: Non-tender, No organomegaly, Nml bowel sounds, Other (obese, soft.) Back: positive: Nml inspection Skin: positive: No rash, Warm, Dry Extremities: positive: Non-tender, Full ROM, Nml appearance, Pedal edema Neurologic/Psychiatric: positive: Oriented x3, CN's nml (2-12), Motor nml, Sensation nml, Depressed mood/affect Reflexes: Bicep (R): 2+, Bicep (L): 2+ - Lab Results Fish Bones: 11/17/17 05:30 11/17/17 05:30 - Diagnostic Imaging Diagnostic Imaging Results: positive: Final report reviewed Assessment/Plan - Problem List (1) Tobacco dependence Impression: The patient admits to smoking her entire adult life and 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 She currently smokes 1/2 PPD of cigarettes. Plan: Offer nicotine patch. (2) COPD (chronic obstructive pulmonary disease) Impression: Patient has been a life long smoker and is currently smoking 1/2 PPD of cigarettes. She takes her scheduled inhalers at home, but is not on home oxygen. Plan: Continue respiratory care with incentive spirometer, early ambulation, nebulizers, and scheduled LABA. (3) Dyspnea Impression: This was the patient's primary complaint when she called 911 at home. She also has a history of obstructive sleep apnea and claims to be compliant with her home CPAP. She states that when she finally called EMS, it took over 20 minutes for them to find her as they heard the wrong address due to her inability to speak clearly related to her breathing. Plan: Continue oxygen supplementation and respiratory therapy. Qualifiers: Dyspnea type: unspecified Qualified Code(s): R06.00 - Dyspnea, unspecified (4) Hyperglycemia due to type 2 diabetes mellitus Impression: Patient has a known history of this and states that at home her blood sugars have been elevated for the past 48 hours with reported values of 225-300's. Plan: Continue current insulin, blood sugar checks and carb controlled diet. (5) Pneumonia Impression: Patient was noted to have lower lung volumes, bibasilar opacities that may reflect pneumonia. Patient did have a mild elevation in WBCs, but has been afebrile. Plan: Will treat for bilateral pneumonia using IV antibiotics. Qualifiers: Pneumonia type: due to unspecified organism Laterality: bilateral Lung location: lower lobe of lung Qualified Code(s): J18.9 - Pneumonia, unspecified organism
[2017-11-16] MEDS: TEMAZEPAM 15 MG CAPSULE PO PRN (20:59)
[2017-11-16] MEDS: ALPRAZolam 0.25 MG TABLET PO PRN (20:59)
[2017-11-16] MEDS: MIRTAZAPINE 15 MG TABLET PO SCH (20:59)
[2017-11-16] MEDS: IBUPROFEN 800 MG TABLET PO SCH (20:59)
[2017-11-16] MEDS: amLODIPine 5 MG TABLET PO SCH (20:59)
[2017-11-16] MEDS: ATORVASTATIN 40 MG TABLET PO SCH (20:59)
[2017-11-16] MEDS: INSULIN NPH HUMAN 100 UNIT/1 ML 10 ML MDV SUBQ SCH (21:00)
[2017-11-17 01:53] LABS: BILIRUBIN,URINE NEGATIVE (NEGATIVE); GLUCOSE, URINE (UA) >=1000 mg/dL (NEGATIVE); KETONES,URINE (UA) NEGATIVE (NEGATIVE); LEUKOCYTE ESTERASE, URINE NEGATIVE (NEGATIVE); NITRITE,URINE NEGATIVE (NEGATIVE); OCCULT BLOOD,URINE SMALL (NEGATIVE); PH,URINE 5.5 PH (5.0-7.5); PROTEIN,URINE >=300 mg/dL (NEGATIVE); UROBILINOGEN,URINE 0.2 (NORMAL) E.U./dL (NORMAL)
[2017-11-17 02:54] LABS: BACTERIA,URINE None Seen /HPF (None Seen); CLARITY,URINE CLEAR (CLEAR); RBC,URINE None Seen /HPF (0-5); SQUAMOUS EPITHELIAL CELL,UR RARE Squamous (<= Few)
[2017-11-17] MEDS: ALBUTEROL NEB 2.5 MG/3 ML INH PRN (03:28)
[2017-11-17] MEDS: methylPREDNISolone SUCCINATE 40 MG/ML VIAL IVP SCH (05:13)
[2017-11-17] MEDS: SODIUM CHLORIDE FLUSH 0.9% 10 ML SYRINGE IVP PRN (05:14)
[2017-11-17 06:08] LABS: BASOPHILS % (AUTO) 0.2 %; HGB - HEMOGLOBIN 12.2 g/dL (12.0-16.0); LYMPHOCYTES # (AUTO) 1.1 10^3/uL (1.5-3.5); LYMPHOCYTES % (AUTO) 9.2 %; MEAN CORPUSCULAR HEMOGLOBIN 28.6 pg (27.0-31.0); MEAN CORPUSCULAR HGB CONC 32.9 g/dL (32.0-36.0); MEAN PLATELET VOLUME 7.3 fL (7.9-10.8); MONOCYTES # (AUTO) 0.5 10^3/uL (0.0-1.0); MONOCYTES % (AUTO) 4.1 %; NEUTROPHILS # (AUTO) 10.1 10^3/uL (1.5-6.6); NEUTROPHILS % (AUTO) 86.5 %; PLT - PLATELET COUNT 196 10^3/uL (130-450); RED BLOOD COUNT 4.27 10^6/uL (4.20-5.40); RED CELL DISTRIBUTION WIDTH 16.4 % (12.0-15.0); WHITE BLOOD COUNT 11.6 x10^3/uL (4.8-10.8)
[2017-11-17 06:23] LABS: ALBUMIN/GLOBULIN RATIO 0.9 (1.0-2.2); BILIRUBIN,TOTAL 0.3 mg/dL (0.2-1.0); CALCIUM 8.8 mg/dL (8.5-10.3); CREATININE 1.1 mg/dL (0.4-1.0); TOTAL PROTEIN 6.2 g/dL (6.7-8.2)
--- NOTE | 2017-11-17 07:16 | Discharge Plan ---
Discharge Plan Disposition: Home, Self Care Condition: Good Prescriptions: HYDROcod/ACETAM 5/325 [[place] 5/325] 1 tab PO Q4HR PRN #20 tablet PRN Reason: Pain 5 to 7 Benzonatate [Tessalon Perle] 100 mg PO Q4H PRN #30 capsule PRN Reason: Cough Benzonatate [Tessalon Perle] 100 mg PO Q4H #30 capsule levoFLOXacin [Levofloxacin] 500 mg PO DAILY 10 Days #10 tablet levoFLOXacin [Levofloxacin] 500 mg PO DAILY 10 Days #10 tablet Prasugrel HCl [Effient] 10 mg PO DAILY #30 tablet predniSONE [Prednisone] 20 mg PO DAILY 6 Days #9 tablet predniSONE [Prednisone] 20 mg PO DAILY 6 Days #9 tablet Saccharomyces Boulardii [Florastor] 250 mg PO BID 20 Days #40 capsule Diet: Diabetic Activity Restrictions: No Restrictions Shower Restrictions: No Driving Restrictions: No Weight Bearing: Full Weight Additional Instructions or Follow Up instructions: You were admitted to the hospital for a COPD exacerbation and you were found to have pneumonia. You started on IV antibiotics that will continue at home for 10 more days. You should also have steroids for ease of breathing and to heal your pneumonia. You will be given an oxygen walking test by our respiratory therapy department. You did not qualify for home oxygen. You were given pain medication and a cough suppressant to help you out at home. Please see your PCP within a week. No Smoking: If you smoke, Please STOP! Call for help.
--- NOTE | 2017-11-17 07:19 | DISCHARGE SUMMARY ---
Discharge Summary Admit Date: 11/15/17 Discharge Date: 11/17/17 Discharging Provider: LYNDON Sim Primary Care Provider: Cheyenne Guan Code Status: Attempt Resuscitation Condition at Discharge: Good Discharge Disposition: 01 Home, Self Care - DIAGNOSES Admission Diagnoses: COPD (chronic obstructive pulmonary disease) (J44.9) Anxiety (F41.9) Discharge Diagnoses with Status of Each Condition: COPD (chronic obstructive pulmonary disease) (J44.9) chronic, stable. Anxiety (F41.9) chronic, stable. Pneumonia (J18.9) new on this admit, medications to continue. Tobacco dependence (F17.200) chronic, stable. Patient plans to continue. - HPI History of Present Illness: Bonny Chino is a 62-year old female with a past medical history of hypertension, hyperlipidemia, CAD, PVD, NC, COPD, PNA, SOB, MARTHA, CPAP use, CVA, peripheral neuropathy, DM type 2, incontinence, depression, anxiety, osteopenia , 3-vessel CABG in 2002, 8 coronary artery stents, peripheral vascular surgery, and chronic pain. The patient has been struggling to breath for the past 48 hours and admits to elevated blood sugars of 225-300. She states that she called 911 and it took an extra 20 minutes for EMS to arrive due to the inability to speak clearly and claims "her throat was closing off". Associated symptoms include a non-productive cough, diarrhea, increased use of home nebulizers/inhalers with no improvement, elevated blood glucose and, but denies fever, chills, N/V, chest pain or falls. She will be admitted for further treatment of pneumonia, COPD and monitored on telemetry given her prominent cardiac history. 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 She currently smokes 1/2 PPD of cigarettes. Patient was offered a nicotine patch throughout her stay, but declined. (2) COPD (chronic obstructive pulmonary disease)- Patient has been a life long smoker and is currently smoking 1/2 PPD of cigarettes. She takes her scheduled inhalers at home, but is not on home oxygen. Patient had continuous respiratory care using a flutter valve device, offered early ambulation, nebulizers, and scheduled LABA. (3) Dyspnea- This was the patient's primary complaint when she called 911 at home. She also has a history of obstructive sleep apnea and claims to be compliant with her home CPAP. She states that when she finally called EMS, it took over 20 minutes for them to find her as they heard the wrong address due to her inability to speak clearly related to her breathing. Patient was continued on oxygen supplementation and respiratory therapy. (4) Hyperglycemia due to type 2 diabetes mellitus- Patient has a known history of this and states that at home her blood sugars have been elevated for the past 48 hours with reported values of 225-300's. Patient was continued on her home Lantus dose and sliding scale insulin. Her blood sugars were checked and she was given a carb controlled diet. (5) Pneumonia- Patient was noted to have lower lung volumes, bibasilar opacities that may reflect pneumonia. Patient did have a mild elevation in WBCs , but has been afebrile. Patient was treated for bilateral pneumonia using IV antibiotics. Patient was transported home via private car in stable condition. - ALLERGIES Allergies/Adverse Reactions: Allergies Allergy/AdvReac Type Severity Reaction Status Date / Time clopidogrel bisulfate * Allergy Severe Hives Verified 11/15/17 05:38 [From Plavix] Penicillins Allergy Intermediate Hives Verified 11/15/17 05:38 sertraline HCl * Allergy Intermediate throat Verified 11/15/17 05:38 [From Zoloft] swelling Heparin Analogues AdvReac Intermediate platelets Verified 11/15/17 05:38 metformin AdvReac Intermediate diarrhea Verified 11/15/17 05:38 gabapentin AdvReac explosive Verified 11/15/17 05:38 diarrhea tapes Allergy Intermediate blisters Uncoded 11/15/17 05:38 - MEDICATIONS Home Medications: Ambulatory Orders Medication Instructions Recorded Confirmed Aspirin [Aspir 81] 81 mg PO DAILY 06/12/14 11/15/17 Carvedilol 25 mg PO BID 06/12/14 11/15/17 Prasugrel HCl [Effient] 10 mg PO DAILY 06/12/14 11/15/17 Amlodipine Besylate 10 mg PO QPM 11/10/15 11/15/17 Atorvastatin Calcium 40 mg PO QPM 11/10/15 11/15/17 Cilostazol 100 mg PO DAILY 11/10/15 11/15/17 Mirtazapine 15 mg PO QPM 11/10/15 11/15/17 Insulin Lispro [Humalog] 15 - 20 units SQ 0800,1200 04/07/17 11/15/17 Insulin Lispro [Humalog] 20 - 30 unit SQ 1700 04/07/17 11/15/17 Insulin NPH Human [NovoLIN N] 40 unit SUBQ BID 04/07/17 11/15/17 Isosorbide Mononitrate ER [Imdur] 30 mg PO DAILY 04/07/17 11/15/17 ALPRAZolam [Alprazolam] 0.25 mg PO DAILY PRN MDD 1 TABLET 11/15/17 11/15/17 Baclofen 10 mg PO BID 11/15/17 11/15/17 Ibuprofen 800 mg PO QPM 11/15/17 11/15/17 Prasugrel HCl [Effient] 10 mg PO DAILY #30 tablet 11/15/17 Benzonatate [Tessalon Perle] 100 mg PO Q4H #30 capsule 11/17/17 Benzonatate [Tessalon Perle] 100 mg PO Q4H PRN #30 capsule 11/17/17 HYDROcod/ACETAM 5/325 [[place] 5/325] 1 tab PO Q4HR PRN #20 tablet 11/17/17 Saccharomyces Boulardii [Florastor] 250 mg PO BID 20 Days #40 capsule 11/17/17 levoFLOXacin [Levofloxacin] 500 mg PO DAILY 10 Days #10 tablet 11/17/17 levoFLOXacin [Levofloxacin] 500 mg PO DAILY 10 Days #10 tablet 11/17/17 predniSONE [Prednisone] 20 mg PO DAILY 6 Days #9 tablet 11/17/17 predniSONE [Prednisone] 20 mg PO DAILY 6 Days #9 tablet 11/17/17 - PHYSICAL EXAM AT DISCHARGE General Appearance: positive: No acute distress, Alert Eyes Bilateral: positive: Normal inspection, PERRL ENT: positive: ENT inspection nml, Pharynx nml, No signs of dehydration Neck: positive: Nml inspection, Thyroid nml, No JVD, Trachea midline Respiratory: positive: Chest non-tender, No respiratory distress, Other ( crackles in bilateral low lobes) Cardiovascular: positive: No gallop, Irregularly irregular, Systolic murmur, Decreased pulse(s) Peripheral Pulses: positive: 1+ Abdomen: positive: Non-tender, Nml bowel sounds Back: positive: Nml inspection Skin: positive: No rash, Warm, Dry Extremities: positive: Non-tender, Full ROM, Nml appearance, Pedal edema ( chronic BLE), Joint swelling Neurologic/Psychiatric: positive: Oriented x3, CN's nml (2-12), Motor nml, Sensation nml, Depressed mood/affect Reflexes: Bicep (R): 2+, Bicep (L): 2+ - LABS Result Diagrams: 11/17/17 05:30 11/17/17 05:30 - DIAGNOSTIC IMAGING Diagnostic Imaging Results: Final report reviewed Diagnostic Imaging Results Comments: EXAM: CHEST RADIOGRAPHY EXAM DATE: 11/15/2017 07:09 AM. CLINICAL HISTORY: Dyspnea. COMPARISON: 11/12/2017. TECHNIQUE: 2 views. FINDINGS: Lungs/Pleura: Lung volumes are mildly low. Mild increased basilar congestion. Small amount of opacity at the lung bases with mild increase. Minimal blunting of the right costophrenic angle. No pneumothorax. Mediastinum: Cardiac silhouette size appears stable. Stable prior sternotomy changes. Atherosclerotic vascular calcification. IMPRESSION: 1. Lung volumes are mildly lower with mild increased vascular crowding and congestion. 2. Mild increased bibasilar opacities that may reflect a combination of atelectasis and/or pneumonia in the proper setting. 3. Minimal blunting of the right costophrenic angle may reflect a small effusion. - FOLLOW UP Follow Up: Disposition: 01 Home, Self Care Condition: Good Prescriptions: HYDROcod/ACETAM 5/325 [[place] 5/325] 1 tab PO Q4HR PRN #20 tablet PRN Reason: Pain 5 to 7 Benzonatate [Tessalon Perle] 100 mg PO Q4H PRN #30 capsule PRN Reason: Cough Benzonatate [Tessalon Perle] 100 mg PO Q4H #30 capsule levoFLOXacin [Levofloxacin] 500 mg PO DAILY 10 Days #10 tablet levoFLOXacin [Levofloxacin] 500 mg PO DAILY 10 Days #10 tablet Prasugrel HCl [Effient] 10 mg PO DAILY #30 tablet predniSONE [Prednisone] 20 mg PO DAILY 6 Days #9 tablet predniSONE [Prednisone] 20 mg PO DAILY 6 Days #9 tablet Saccharomyces Boulardii [Florastor] 250 mg PO BID 20 Days #40 capsule Diet: Diabetic Activity Restrictions: No Restrictions Shower Restrictions: No Driving Restrictions: No Weight Bearing: Full Weight Additional Instructions or Follow Up instructions: You were admitted to the hospital for a COPD exacerbation and you were found to have pneumonia. You started on IV antibiotics that will continue at home for 10 more days. You should also have steroids for ease of breathing and to heal your pneumonia. You will be given an oxygen walking test by our respiratory therapy department. You did not qualify for home oxygen. You were given pain medication and a cough suppressant to help you out at home. Please see your PCP within a week. - TIME SPENT Time Spent in Discharge (Minutes): 60
[2017-11-17 07:48] VITALS: BP 176/63
[2017-11-17] MEDS: INSULIN ASPART 300 UNIT/3 ML PEN SUBQ SCH ×2 (08:08)
[2017-11-17] MEDS: SODIUM CHLORIDE FLUSH 0.9% 10 ML SYRINGE IVP SCH (09:22)
[2017-11-17] MEDS: ASPIRIN EC 81 MG TABLET PO SCH (09:22)
[2017-11-17] MEDS: CILOSTAZOL 100 MG TABLET PO SCH (09:22)
[2017-11-17] MEDS: ISOSORBIDE MONONITRATE ER 30 MG TABLET PO SCH (09:22)
[2017-11-17] MEDS: BACLOFEN 10 MG TABLET PO SCH (09:23)
[2017-11-17] MEDS: CARVEDILOL 12.5 MG TABLET PO SCH (09:23)
[2017-11-17] MEDS: NICOTINE 21 MG PATCH TOP SCH (09:26)
[2017-11-17] MEDS: ENOXAPARIN 40 MG/0.4 ML SYRINGE SUBQ SCH (09:26)
[2017-11-17] MEDS: POLYETHYLENE GLYCOL 3350 17 GM PACKET PO SCH (09:26)
== END 2017-11-17 10:50 | disposition home or self-care (01) | DRG 190 ==
LOC: EDUNIT# → ED 05:31 → OBS 08:35 → OBSVTOIN 11-16 08:26 → MS2 11-16 11:38
PROVIDERS: ADMIT Nurse Practitioner; ATTEND Nurse Practitioner
DX: J44.0 Chronic obstructive pulmonary disease with (acute) lower respiratory infection (principal); J18.9 Pneumonia, unspecified organism; F17.210 Nicotine dependence, cigarettes, uncomplicated; J44.1 Chronic obstructive pulmonary disease with (acute) exacerbation; G47.33 Obstructive sleep apnea (adult) (pediatric); E11.65 Type 2 diabetes mellitus with hyperglycemia; E11.42 Type 2 diabetes mellitus with diabetic polyneuropathy; I10 Essential (primary) hypertension; E78.5 Hyperlipidemia, unspecified; I25.10 Atherosclerotic heart disease of native coronary artery without angina pectoris; I73.9 Peripheral vascular disease, unspecified; R32 Unspecified urinary incontinence; F32.9 Major depressive disorder, single episode, unspecified; F41.9 Anxiety disorder, unspecified; G89.29 Other chronic pain; M85.80 Other specified disorders of bone density and structure, unspecified site; H54.7 Unspecified visual loss; H91.90 Unspecified hearing loss, unspecified ear; Z95.1 Presence of aortocoronary bypass graft; Z95.5 Presence of coronary angioplasty implant and graft; Z79.4 Long term (current) use of insulin; Z79.82 Long term (current) use of aspirin; Z79.52 Long term (current) use of systemic steroids; Z87.01 Personal history of pneumonia (recurrent); Z86.73 Personal history of transient ischemic attack (TIA), and cerebral infarction without residual deficits; I25.2 Old myocardial infarction
CPT/HCPCS: 36415; 71046; 80048; 80053; 81001; 83880; 84484; 85025; 87086; 87275; 87276; 93005; 94640; 94664; 94761; 96365; 96375; 96376; 99284; 99285

== ENCOUNTER 2017-11-22 11:22 | Outpatient (CLI) | payer MEDICARE | END 2017-11-22 11:23 | disposition home or self-care (01) | LOC: DI 11:22 | PROVIDERS: ATTEND Family Medicine | DX: I25.810 Atherosclerosis of coronary artery bypass graft(s) without angina pectoris (principal); I73.9 Peripheral vascular disease, unspecified; I10 Essential (primary) hypertension; I51.7 Cardiomegaly | CPT/HCPCS: 93306 ==

== ENCOUNTER 2017-12-13 10:54 | Outpatient (CLI) | payer MEDICARE ==
[2017-12-13 18:41] LABS: BASOPHILS # (AUTO) 0.1 10^3/uL (0.0-0.1); BASOPHILS % (AUTO) 0.9 %; EOSINOPHILS # (AUTO) 0.2 10^3/uL (0.0-0.7); EOSINOPHILS % (AUTO) 2.9 %; HGB - HEMOGLOBIN 12.7 g/dL (12.0-16.0); LYMPHOCYTES # (AUTO) 1.8 10^3/uL (1.5-3.5); LYMPHOCYTES % (AUTO) 25.7 %; MEAN CORPUSCULAR HEMOGLOBIN 28.4 pg (27.0-31.0); MEAN CORPUSCULAR HGB CONC 33.1 g/dL (32.0-36.0); MEAN CORPUSCULAR VOLUME 85.9 fL (81.0-99.0); MEAN PLATELET VOLUME 7.1 fL (7.9-10.8); MONOCYTES # (AUTO) 0.8 10^3/uL (0.0-1.0); MONOCYTES % (AUTO) 11.1 %; NEUTROPHILS # (AUTO) 4.2 10^3/uL (1.5-6.6); NEUTROPHILS % (AUTO) 59.4 %; PLT - PLATELET COUNT 213 10^3/uL (130-450); RED BLOOD COUNT 4.48 10^6/uL (4.20-5.40); RED CELL DISTRIBUTION WIDTH 16.1 % (12.0-15.0)
[2017-12-13 19:10] LABS: CREATININE 1.1 mg/dL (0.4-1.0)
== END 2017-12-13 10:55 | disposition home or self-care (01) ==
LOC: LAB.WCP 10:54
PROVIDERS: ATTEND Internal Medicine Cardiovascular Disease
DX: I25.118 Atherosclerotic heart disease of native coronary artery with other forms of angina pectoris (principal)
CPT/HCPCS: 36415; 80048; 85025

== ENCOUNTER 2018-01-10 15:27 | Emergency (ER) | payer MEDICARE ==
--- NOTE | 2018-01-10 15:42 | ED Physician Documentation ---
History of Present Illness - Stated complaint Stated Complaint: LIGHT HEADED/WEAK - Chief complaint Chief Complaint: Cardiac - History obtained from History obtained from: Patient, Family - History of Present Illness Timing: Yesterday Pain level max: 0 Pain level now: 0 Improved by: rest Worsened by: exertion - Additonal information Additional information: Patient is a 62 yo F with a history of COPD, CAD, DM. Cardiac stent placed at [facility] in [place]. States just feeling weak. No focal neuro deficits. Feels more short of breath today and yesterday than normal. Uses her nebulizer at night. Review of Systems Ten Systems: 10 systems reviewed and negative Constitutional: denies: Fever, Chills Ears: denies: Ear pain Nose: denies: Rhinorrhea / runny nose, Congestion Throat: denies: Sore throat Cardiac: denies: Chest pain / pressure, Palpitations Respiratory: reports: Dyspnea, Cough (occasional), Wheezing. denies: Hemoptysis GI: denies: Abdominal Pain, Nausea, Vomiting, Diarrhea : denies: Dysuria Skin: denies: Rash Musculoskeletal: denies: Neck pain, Back pain Neurologic: denies: Headache PD PAST MEDICAL HISTORY - Past Medical History Cardiovascular: Hypertension, High cholesterol, Coronary artery disease, Peripheral Vascular Disease, [place], Other Respiratory: COPD, Pneumonia, Shortness of breath, Sleep apnea Neuro: CVA (remains with right finger numbness, mild weakness of right hand/ arm. Slower speech.), Peripheral neuropathy Endocrine/Autoimmune: Type 2 diabetes GI: GERD : Incontinence HEENT: None Psych: Depression, Anxiety Musculoskeletal: Osteopenia Derm: None - Past Surgical History Past Surgical History: Yes Cardiovascular: CABG, Coronary stent, Cardiac catheterization, Vascular surgery , Angioplasty - Present Medications Home Medications: Ambulatory Orders Medication Instructions Recorded Confirmed Aspirin [Aspir 81] 81 mg PO DAILY 06/12/14 11/15/17 Carvedilol 25 mg PO BID 06/12/14 11/15/17 Amlodipine Besylate 10 mg PO QPM 11/10/15 11/15/17 Atorvastatin Calcium 40 mg PO QPM 11/10/15 11/15/17 Cilostazol 100 mg PO DAILY 11/10/15 11/15/17 Mirtazapine 15 mg PO QPM 11/10/15 11/15/17 Insulin Lispro [Humalog] 15 - 20 units SQ 0800,1200 04/07/17 11/15/17 Insulin Lispro [Humalog] 20 - 30 unit SQ 1700 04/07/17 11/15/17 Insulin NPH Human [NovoLIN N] 40 unit SUBQ BID 04/07/17 11/15/17 Isosorbide Mononitrate ER [Imdur] 30 mg PO DAILY 04/07/17 11/15/17 ALPRAZolam [Alprazolam] 0.25 mg PO DAILY PRN MDD 1 TABLET 11/15/17 11/15/17 Baclofen 10 mg PO BID 11/15/17 11/15/17 Ibuprofen 800 mg PO QPM 11/15/17 11/15/17 Prasugrel HCl [Effient] 10 mg PO DAILY #30 tablet 11/15/17 Benzonatate [Tessalon Perle] 100 mg PO Q4H #30 capsule 11/17/17 Benzonatate [Tessalon Perle] 100 mg PO Q4H PRN #30 capsule 11/17/17 HYDROcod/ACETAM 5/325 [[place] 5/325] 1 tab PO Q4HR PRN #20 tablet 11/17/17 Furosemide 20 mg PO 01/10/18 Omeprazole [PriLOSEC] 20 mg PO DAILY 01/10/18 01/10/18 Senna [Senokot] 01/10/18 predniSONE [Prednisone] 40 mg PO DAILY #10 tablet 01/10/18 - Allergies Allergies/Adverse Reactions: Allergies Allergy/AdvReac Type Severity Reaction Status Date / Time clopidogrel bisulfate * Allergy Severe Hives Verified 01/10/18 15:49 [From Plavix] Penicillins Allergy Intermediate Hives Verified 01/10/18 15:49 sertraline HCl * Allergy Intermediate throat Verified 01/10/18 15:49 [From Zoloft] swelling Heparin Analogues AdvReac Intermediate platelets Verified 01/10/18 15:49 metformin AdvReac Intermediate diarrhea Verified 01/10/18 15:49 gabapentin AdvReac explosive Verified 01/10/18 15:49 diarrhea tapes Allergy Intermediate blisters Uncoded 11/15/17 05:38 - Social History Does the pt smoke?: No Smoking Status: Never smoker Does the pt drink ETOH?: No Does the pt have substance abuse?: No - Immunizations Immunizations are current?: Yes Immunizations: TDAP >10years/unknown - POLST Patient has POLST: No POLST Status: Full Code PD ED PE NORMAL - Vitals Vital signs reviewed: Yes - General General: Alert and oriented X 3, No acute distress, Well developed/nourished - HEENT HEENT: PERRL, Moist mucous membranes - Neck Neck: Supple, no meningeal sign - Cardiac Cardiac: RRR - Respiratory Respiratory: No respiratory distress, Other (diminished B, rhonchi) - Abdomen Abdomen: Soft, Non tender, Non distended - Back Back: No CVA TTP, No spinal TTP - Derm Derm: Warm and dry, No rash - Extremities Extremities: Other (2+ B LE edema) - Neuro Neuro: Alert and oriented X 3 - Psych Psych: Normal mood, Normal affect Results - Vitals Vitals: Vital Signs - 24 hr 01/10/18 01/10/18 01/10/18 15:34 16:33 17:27 Temperature 36.8 C 36.5 C Heart Rate 65 63 67 Respiratory 19 14 15 Rate Blood Pressure 164/92 H 166/70 H O2 Saturation 98 98 Oxygen O2 Source Room air - EKG (time done) 1535 Rate: Rate (enter#) (65) Rhythm: NSR Sims: Normal Intervals: Normal OK QRS: Normal Ischemia: Non specific changes - Labs Labs: Laboratory Tests 01/10/18 01/10/18 01/10/18 15:45 15:45 15:45 WBC 7.9 RBC 4.23 Hgb 12.6 Hct 36.5 L MCV 86.3 MCH 29.7 MCHC 34.4 RDW 16.5 H Plt Count 173 MPV 6.8 L Neut # 5.8 Lymph # 1.2 L [place] # 0.5 Eos # 0.2 Baso # 0.1 Absolute Nucleated RBC 0.00 Nucleated RBC % 0.0 Sodium 138 Potassium 3.4 L Chloride 101 Carbon Dioxide 28 Anion Gap 9.0 BUN 16 Creatinine 1.0 Estimated GFR (MDRD) 56 L Glucose 96 Calcium 9.0 Total Bilirubin 0.4 AST 21 ALT 19 Alkaline Phosphatase 68 Troponin I < 0.04 B-Natriuretic Peptide Total Protein 7.4 Albumin 3.6 Globulin 3.8 Albumin/Globulin Ratio 0.9 L Lipase 21 L 01/10/18 15:45 WBC RBC Hgb Hct MCV MCH MCHC RDW Plt Count MPV Neut # Lymph # [place] # Eos # Baso # Absolute Nucleated RBC Nucleated RBC % Sodium Potassium Chloride Carbon Dioxide Anion Gap BUN Creatinine Estimated GFR (MDRD) Glucose Calcium Total Bilirubin AST ALT Alkaline Phosphatase Troponin I B-Natriuretic Peptide 248 H Total Protein Albumin Globulin Albumin/Globulin Ratio Lipase - Rads (name of study) cxr Radiology: Prelim report reviewed, EMP read contemporaneously, See rad report ( Lungs are clear. Mild cardiomegaly) PD MEDICAL DECISION MAKING - ED course Complexity details: reviewed results, re-evaluated patient, considered differential, d/w patient ED course: Patient is a 62-year-old female presents to the emergency department with increasing dyspnea on exertion over the past few days. Appears to have a COPD flare. No evidence of CHF. Had a recent stent placement, but troponin is negative. No evidence of clotted stent. Feels better after nebulizer treatment and steroids. Not requiring supplemental O2. Ambulating without difficulty in the emergency department with her cane. Up and down the hallway without any respiratory distress. Will have her follow-up with her doctor for further care. Patient counseled regarding signs and symptoms for which I believe and urgent re-evaluation would be necessary. Patient with good understanding of and agreement to plan and is comfortable going home at this time This document was made in part using voice recognition software. While efforts are made to proofread this document, sound alike and grammatical errors may occur. Departure - Departure Disposition: 01 Home, Self Care Clinical Impression: COPD (chronic obstructive pulmonary disease) Qualifiers: COPD type: COPD with acute exacerbation Qualified Code(s): J44.1 - Chronic obstructive pulmonary disease with (acute) exacerbation Condition: Good Instructions: ED COPD Flare Follow-Up: Cheyenne Guan MD [Primary Care Provider] - Within 1 week Prescriptions: predniSONE [Prednisone] 40 mg PO DAILY #10 tablet Comments: Use your inhaler every 3-4 hours at home. This should improve over the next few days. Return if you worsen. Discharge Date/Time: 01/10/18 17:43
[2018-01-10 15:49] LABS: BASOPHILS # (AUTO) 0.1 10^3/uL (0.0-0.1); BASOPHILS % (AUTO) 0.9 %; EOSINOPHILS # (AUTO) 0.2 10^3/uL (0.0-0.7); HGB - HEMOGLOBIN 12.6 g/dL (12.0-16.0); LYMPHOCYTES # (AUTO) 1.2 10^3/uL (1.5-3.5); LYMPHOCYTES % (AUTO) 15.6 %; MEAN CORPUSCULAR HEMOGLOBIN 29.7 pg (27.0-31.0); MEAN CORPUSCULAR HGB CONC 34.4 g/dL (32.0-36.0); MEAN CORPUSCULAR VOLUME 86.3 fL (81.0-99.0); MEAN PLATELET VOLUME 6.8 fL (7.9-10.8); MONOCYTES # (AUTO) 0.5 10^3/uL (0.0-1.0); MONOCYTES % (AUTO) 6.7 %; NEUTROPHILS # (AUTO) 5.8 10^3/uL (1.5-6.6); NEUTROPHILS % (AUTO) 73.8 %; PLT - PLATELET COUNT 173 10^3/uL (130-450); RED BLOOD COUNT 4.23 10^6/uL (4.20-5.40); RED CELL DISTRIBUTION WIDTH 16.5 % (12.0-15.0); WHITE BLOOD COUNT 7.9 x10^3/uL (4.8-10.8)
[2018-01-10 16:03] LABS: ALBUMIN 3.6 g/dL (3.2-5.5); ALBUMIN/GLOBULIN RATIO 0.9 (1.0-2.2); BILIRUBIN,TOTAL 0.4 mg/dL (0.2-1.0); TOTAL PROTEIN 7.4 g/dL (6.7-8.2)
[2018-01-10] MEDS ORDERED: IPRATROPIUM/ALBUTEROL 3 ML NEB INH STA (16:13)
[2018-01-10] MEDS ORDERED: DEXAMETHASONE 10 MG/ML VIAL PO STA (16:30)
--- NOTE | 2018-01-10 16:36 | XRAY Report ---
EXAM: CHEST RADIOGRAPHY EXAM DATE: 01/10/2018 04:17 PM. CLINICAL HISTORY: Chest pain. Shortness of breath. Cough. COMPARISON: 11/15/2017. TECHNIQUE: Upright AP view. FINDINGS: Lungs/Pleura: No focal opacities evident. No pleural effusion. No pneumothorax. Mediastinum: Mild cardiomegaly, as before. Sternotomy wires, as before. Mild aortic arch calcificatio n. Other: None. IMPRESSION: 1. Lungs are clear. 2. Mild cardiomegaly, as before. [facility] Referring Provider Line: [phone] SITE ID: [id number]
--- NOTE | 2018-01-10 16:36 | XRAY Preliminary Report ---
Exam: XR CHEST 1 VIEW X-RAY IMPRESSION: 1. Lungs are clear. 2. Mild cardiomegaly, as before. [facility] SITE ID: [id number]
[2018-01-10 17:28] VITALS: BP 166/70
== END 2018-01-10 17:43 | disposition home or self-care (01) ==
LOC: ED 15:27
DX: J44.1 Chronic obstructive pulmonary disease with (acute) exacerbation (principal); I25.10 Atherosclerotic heart disease of native coronary artery without angina pectoris; Z95.1 Presence of aortocoronary bypass graft; I10 Essential (primary) hypertension; E11.42 Type 2 diabetes mellitus with diabetic polyneuropathy; Z79.4 Long term (current) use of insulin; K21.9 Gastro-esophageal reflux disease without esophagitis; Z79.82 Long term (current) use of aspirin
CPT/HCPCS: 36415; 71045; 80053; 83690; 83880; 84484; 85025; 93005; 94640; 99283; 99284

== ENCOUNTER 2018-01-13 08:00 | Outpatient (CLI) | payer MEDICARE ==
[2018-01-13 19:18] LABS: ALBUMIN 3.3 g/dL (3.2-5.5); ALBUMIN/GLOBULIN RATIO 1.1 (1.0-2.2); ALKALINE PHOSPHATASE 57 IU/L (42-121); ALT ALANINE AMINOTRANSFERASE 19 IU/L (10-60); AST ASPARTATE AMINOTRANSFERASE 18 IU/L (10-42); BASOPHILS # (AUTO) 0.1 10^3/uL (0.0-0.1); BASOPHILS % (AUTO) 0.9 %; BILIRUBIN,TOTAL 0.3 mg/dL (0.2-1.0); BUN - BLOOD UREA NITROGEN 25 mg/dL (6-20); CALCIUM 8.8 mg/dL (8.5-10.3); CARBON DIOXIDE - CO2 32 mmol/L (21-32); CHLORIDE 102 mmol/L (101-111); CHOL/HDL RATIO 3.3 (<4.4); CHOLESTEROL 193 mg/dL; EOSINOPHILS # (AUTO) 0.1 10^3/uL (0.0-0.7); EOSINOPHILS % (AUTO) 1.1 %; GFR - MDRD 56 (>89); GLUCOSE 94 mg/dL (70-100); HDL CHOLESTEROL 58 mg/dL; HGB - HEMOGLOBIN 12.3 g/dL (12.0-16.0); LDL CHOLESTEROL,CALCULATED 98 mg/dL; LDL/HDL RATIO 1.7 (<4.4); LYMPHOCYTES % (AUTO) 24.6 %; MEAN CORPUSCULAR HEMOGLOBIN 29.4 pg (27.0-31.0); MEAN CORPUSCULAR HGB CONC 33.5 g/dL (32.0-36.0); MEAN CORPUSCULAR VOLUME 87.8 fL (81.0-99.0); MEAN PLATELET VOLUME 6.9 fL (7.9-10.8); MONOCYTES # (AUTO) 0.8 10^3/uL (0.0-1.0); MONOCYTES % (AUTO) 10.4 %; PLT - PLATELET COUNT 199 10^3/uL (130-450); RED BLOOD COUNT 4.19 10^6/uL (4.20-5.40); RED CELL DISTRIBUTION WIDTH 17.1 % (12.0-15.0); SODIUM 139 mmol/L (135-145); TOTAL PROTEIN 6.4 g/dL (6.7-8.2); VLDL CHOLESTEROL 37 mg/dL
[2018-01-13 20:16] LABS: HB2 TOTAL 13.3 g/dL; HEMOGLOBIN A1C 0.6 g/dL; HEMOGLOBIN A1C % 6.3 % (4.6-6.2)
== END 2018-01-13 23:59 ==
LOC: LAB.WCP 08:00
PROVIDERS: ATTEND Family Medicine
DX: I10 Essential (primary) hypertension (principal); E78.5 Hyperlipidemia, unspecified; E11.9 Type 2 diabetes mellitus without complications
CPT/HCPCS: 36415; 80053; 80061; 83036; 83721; 85025

== ENCOUNTER 2018-03-17 09:05 | Outpatient (CLI) | END 2018-03-17 09:06 | disposition home or self-care (01) ==

== ENCOUNTER 2018-03-29 10:37 | Outpatient (CLI) | payer MEDICARE | END 2018-03-29 10:38 | disposition EMS.NT | LOC: EMS 10:37 | PROVIDERS: ATTEND Surgery | DX: Z03.89 Encounter for observation for other suspected diseases and conditions ruled out (principal) ==

== ENCOUNTER 2018-05-09 14:15 | Emergency (ER) | payer MEDICARE ==
[2018-05-09 14:22] VITALS: BP 151/77
--- NOTE | 2018-05-09 14:41 | ED Physician Documentation ---
PD HPI OPHTHO - Stated complaint Stated Complaint: VISION IMPAIRED IN RT EYE - Chief complaint Chief Complaint: Heent - History obtained from History obtained from: Patient - History of Present Illness Timing - onset: Today (cloudy, hazy vision noted when awoke this morning. Has persisted. Denies eye pain nor other deficits.) Timing - duration: Hours (8 hours or so) Timing - details: Abrupt onset (unknown exact onset as symptoms present when she awoke this morning.), Constant Location: Right Quality / character: No: Itching, Burning Associated symptoms: Decreased vision. No: Redness, Discharge, FB sensation, Photophobia, Loss of vision, Headache Contributing factors: Wears glasses, Other (diabetic and history of vascular disease, on antiplatelet agent.). No: FB, Blunt trauma, Wears contacts Similar symptoms before: Has not had sx before Review of Systems Constitutional: denies: Fever, Chills, Myalgias Eyes: reports: Decreased vision. denies: Loss of vision, Photophobia, Discharge , Irritation Nose: denies: Rhinorrhea / runny nose, Congestion Throat: denies: Sore throat Cardiac: denies: Chest pain / pressure Respiratory: denies: Dyspnea, Cough GI: denies: Vomiting Neurologic: denies: Focal weakness, Numbness, Difficulty speaking, Altered mental status, Headache, Head injury PD PAST MEDICAL HISTORY - Past Medical History Past Medical History: Yes Cardiovascular: Hypertension, High cholesterol, Coronary artery disease, Peripheral Vascular Disease, [place], Other Respiratory: COPD, Pneumonia, Shortness of breath, Sleep apnea Endocrine/Autoimmune: Type 2 diabetes GI: GERD : Incontinence HEENT: None Psych: Depression, Anxiety Musculoskeletal: Osteopenia Derm: None - Past Surgical History Past Surgical History: Yes Cardiovascular: CABG, Coronary stent, Cardiac catheterization, Vascular surgery , Angioplasty - Present Medications Home Medications: Ambulatory Orders Medication Instructions Recorded Confirmed Aspirin [Aspir 81] 81 mg PO DAILY 06/12/14 11/15/17 Carvedilol 25 mg PO BID 06/12/14 11/15/17 Amlodipine Besylate 10 mg PO QPM 11/10/15 11/15/17 Atorvastatin Calcium 40 mg PO QPM 11/10/15 11/15/17 Cilostazol 100 mg PO DAILY 11/10/15 11/15/17 Mirtazapine 15 mg PO QPM 11/10/15 11/15/17 Insulin Lispro [Humalog] 15 - 20 units SQ 0800,1200 04/07/17 11/15/17 Insulin Lispro [Humalog] 20 - 30 unit SQ 1700 04/07/17 11/15/17 Insulin NPH Human [NovoLIN N] 40 unit SUBQ BID 04/07/17 11/15/17 Isosorbide Mononitrate ER [Imdur] 30 mg PO DAILY 04/07/17 11/15/17 ALPRAZolam [Alprazolam] 0.25 mg PO DAILY PRN MDD 1 TABLET 11/15/17 11/15/17 Baclofen 10 mg PO BID 11/15/17 11/15/17 Ibuprofen 800 mg PO QPM 11/15/17 11/15/17 Prasugrel HCl [Effient] 10 mg PO DAILY #30 tablet 11/15/17 Benzonatate [Tessalon Perle] 100 mg PO Q4H #30 capsule 11/17/17 Benzonatate [Tessalon Perle] 100 mg PO Q4H PRN #30 capsule 11/17/17 HYDROcod/ACETAM 5/325 [[place] 5/325] 1 tab PO Q4HR PRN #20 tablet 11/17/17 Furosemide 20 mg PO 01/10/18 Omeprazole [PriLOSEC] 20 mg PO DAILY 01/10/18 01/10/18 Senna [Senokot] 01/10/18 predniSONE [Prednisone] 40 mg PO DAILY #10 tablet 01/10/18 - Allergies Allergies/Adverse Reactions: Allergies Allergy/AdvReac Type Severity Reaction Status Date / Time clopidogrel bisulfate * Allergy Severe Hives Verified 01/10/18 15:49 [From Plavix] Penicillins Allergy Intermediate Hives Verified 01/10/18 15:49 sertraline HCl * Allergy Intermediate throat Verified 01/10/18 15:49 [From Zoloft] swelling Heparin Analogues AdvReac Intermediate platelets Verified 01/10/18 15:49 metformin AdvReac Intermediate diarrhea Verified 01/10/18 15:49 gabapentin AdvReac explosive Verified 01/10/18 15:49 diarrhea tapes Allergy Intermediate blisters Uncoded 11/15/17 05:38 - Social History Does the pt smoke?: No Smoking Status: Never smoker Does the pt drink ETOH?: No Does the pt have substance abuse?: No - Immunizations Immunizations are current?: Yes Immunizations: TDAP >10years/unknown - POLST Patient has POLST: No POLST Status: Full Code PD ED PE NORMAL - Vitals Vital signs reviewed: Yes - General General: Alert and oriented X 3, No acute distress, Well developed/nourished - HEENT HEENT: PERRL, EOMI, Other (she can distinguish finger movement in 4 quadrants on right eye. However acuity is impaired and cannot distinguish letters on eye chart.) - Neck Neck: Supple, no meningeal sign, No adenopathy - Derm Derm: Normal color, Warm and dry, No rash - Neuro Neuro: Alert and oriented X 3, environmental lawyer 2-12 intact, No motor deficit, No sensory deficit, Normal speech Eye Opening: Spontaneous Motor: Obeys Commands Verbal: Oriented GCS Score: 15 PD ED PE EXPANDED - Eyes Eyes: Anterior chambers clear, Retinal hemorrhage (posterior chamber cloudy on right, so I could not see retina clearly. Left eye had normal retinal view. ), Unable to visualize fundi (on just the right), Other (IOP 16). No: Hyphema Results - Vitals Vitals: Vital Signs - 24 hr 05/09/18 14:19 Temperature 36.2 C L Heart Rate 56 L Respiratory 18 Rate Blood Pressure 151/77 H O2 Saturation 99 Oxygen O2 Source Room air PD MEDICAL DECISION MAKING - ED course Complexity details: considered differential (I measured the intraocular pressure which was normal at 16 by ER measurement. Add difficulty seeing the fundus as it appeared cloudy and my most likely consideration is retinal hemorrhage. I talked with ophthalmology at the eye clinic right next door to the hospital and Dr. Greenfield said to send the patient directly over there from here. The patient was willing and was guided there by ER staff.), d/w patient, d/w product safety consultant (Dr. Greenfield, Ophthalmology at [facility] next to the hospital here. ) - Sepsis Event Vital Signs: Vital Signs - 24 hr 05/09/18 14:19 Temperature 36.2 C L Heart Rate 56 L Respiratory 18 Rate Blood Pressure 151/77 H O2 Saturation 99 Oxygen O2 Source Room air Departure - Departure Disposition: 01 Home, Self Care Clinical Impression: Visual impairment of right eye Retinal hemorrhage Qualifiers: Laterality: right Qualified Code(s): H35.61 - Retinal hemorrhage, right eye Condition: Stable Record reviewed to determine appropriate education?: Yes Follow-Up: MCKINLEY GREENFIELD MD [Physician No Access] - Comments: Go to the ophthalmology office across the parking lot to see Dr. Greenfield directly from here. I talked with him on the phone and they will see you this afternoon to evaluate your eye better. The concern is for a broken blood vessel in the retina and this needs better evaluation by a specialist. Discharge Date/Time: 05/09/18 15:26
[2018-05-09] MEDS ORDERED: PROPARACAINE 0.5% OPHTH DROPS 15 ML EACHEYE STA (15:00)
== END 2018-05-09 15:26 | disposition home or self-care (01) ==
LOC: ED 14:15
DX: H35.61 Retinal hemorrhage, right eye (principal); I10 Essential (primary) hypertension; E11.9 Type 2 diabetes mellitus without complications; Z79.82 Long term (current) use of aspirin; Z79.4 Long term (current) use of insulin
CPT/HCPCS: 99283; J3490

== ENCOUNTER 2018-05-13 09:54 | Outpatient (CLI) | payer MEDICARE ==
[2018-05-13 12:09] LABS: BASOPHILS # (AUTO) 0.1 10^3/uL (0.0-0.1); EOSINOPHILS # (AUTO) 0.3 10^3/uL (0.0-0.7); EOSINOPHILS % (AUTO) 5.7 %; HGB - HEMOGLOBIN 13.1 g/dL (12.0-16.0); LYMPHOCYTES # (AUTO) 1.4 10^3/uL (1.5-3.5); LYMPHOCYTES % (AUTO) 26.8 %; MEAN CORPUSCULAR HGB CONC 34.4 g/dL (32.0-36.0); MEAN CORPUSCULAR VOLUME 84.3 fL (81.0-99.0); MEAN PLATELET VOLUME 7.4 fL (7.9-10.8); MONOCYTES # (AUTO) 0.5 10^3/uL (0.0-1.0); MONOCYTES % (AUTO) 10.2 %; NEUTROPHILS # (AUTO) 2.9 10^3/uL (1.5-6.6); NEUTROPHILS % (AUTO) 56.3 %; PLT - PLATELET COUNT 164 10^3/uL (130-450); RED BLOOD COUNT 4.53 10^6/uL (4.20-5.40); RED CELL DISTRIBUTION WIDTH 16.3 % (12.0-15.0); WHITE BLOOD COUNT 5.2 x10^3/uL (4.8-10.8)
[2018-05-13 12:33] LABS: ALBUMIN 3.7 g/dL (3.2-5.5); ALBUMIN/GLOBULIN RATIO 1.1 (1.0-2.2); ALKALINE PHOSPHATASE 63 IU/L (42-121); ALT ALANINE AMINOTRANSFERASE 14 IU/L (10-60); AST ASPARTATE AMINOTRANSFERASE 20 IU/L (10-42); BILIRUBIN,TOTAL 0.6 mg/dL (0.2-1.0); BUN - BLOOD UREA NITROGEN 15 mg/dL (6-20); CALCIUM 9.2 mg/dL (8.5-10.3); CARBON DIOXIDE - CO2 25 mmol/L (21-32); CHLORIDE 106 mmol/L (101-111); CHOL/HDL RATIO 3.4 (<4.4); CHOLESTEROL 136 mg/dL; CREATININE 1.3 mg/dL (0.4-1.0); GFR - MDRD 41 (>89); GLUCOSE 149 mg/dL (70-100); HDL CHOLESTEROL 40 mg/dL; LDL CHOLESTEROL,CALCULATED 63 mg/dL; LDL/HDL RATIO 1.6 (<4.4); SODIUM 139 mmol/L (135-145); TOTAL PROTEIN 7.1 g/dL (6.7-8.2); VLDL CHOLESTEROL 33 mg/dL
[2018-05-13 13:18] LABS: HB2 TOTAL 13.7 g/dL; HEMOGLOBIN A1C 0.58 g/dL
== END 2018-05-13 09:55 ==
LOC: LAB.WCP 09:54
PROVIDERS: ATTEND Family Medicine
DX: I50.9 Heart failure, unspecified (principal); I10 Essential (primary) hypertension; E78.5 Hyperlipidemia, unspecified; E11.9 Type 2 diabetes mellitus without complications
CPT/HCPCS: 36415; 80053; 80061; 82043; 83036; 83721; 83880; 85025

== ENCOUNTER 2018-06-17 09:50 | Outpatient (CLI) | payer MEDICARE ==
[2018-06-17 14:55] LABS: CALCIUM 9.3 mg/dL (8.5-10.3); CREATININE 1.1 mg/dL (0.4-1.0)
== END 2018-06-17 09:51 | disposition home or self-care (01) ==
LOC: LAB.WCP 09:50
PROVIDERS: ATTEND Family Medicine
DX: N28.9 Disorder of kidney and ureter, unspecified (principal)
CPT/HCPCS: 36415; 80048

== ENCOUNTER 2018-09-22 08:00 | Outpatient (CLI) | payer MEDICARE ==
[2018-09-22 19:09] LABS: BILIRUBIN,URINE NEGATIVE (NEGATIVE); GLUCOSE, URINE (UA) 100 mg/dL (NEGATIVE); KETONES,URINE (UA) NEGATIVE (NEGATIVE); LEUKOCYTE ESTERASE, URINE NEGATIVE (NEGATIVE); NITRITE,URINE NEGATIVE (NEGATIVE); OCCULT BLOOD,URINE SMALL (NEGATIVE); PROTEIN,URINE >=300 mg/dL (NEGATIVE); UROBILINOGEN,URINE 0.2 (NORMAL) E.U./dL (NORMAL)
[2018-09-22 19:18] LABS: BACTERIA,URINE Many /HPF (None Seen); CLARITY,URINE HAZY (CLEAR); RBC,URINE TNTC /HPF (0-5); SQUAMOUS EPITHELIAL CELL,UR FEW Squamous (<= Few)
== END 2018-09-22 23:59 | disposition home or self-care (01) ==
LOC: LAB.R 08:00
PROVIDERS: ATTEND Family Medicine
DX: R30.0 Dysuria (principal); E11.9 Type 2 diabetes mellitus without complications
CPT/HCPCS: 81001; 82043; 87086

== ENCOUNTER 2018-09-24 08:00 | Outpatient (CLI) | payer MEDICARE ==
[2018-09-24 18:59] LABS: BASOPHILS # (AUTO) 0.1 10^3/uL (0.0-0.1); EOSINOPHILS # (AUTO) 0.3 10^3/uL (0.0-0.7); EOSINOPHILS % (AUTO) 4.4 %; HGB - HEMOGLOBIN 13.9 g/dL (12.0-16.0); LYMPHOCYTES # (AUTO) 1.7 10^3/uL (1.5-3.5); LYMPHOCYTES % (AUTO) 22.8 %; MEAN CORPUSCULAR HEMOGLOBIN 29.5 pg (27.0-31.0); MEAN CORPUSCULAR HGB CONC 33.3 g/dL (32.0-36.0); MEAN CORPUSCULAR VOLUME 88.6 fL (81.0-99.0); MEAN PLATELET VOLUME 7.2 fL (7.9-10.8); MONOCYTES # (AUTO) 0.6 10^3/uL (0.0-1.0); MONOCYTES % (AUTO) 8.2 %; NEUTROPHILS # (AUTO) 4.7 10^3/uL (1.5-6.6); NEUTROPHILS % (AUTO) 63.6 %; PLT - PLATELET COUNT 181 10^3/uL (130-450); RED CELL DISTRIBUTION WIDTH 14.9 % (12.0-15.0); WHITE BLOOD COUNT 7.4 x10^3/uL (4.8-10.8)
[2018-09-24 19:30] LABS: HB2 TOTAL 14.7 g/dL; HEMOGLOBIN A1C 0.59 g/dL; HEMOGLOBIN A1C % 5.8 % (4.6-6.2)
[2018-09-24 19:34] LABS: ALBUMIN 3.6 g/dL (3.2-5.5); ALKALINE PHOSPHATASE 73 IU/L (42-121); ALT ALANINE AMINOTRANSFERASE 16 IU/L (10-60); AST ASPARTATE AMINOTRANSFERASE 19 IU/L (10-42); BILIRUBIN,TOTAL 0.6 mg/dL (0.2-1.0); BUN - BLOOD UREA NITROGEN 14 mg/dL (6-20); CALCIUM 9.2 mg/dL (8.5-10.3); CARBON DIOXIDE - CO2 27 mmol/L (21-32); CHLORIDE 103 mmol/L (101-111); CHOL/HDL RATIO 3.6 (<4.4); CHOLESTEROL 154 mg/dL; CREATININE 1.1 mg/dL (0.4-1.0); GFR - MDRD 50 (>89); GLUCOSE 134 mg/dL (70-100); HDL CHOLESTEROL 43 mg/dL; LDL CHOLESTEROL,CALCULATED 75 mg/dL; LDL/HDL RATIO 1.7 (<4.4); SODIUM 138 mmol/L (135-145); TOTAL PROTEIN 7.2 g/dL (6.7-8.2); VLDL CHOLESTEROL 36 mg/dL
== END 2018-09-24 23:59 | disposition home or self-care (01) ==
LOC: LAB.WCP 08:00
PROVIDERS: ATTEND Family Medicine
DX: E11.9 Type 2 diabetes mellitus without complications (principal); E78.5 Hyperlipidemia, unspecified; R30.0 Dysuria; F41.9 Anxiety disorder, unspecified; I10 Essential (primary) hypertension
CPT/HCPCS: 36415; 80053; 80061; 83036; 83721; 84443; 85025

== ENCOUNTER 2019-03-11 15:21 | Outpatient (CLI) | payer MEDICARE ==
--- NOTE | 2019-03-12 10:29 | XRAY Report ---
Reason: RIB PAIN, RIGHT SIDE Procedure Date: 03/11/2019 Accession Number: [id number] / [id number] Procedure: XR - Ribs w/PA Chest RT CPT Code: FULL RESULT: EXAM: RIGHT RIB RADIOGRAPHY EXAM DATE: 03/11/2019 04:21 PM. CLINICAL HISTORY: Rib pain, right side. COMPARISON: CHEST 2 VIEW PA/LAT 03/14/2018 11:45 AM. TECHNIQUE: 1 view of the chest and 2 views of the ribs. FINDINGS: Bones: Normal. No fracture or bone lesion. Lungs: No focal opacities. No pneumothorax. No pleural effusions. Mediastinum: Stable mild cardiomegaly with calcified aortic arch and CABG changes. Other: No abnormalities identified in the region of the BB. IMPRESSION: No fracture is detected. RADIA
== END 2019-03-11 15:22 | disposition home or self-care (01) ==
LOC: DI 15:21
PROVIDERS: ATTEND Family Medicine
DX: R07.81 Pleurodynia (principal)

== ENCOUNTER 2019-03-11 15:23 | Outpatient (CLI) | payer MEDICARE | END 2019-03-11 15:24 | disposition home or self-care (01) | LOC: DI 15:23 | PROVIDERS: ATTEND Family Medicine | DX: R07.81 Pleurodynia (principal); Z53.9 Procedure and treatment not carried out, unspecified reason ==

== ENCOUNTER 2019-03-30 14:00 | Outpatient (CLI) | payer MEDICARE | END 2019-03-30 23:59 | disposition home or self-care (01) | LOC: LAB.R 14:00 | PROVIDERS: ATTEND Family Medicine | DX: R31.9 Hematuria, unspecified (principal) | CPT/HCPCS: 87086 ==

== ENCOUNTER 2019-06-02 11:05 | Outpatient (CLI) | payer MEDICARE ==
[2019-06-02 18:58] LABS: CALCIUM 9.1 mg/dL (8.5-10.3); CREATININE 1.2 mg/dL (0.4-1.0)
== END 2019-06-02 23:59 | disposition home or self-care (01) ==
LOC: LAB.WCP 11:05
PROVIDERS: ATTEND Internal Medicine Cardiovascular Disease
DX: I25.10 Atherosclerotic heart disease of native coronary artery without angina pectoris (principal); I25.118 Atherosclerotic heart disease of native coronary artery with other forms of angina pectoris; I65.23 Occlusion and stenosis of bilateral carotid arteries
CPT/HCPCS: 36415; 80048

== ENCOUNTER 2019-06-27 13:46 | Emergency (ER) | payer MEDICARE ==
--- NOTE | 2019-06-27 14:29 | ED Physician Documentation ---
History of Present Illness - Stated complaint Stated Complaint: RT ARM LAC - Chief complaint Chief Complaint: Wound - Additonal information Additional information: This is a 64-year-old female with a history of coronary artery disease, perip heral vascular disease who presents with oozing from a lesion on her right upper arm. She states she had a wart/mole on her upper arm and she picked that it, and is been using for around 1 day. This is persisted throughout the night. She tried putting on some new skin and this did not help. She is on aspirin and cilostazol. No bleeding elsewhere. Review of Systems Cardiac: denies: Chest pain / pressure GI: reports: Abdominal Pain Skin: reports: Lesions Neurologic: denies: Generalized weakness PD PAST MEDICAL HISTORY - Past Medical History Cardiovascular: Hypertension, High cholesterol, Coronary artery disease, Peripheral Vascular Disease, [place], Other Respiratory: COPD, Pneumonia, Shortness of breath, Sleep apnea Endocrine/Autoimmune: Type 2 diabetes GI: GERD : Incontinence HEENT: None Psych: Depression, Anxiety Musculoskeletal: Osteopenia Derm: None - Past Surgical History Past Surgical History: Yes Cardiovascular: CABG, Coronary stent, Cardiac catheterization, Vascular surgery, Angioplasty - Present Medications Home Medications: Ambulatory Orders Medication Instructions Recorded Confirmed Aspirin [Aspir 81] 81 mg PO DAILY 06/12/14 11/15/17 Carvedilol 25 mg PO BID 06/12/14 11/15/17 Amlodipine Besylate 10 mg PO QPM 11/10/15 11/15/17 Atorvastatin Calcium 40 mg PO QPM 11/10/15 11/15/17 Cilostazol 100 mg PO DAILY 11/10/15 11/15/17 Mirtazapine 15 mg PO QPM 11/10/15 11/15/17 Insulin Lispro [Humalog] 15 - 20 units SQ 0800,1200 04/07/17 11/15/17 Insulin Lispro [Humalog] 20 - 30 unit SQ 1700 04/07/17 11/15/17 Insulin NPH Human [NovoLIN N] 40 unit SUBQ BID 04/07/17 11/15/17 Isosorbide Mononitrate ER [Imdur] 30 mg PO DAILY 04/07/17 11/15/17 ALPRAZolam [Alprazolam] 0.25 mg PO DAILY PRN MDD 1 TABLET 11/15/17 11/15/17 Baclofen 10 mg PO BID 11/15/17 11/15/17 Ibuprofen 800 mg PO QPM 11/15/17 11/15/17 Prasugrel HCl [Effient] 10 mg PO DAILY #30 tablet 11/15/17 Benzonatate [Tessalon Perle] 100 mg PO Q4H #30 capsule 11/17/17 Benzonatate [Tessalon Perle] 100 mg PO Q4H PRN #30 capsule 11/17/17 HYDROcod/ACETAM 5/325 [[place] 5/325] 1 tab PO Q4HR PRN #20 tablet 11/17/17 Furosemide 20 mg PO 01/10/18 Omeprazole [PriLOSEC] 20 mg PO DAILY 01/10/18 01/10/18 Senna [Senokot] 01/10/18 predniSONE [Prednisone] 40 mg PO DAILY #10 tablet 01/10/18 - Allergies Allergies/Adverse Reactions: Allergies Allergy/AdvReac Type Severity Reaction Status Date / Time clopidogrel bisulfate * Allergy Severe Hives Verified 01/10/18 15:49 [From Plavix] Penicillins Allergy Intermediate Hives Verified 01/10/18 15:49 sertraline HCl * Allergy Intermediate throat Verified 01/10/18 15:49 [From Zoloft] swelling Heparin Analogues AdvReac Intermediate platelets Verified 01/10/18 15:49 metformin AdvReac Intermediate diarrhea Verified 01/10/18 15:49 gabapentin AdvReac explosive Verified 01/10/18 15:49 diarrhea hydromorphone [From Dilaudid] AdvReac Unknown Verified 06/27/19 14:34 tapes Allergy Intermediate blisters Uncoded 11/15/17 05:38 - Social History Does the pt smoke?: No Smoking Status: Never smoker Does the pt drink ETOH?: No Does the pt have substance abuse?: No - Immunizations Immunizations are current?: Yes Immunizations: TDAP >10years/unknown - POLST Patient has POLST: No POLST Status: Full Code PD ED PE NORMAL - Vitals Vital signs reviewed: Yes - General General: Alert and oriented X 3, No acute distress - HEENT HEENT: Atraumatic - Cardiac Cardiac: RRR - Respiratory Respiratory: No respiratory distress - Derm Derm: Warm and dry, Other (Over right upper arm there is a mole with a central 0.5cm circular superficial excoriation that is actively oozing blood. ) - Extremities Extremities: No deformity - Neuro Neuro: Alert and oriented X 3 - Psych Psych: Normal mood, Normal affect Results - Vitals Vitals: Vital Signs - 24 hr 06/27/19 06/27/19 13:53 15:36 Temperature 36.7 C 36.6 C Heart Rate 86 90 Respiratory 18 18 Rate Blood Pressure 184/76 H 176/76 H O2 Saturation 99 99 Oxygen O2 Source Room air Procedures - Laceration (location) Upper extremity Length in cm: 0.5 Wound type: Other (Circular, superficial picked out ulceration) Neurovascular status: Sensory intact Skin layer closure: Dermabond Other: Patient tolerated well, No complications, Dressing applied Complexity: Simple PD MEDICAL DECISION MAKING - ED course Complexity details: considered differential (Laceration, ulceration, oozing, coagulopathy) ED course: Pt presents with bleeding from a mole that she scratched at. This was not controlled with direct pressure. The wound was closed using a layer of skin glue and hemostasis was achieved. She had no recurrence of the bleeding after 20 mins of observation. I discussed wound care, return precuations such as recurrence bleeding not controlled by direct pressure, and follow up with her PCP on this lesion. Patient was discharged home. Departure - Departure Disposition: 01 Home, Self Care Clinical Impression: Laceration Condition: Good Instructions: ED Laceration All Follow-Up: Jose Alford DO [Primary Care Provider] - As Needed Comments: You were seen today for a bleeding spot on your right arm, this has stopped with skin glue. If the bleeding recurs, hold direct pressure over the area for 15 minutes, if it continues after that See care with your regular doctor or in the emergency department. The skin glue will flake off on its own Over the next week, to not scrub by the area or pick at the area to allow it to heal. Discharge Date/Time: 06/27/19 15:36
[2019-06-27] MEDS ORDERED: LIDOCAINE 1%-EPI 1:100000 20 ML MDV SUBQ STA (15:03)
[2019-06-27 15:37] VITALS: BP 176/76
== END 2019-06-27 15:36 | disposition home or self-care (01) ==
LOC: ED 13:46
DX: S41.111A Laceration without foreign body of right upper arm, initial encounter (principal); X58.XXXA Exposure to other specified factors, initial encounter; D22.61 Melanocytic nevi of right upper limb, including shoulder; I10 Essential (primary) hypertension; E11.51 Type 2 diabetes mellitus with diabetic peripheral angiopathy without gangrene; Z79.4 Long term (current) use of insulin; I25.10 Atherosclerotic heart disease of native coronary artery without angina pectoris; Z95.1 Presence of aortocoronary bypass graft; Z79.82 Long term (current) use of aspirin
CPT/HCPCS: 12001; 99282

== ENCOUNTER 2020-10-03 11:25 | Outpatient (CLI) | payer MEDICARE ==
[2020-10-03 18:32] LABS: BASOPHILS # (AUTO) 0.1 10^3/uL (0.0-0.1); EOSINOPHILS # (AUTO) 0.3 10^3/uL (0.0-0.7); EOSINOPHILS % (AUTO) 4.6 %; HGB - HEMOGLOBIN 13.6 g/dL (12.0-16.0); LYMPHOCYTES # (AUTO) 1.3 10^3/uL (1.5-3.5); LYMPHOCYTES % (AUTO) 17.9 %; MEAN CORPUSCULAR HEMOGLOBIN 29.3 pg (27.0-31.0); MEAN CORPUSCULAR HGB CONC 31.3 g/dL (32.0-36.0); MEAN CORPUSCULAR VOLUME 93.8 fL (81.0-99.0); MEAN PLATELET VOLUME 9.2 fL (7.9-10.8); MONOCYTES # (AUTO) 0.8 10^3/uL (0.0-1.0); MONOCYTES % (AUTO) 10.7 %; NEUTROPHILS # (AUTO) 4.8 10^3/uL (1.5-6.6); NEUTROPHILS % (AUTO) 65.7 %; PLT - PLATELET COUNT 172 10^3/uL (130-450); RED BLOOD COUNT 4.64 10^6/uL (4.20-5.40); RED CELL DISTRIBUTION WIDTH 14.2 % (12.0-15.0); WHITE BLOOD COUNT 7.2 x10^3/uL (4.8-10.8)
[2020-10-03 19:21] LABS: ALBUMIN 3.8 g/dL (3.2-5.5); ALKALINE PHOSPHATASE 69 IU/L (42-121); ALT ALANINE AMINOTRANSFERASE 18 IU/L (10-60); AST ASPARTATE AMINOTRANSFERASE 16 IU/L (10-42); BILIRUBIN,TOTAL 0.5 mg/dL (0.2-1.0); BUN - BLOOD UREA NITROGEN 15 mg/dL (6-20); CALCIUM 9.2 mg/dL (8.5-10.3); CARBON DIOXIDE - CO2 26 mmol/L (21-32); CHLORIDE 108 mmol/L (101-111); CHOLESTEROL 169 mg/dL; CREATININE 1.2 mg/dL (0.4-1.0); GLUCOSE 100 mg/dL (70-100); HDL CHOLESTEROL 57 mg/dL; LDL CHOLESTEROL,CALCULATED 85 mg/dL; LDL/HDL RATIO 1.5 (<4.4); SODIUM 141 mmol/L (135-145); TOTAL PROTEIN 7.7 g/dL (6.7-8.2); VLDL CHOLESTEROL 27 mg/dL
[2020-10-03 20:06] LABS: HEMOGLOBIN A1c% 5.7 % (4.27-6.07)
[2020-10-03 20:47] LABS: MICROALBUM/CREATININE RATIO,UR 3125.3 ug/mg (<30.0); MICROALBUMIN,URINE 234.4 mg/dL (0-300.0)
== END 2020-10-03 23:59 | disposition home or self-care (01) ==
LOC: LAB.WCP 11:25
PROVIDERS: ATTEND Family Medicine
DX: I10 Essential (primary) hypertension (principal); E78.5 Hyperlipidemia, unspecified; E11.9 Type 2 diabetes mellitus without complications; R63.5 Abnormal weight gain
CPT/HCPCS: 36415; 80053; 80061; 82043; 82570; 83036; 83721; 84443; 85025

== ENCOUNTER 2020-10-14 13:26 | Outpatient (CLI) | payer MEDICARE ==
--- NOTE | 2020-10-14 14:20 | CT Report ---
PROCEDURE: Low Dose Lung Cancer Screen INDICATIONS: CURRENT SMOKER TECHNIQUE: Noncontrast low-dose 5 mm thick sections acquired from the pulmonary apices to the posterior costophr enic angles. 7 mm thick coronal and sagittal MIP reformats were then acquired. For radiation dose r eduction, the following was used: automated exposure control, adjustment of mA and/or kV according t o patient size. COMPARISON: None FINDINGS: Image quality: Excellent. Lungs and pleura: No pulmonary nodules. No focal infiltrates. No pleural fluid. Mediastinum: Heart size is normal. No pericardial effusion. Remote CABG. Advanced diffuse coronary artery calcifications. Advanced great vessel calcifications. No mediastinal adenopathy by size criter ia. Thoracic aorta and central pulmonary arteries are normal in size. Esophagus is normal in calibe r. No hiatal hernia. Bones and chest wall: No suspicious bony lesions. No vertebral body compression fractures. No axil tariq or supraclavicular adenopathy by size criteria. The thyroid is normal in size. Abdomen: Right kidney appears somewhat shrunken. IMPRESSION: 1. LungRads category 1: Negative. No nodules and/or definitely benign nodules. 2. Annual low-dose noncontrast CT of the chest is recommended for lung cancer screening. 3. Clinically significant or potentially clinically significant findings (nonlung cancer): Remote CAB G, advanced coronary artery disease, ASCVD, right renal atrophy Reviewed by: Carlos Summers MD on 10/14/2020 2:19 PM PST Approved by: Carlos Summers MD on 10/14/2020 2:19 PM PST Station ID: [id number]
== END 2020-10-14 13:27 | disposition home or self-care (01) ==
LOC: DI 13:26
PROVIDERS: ATTEND Family Medicine
DX: Z12.2 Encounter for screening for malignant neoplasm of respiratory organs (principal); I25.810 Atherosclerosis of coronary artery bypass graft(s) without angina pectoris; I25.10 Atherosclerotic heart disease of native coronary artery without angina pectoris; N26.1 Atrophy of kidney (terminal); F17.200 Nicotine dependence, unspecified, uncomplicated

== ENCOUNTER 2021-03-01 08:00 | Outpatient (CLI) | payer MEDICARE ==
[2021-03-01 18:09] LABS: BASOPHILS # (AUTO) 0.1 10^3/uL (0.0-0.1); BASOPHILS % (AUTO) 0.8 %; EOSINOPHILS # (AUTO) 0.3 10^3/uL (0.0-0.7); EOSINOPHILS % (AUTO) 5.1 %; HCT - HEMATOCRIT 39.9 % (37.0-47.0); HGB - HEMOGLOBIN 12.7 g/dL (12.0-16.0); LYMPHOCYTES # (AUTO) 1.6 10^3/uL (1.5-3.5); LYMPHOCYTES % (AUTO) 24.8 %; MEAN CORPUSCULAR HEMOGLOBIN 29.9 pg (27.0-31.0); MEAN CORPUSCULAR HGB CONC 31.8 g/dL (32.0-36.0); MEAN CORPUSCULAR VOLUME 93.9 fL (81.0-99.0); MEAN PLATELET VOLUME 9.5 fL (7.9-10.8); MONOCYTES # (AUTO) 0.6 10^3/uL (0.0-1.0); MONOCYTES % (AUTO) 9.6 %; NEUTROPHILS # (AUTO) 3.7 10^3/uL (1.5-6.6); NEUTROPHILS % (AUTO) 59.5 %; PLT - PLATELET COUNT 174 10^3/uL (130-450); RED BLOOD COUNT 4.25 10^6/uL (4.20-5.40); RED CELL DISTRIBUTION WIDTH 13.8 % (12.0-15.0); WHITE BLOOD COUNT 6.2 x10^3/uL (4.8-10.8)
[2021-03-01 18:26] LABS: ALBUMIN 3.7 g/dL (3.2-5.5); ALKALINE PHOSPHATASE 58 IU/L (42-121); ALT ALANINE AMINOTRANSFERASE 14 IU/L (10-60); AST ASPARTATE AMINOTRANSFERASE 14 IU/L (10-42); BILIRUBIN,TOTAL 0.5 mg/dL (0.2-1.0); BUN - BLOOD UREA NITROGEN 19 mg/dL (6-20); CALCIUM 9.1 mg/dL (8.5-10.3); CARBON DIOXIDE - CO2 24 mmol/L (21-32); CHLORIDE 110 mmol/L (101-111); CHOL/HDL RATIO 3.4 (<4.4); CHOLESTEROL 151 mg/dL; CREATININE 1.3 mg/dL (0.4-1.0); GFR - MDRD 41 (>89); GLUCOSE 164 mg/dL (70-100); HDL CHOLESTEROL 44 mg/dL; LDL CHOLESTEROL,CALCULATED 81 mg/dL; LDL/HDL RATIO 1.8 (<4.4); POTASSIUM 4.2 mmol/L (3.5-5.0); SODIUM 142 mmol/L (135-145); TOTAL PROTEIN 7.3 g/dL (6.7-8.2); TRIGLYCERIDES 130 mg/dL; VLDL CHOLESTEROL 26 mg/dL
[2021-03-01 20:00] LABS: ESTIMATED AVERAGE GLUCOSE 120 mg/dL (70-100); HEMOGLOBIN A1c% 5.8 % (4.27-6.07)
== END 2021-03-01 23:59 | disposition home or self-care (01) ==
LOC: LAB.WCP 08:00
PROVIDERS: ATTEND Family Medicine
DX: E11.9 Type 2 diabetes mellitus without complications (principal)
CPT/HCPCS: 36415; 80053; 80061; 83036; 83721; 85025

== ENCOUNTER 2021-08-29 08:00 | Outpatient (CLI) | payer MEDICARE ==
[2021-08-30 09:24] LABS: BASOPHILS # (AUTO) 0.1 10^3/uL (0.0-0.1); BASOPHILS % (AUTO) 1.1 %; EOSINOPHILS # (AUTO) 0.3 10^3/uL (0.0-0.7); EOSINOPHILS % (AUTO) 3.8 %; HCT - HEMATOCRIT 44.9 % (37.0-47.0); LYMPHOCYTES # (AUTO) 1.6 10^3/uL (1.5-3.5); LYMPHOCYTES % (AUTO) 22.5 %; MEAN CORPUSCULAR HEMOGLOBIN 30.5 pg (27.0-31.0); MEAN CORPUSCULAR HGB CONC 31.2 g/dL (32.0-36.0); MEAN CORPUSCULAR VOLUME 97.8 fL (81.0-99.0); MEAN PLATELET VOLUME 9.3 fL (7.9-10.8); MONOCYTES # (AUTO) 0.7 10^3/uL (0.0-1.0); MONOCYTES % (AUTO) 9.7 %; NEUTROPHILS # (AUTO) 4.4 10^3/uL (1.5-6.6); NEUTROPHILS % (AUTO) 62.8 %; PLT - PLATELET COUNT 196 10^3/uL (130-450); RED BLOOD COUNT 4.59 10^6/uL (4.20-5.40)
[2021-08-30 10:55] LABS: ALBUMIN/GLOBULIN RATIO 1.1 (1.0-2.2); ALKALINE PHOSPHATASE 67 IU/L (42-121); ALT ALANINE AMINOTRANSFERASE 13 IU/L (10-60); AST ASPARTATE AMINOTRANSFERASE 14 IU/L (10-42); BILIRUBIN,TOTAL 0.6 mg/dL (0.2-1.0); BUN - BLOOD UREA NITROGEN 12 mg/dL (6-20); CALCIUM 9.2 mg/dL (8.5-10.3); CARBON DIOXIDE - CO2 26 mmol/L (21-32); CHLORIDE 104 mmol/L (101-111); CHOL/HDL RATIO 3.2 (<4.4); CHOLESTEROL 167 mg/dL; CREATININE 1.2 mg/dL (0.4-1.0); GFR - MDRD 45 (>89); GLUCOSE 114 mg/dL (70-100); HDL CHOLESTEROL 53 mg/dL; LDL CHOLESTEROL,CALCULATED 92 mg/dL; LDL/HDL RATIO 1.7 (<4.4); POTASSIUM 4.4 mmol/L (3.5-5.0); SODIUM 138 mmol/L (135-145); TOTAL PROTEIN 7.6 g/dL (6.7-8.2); TRIGLYCERIDES 109 mg/dL; VLDL CHOLESTEROL 22 mg/dL
[2021-08-30 11:03] LABS: MICROALBUM/CREATININE RATIO,UR 1142.9 ug/mg (<30.0)
[2021-08-30 12:46] LABS: ESTIMATED AVERAGE GLUCOSE 120 mg/dL (70-100); HEMOGLOBIN A1c% 5.8 % (4.27-6.07)
== END 2021-08-29 23:59 | disposition home or self-care (01) ==
LOC: LAB.WCP 08:00
PROVIDERS: ATTEND Family Medicine
DX: E11.9 Type 2 diabetes mellitus without complications (principal)
CPT/HCPCS: 36415; 80053; 80061; 82043; 82570; 83036; 83721; 85025

== ENCOUNTER 2022-01-08 14:46 | Outpatient (CLI) | payer MEDICARE ==
[2022-01-08 18:22] LABS: BASOPHILS # (AUTO) 0.1 10^3/uL (0.0-0.1); BASOPHILS % (AUTO) 0.8 %; EOSINOPHILS # (AUTO) 0.3 10^3/uL (0.0-0.7); EOSINOPHILS % (AUTO) 3.7 %; HCT - HEMATOCRIT 39.8 % (37.0-47.0); HGB - HEMOGLOBIN 13.1 g/dL (12.0-16.0); LYMPHOCYTES # (AUTO) 2.1 10^3/uL (1.5-3.5); LYMPHOCYTES % (AUTO) 24.8 %; MEAN CORPUSCULAR HEMOGLOBIN 30.5 pg (27.0-31.0); MEAN CORPUSCULAR HGB CONC 32.9 g/dL (32.0-36.0); MEAN CORPUSCULAR VOLUME 92.8 fL (81.0-99.0); MEAN PLATELET VOLUME 9.7 fL (7.9-10.8); MONOCYTES % (AUTO) 12.1 %; NEUTROPHILS # (AUTO) 4.8 10^3/uL (1.5-6.6); NEUTROPHILS % (AUTO) 58.4 %; PLT - PLATELET COUNT 199 10^3/uL (130-450); RED BLOOD COUNT 4.29 10^6/uL (4.20-5.40); WHITE BLOOD COUNT 8.3 x10^3/uL (4.8-10.8)
[2022-01-08 18:32] LABS: ALBUMIN 3.7 g/dL (3.2-5.5); ALKALINE PHOSPHATASE 64 IU/L (42-121); ALT ALANINE AMINOTRANSFERASE 13 IU/L (10-60); AST ASPARTATE AMINOTRANSFERASE 16 IU/L (10-42); BILIRUBIN,TOTAL 0.3 mg/dL (0.2-1.0); BUN - BLOOD UREA NITROGEN 16 mg/dL (6-20); CARBON DIOXIDE - CO2 23 mmol/L (21-32); CHLORIDE 111 mmol/L (101-111); CHOLESTEROL 160 mg/dL; CREATININE 1.1 mg/dL (0.4-1.0); GFR - MDRD 49 (>89); HDL CHOLESTEROL 54 mg/dL; LDL CHOLESTEROL,CALCULATED 87 mg/dL; LDL/HDL RATIO 1.6 (<4.4); POTASSIUM 3.9 mmol/L (3.5-5.0); SODIUM 142 mmol/L (135-145); TOTAL PROTEIN 7.4 g/dL (6.7-8.2); TRIGLYCERIDES 97 mg/dL; VLDL CHOLESTEROL 19 mg/dL
[2022-01-08 18:35] LABS: THYROID STIMULATING HORMONE 3.3 uIU/mL (0.34-5.60)
[2022-01-08 18:37] LABS: GLUCOSE 36 mg/dL (70-100)
[2022-01-08 19:37] LABS: CREATININE,URINE 232.4 mg/dL; MICROALBUM/CREATININE RATIO,UR 816.7 ug/mg (<30.0); MICROALBUMIN,URINE 189.8 mg/dL (0-300.0)
== END 2022-01-08 14:47 | disposition home or self-care (01) ==
LOC: LAB.N 14:46
PROVIDERS: ATTEND Family Medicine
DX: E11.9 Type 2 diabetes mellitus without complications (principal)
CPT/HCPCS: 36415; 80053; 80061; 81599; 82043; 82570; 83036; 83721; 84443; 85025

== ENCOUNTER 2022-01-08 18:00 | Outpatient (CLI) | payer MEDICARE | END 2022-01-08 18:01 | disposition critical access hospital (66) | LOC: EMS 18:00 | DX: E11.649 Type 2 diabetes mellitus with hypoglycemia without coma (principal); R41.0 Disorientation, unspecified | CPT/HCPCS: A0425; A0427 ==

== ENCOUNTER 2022-01-08 18:19 | Emergency (ER) | payer MEDICARE ==
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
[2022-01-08 20:02] VITALS: BP 141/62
== END 2022-01-08 20:10 | disposition home or self-care (01) ==
LOC: EDUNIT# → ED 18:19
DX: Z04.1 Encounter for examination and observation following transport accident (principal); E11.649 Type 2 diabetes mellitus with hypoglycemia without coma; F17.200 Nicotine dependence, unspecified, uncomplicated; Z79.4 Long term (current) use of insulin
CPT/HCPCS: 99283

== ENCOUNTER 2022-06-21 16:15 | Outpatient (CLI) | payer MEDICARE ==
[2022-06-21 17:46] LABS: BASOPHILS # (AUTO) 0.1 10^3/uL (0.0-0.1); EOSINOPHILS # (AUTO) 0.3 10^3/uL (0.0-0.7); EOSINOPHILS % (AUTO) 5.4 %; HCT - HEMATOCRIT 38.2 % (37.0-47.0); HGB - HEMOGLOBIN 12.6 g/dL (12.0-16.0); LYMPHOCYTES # (AUTO) 1.6 10^3/uL (1.5-3.5); LYMPHOCYTES % (AUTO) 25.9 %; MEAN CORPUSCULAR HEMOGLOBIN 30.4 pg (27.0-31.0); MEAN CORPUSCULAR VOLUME 92.3 fL (81.0-99.0); MEAN PLATELET VOLUME 9.8 fL (7.9-10.8); MONOCYTES # (AUTO) 0.7 10^3/uL (0.0-1.0); MONOCYTES % (AUTO) 10.3 %; NEUTROPHILS # (AUTO) 3.6 10^3/uL (1.5-6.6); NEUTROPHILS % (AUTO) 57.1 %; PLT - PLATELET COUNT 173 10^3/uL (130-450); RED BLOOD COUNT 4.14 10^6/uL (4.20-5.40); WHITE BLOOD COUNT 6.3 x10^3/uL (4.8-10.8)
[2022-06-21 17:59] LABS: INR 1.1 (0.8-1.2); PT - PROTHROMBIN TIME 12.2 secs (9.9-12.6)
[2022-06-21 18:06] LABS: PARTIAL THROMBOPLASTIN TIME 30.2 secs (24.9-33.3)
[2022-06-21 18:08] LABS: ALBUMIN 3.9 g/dL (3.2-5.5); ALBUMIN/GLOBULIN RATIO 1.1 (1.0-2.2); BILIRUBIN,TOTAL 0.3 mg/dL (0.2-1.0); CALCIUM 9.4 mg/dL (8.5-10.3); CREATININE 1.3 mg/dL (0.4-1.0); POTASSIUM 4.2 mmol/L (3.5-5.0); TOTAL PROTEIN 7.4 g/dL (6.7-8.2)
== END 2022-06-21 16:16 | disposition home or self-care (01) ==
LOC: LAB.N 16:15
PROVIDERS: ATTEND Physician Assistant
DX: R04.2 Hemoptysis (principal)
CPT/HCPCS: 36415; 80053; 85025; 85610; 85730

== ENCOUNTER 2022-06-21 16:20 | Outpatient (CLI) | payer MEDICARE ==
--- NOTE | 2022-06-21 17:05 | XRAY Report ---
PROCEDURE: Chest 2 View X-Ray INDICATIONS: HEMOPTYSIS TECHNIQUE: 2 view(s) of the chest. COMPARISON: 03/14/[address] chest dated 10/14/2020 FINDINGS: Surgical changes and devices: Multiple median sternotomy wires are present. Lungs and pleura: No pleural effusions or pneumothorax. Lungs are clear. Mediastinum: Mediastinal contours are normal. Calcified right perihilar lymph nodes. Heart size is normal. Bones and chest wall: No suspicious bony abnormalities. Soft tissues appear unremarkable. IMPRESSION: Chest without acute cardiopulmonary abnormalities. No focal airspace disease. Reviewed by: Chad Larsen MD on 06/21/2022 5:03 PM PDT Approved by: Chad Larsen MD on 06/21/2022 5:03 PM PDT Station ID: [id number]
== END 2022-06-21 16:21 | disposition home or self-care (01) ==
LOC: DI.N 16:20
PROVIDERS: ATTEND Physician Assistant
DX: R04.2 Hemoptysis (principal)
CPT/HCPCS: 36415; 80053; 85025; 85610; 85730

== ENCOUNTER 2022-06-26 12:58 | Outpatient (CLI) | payer MEDICARE ==
--- NOTE | 2022-06-27 09:55 | CT Report ---
PROCEDURE: Low Dose Lung Cancer Screen INDICATIONS: NICOTINE ABUSE TECHNIQUE: Noncontrast low-dose axial images were acquired from the pulmonary apices to the posterior costophren ic angles. Multiplanar MIP reformats were then reconstructed. For radiation dose reduction, the follo wing was used: automated exposure control, adjustment of mA and/or kV according to patient size. COMPARISON: 10/14/2021 FINDINGS: Image quality: Excellent. Lungs and pleura: No suspicious pulmonary nodule or mass. Mild bibasilar atelectasis. No acute airsp lashawn opacity. No significant pleural findings. Mediastinum: Heart size is normal. No pericardial effusion. No mediastinal adenopathy by size crit eria. Thoracic aorta and central pulmonary arteries are normal in size. Esophagus is normal in niru elmer. No hiatal hernia. Bones and chest wall: No suspicious bony lesions. No vertebral body compression fractures. No axil tariq or supraclavicular adenopathy by size criteria. The thyroid is normal in size and there are no incidental findings. Abdomen: Visualized upper abdomen solid organs and bowel loops appear normal in the absence of contr ast. IMPRESSION: 1. Lung-RADS category 1: Negative. No suspicious pulmonary nodule or mass. 2. Continued annual low-dose noncontrast CT of the chest is recommended for lung cancer screening. Reviewed by: Julius Jones MD on 06/27/2022 9:54 AM PDT Approved by: Julius Jones MD on 06/27/2022 9:54 AM PDT Station ID: [id number]
== END 2022-06-26 12:59 | disposition home or self-care (01) ==
LOC: DI 12:58
PROVIDERS: ATTEND Physician Assistant
DX: Z12.2 Encounter for screening for malignant neoplasm of respiratory organs (principal); F17.200 Nicotine dependence, unspecified, uncomplicated

== ENCOUNTER 2022-11-13 11:11 | Outpatient (CLI) | payer MEDICARE ==
[2022-11-13 18:04] LABS: BASOPHILS # (AUTO) 0.1 10^3/uL (0.0-0.1); BASOPHILS % (AUTO) 1.1 %; EOSINOPHILS # (AUTO) 0.3 10^3/uL (0.0-0.7); HCT - HEMATOCRIT 42.7 % (37.0-47.0); HGB - HEMOGLOBIN 13.5 g/dL (12.0-16.0); LYMPHOCYTES # (AUTO) 1.4 10^3/uL (1.5-3.5); LYMPHOCYTES % (AUTO) 22.4 %; MEAN CORPUSCULAR HEMOGLOBIN 30.3 pg (27.0-31.0); MEAN CORPUSCULAR HGB CONC 31.6 g/dL (32.0-36.0); MEAN PLATELET VOLUME 9.6 fL (7.9-10.8); MONOCYTES # (AUTO) 0.6 10^3/uL (0.0-1.0); NEUTROPHILS % (AUTO) 62.3 %; PLT - PLATELET COUNT 177 10^3/uL (130-450); RED BLOOD COUNT 4.45 10^6/uL (4.20-5.40); RED CELL DISTRIBUTION WIDTH 13.8 % (12.0-15.0); WHITE BLOOD COUNT 6.4 x10^3/uL (4.8-10.8)
[2022-11-13 18:30] LABS: ALBUMIN 3.6 g/dL (3.2-5.5); ALBUMIN/GLOBULIN RATIO 0.9 (1.0-2.2); ALKALINE PHOSPHATASE 60 IU/L (42-121); ALT ALANINE AMINOTRANSFERASE 17 IU/L (10-60); AST ASPARTATE AMINOTRANSFERASE 18 IU/L (10-42); BILIRUBIN,TOTAL 0.3 mg/dL (0.2-1.0); BUN - BLOOD UREA NITROGEN 14 mg/dL (6-20); CARBON DIOXIDE - CO2 28 mmol/L (21-32); CHLORIDE 107 mmol/L (101-111); CHOL/HDL RATIO 2.9 (<4.4); CHOLESTEROL 161 mg/dL; CREATININE 1.2 mg/dL (0.4-1.0); GFR - MDRD 45 (>89); GLUCOSE 100 mg/dL (70-100); HDL CHOLESTEROL 56 mg/dL; LDL CHOLESTEROL,CALCULATED 84 mg/dL; LDL/HDL RATIO 1.5 (<4.4); POTASSIUM 4.5 mmol/L (3.5-5.0); SODIUM 142 mmol/L (135-145); TOTAL PROTEIN 7.5 g/dL (6.7-8.2); TRIGLYCERIDES 106 mg/dL; VLDL CHOLESTEROL 21 mg/dL
[2022-11-13 18:36] LABS: THYROID STIMULATING HORMONE 3.56 uIU/mL (0.34-5.60)
[2022-11-13 21:23] LABS: ESTIMATED AVERAGE GLUCOSE 134 mg/dL (70-100); HEMOGLOBIN A1c% 6.3 % (4.27-6.07)
== END 2022-11-13 11:12 | disposition home or self-care (01) ==
LOC: LAB.N 11:11
PROVIDERS: ATTEND Family Medicine
DX: I12.9 Hypertensive chronic kidney disease with stage 1 through stage 4 chronic kidney disease, or unspecified chronic kidney disease (principal); E11.22 Type 2 diabetes mellitus with diabetic chronic kidney disease; N18.31 Chronic kidney disease, stage 3a; I25.10 Atherosclerotic heart disease of native coronary artery without angina pectoris; R60.0 Localized edema; J44.9 Chronic obstructive pulmonary disease, unspecified; I73.9 Peripheral vascular disease, unspecified; F17.200 Nicotine dependence, unspecified, uncomplicated; Z95.1 Presence of aortocoronary bypass graft
CPT/HCPCS: 36415; 80053; 80061; 82043; 82570; 83036; 83721; 84443; 85025

== ENCOUNTER 2022-12-13 13:46 | Outpatient (CLI) | payer MEDICARE ==
--- NOTE | 2022-12-14 09:55 | Mammography Report ---
BILATERAL DIGITAL SCREENING MAMMOGRAM 3D/2D: 12/13/2022 CLINICAL: Routine screening. Comparison was made to images from 10/16/2017. Both breasts are extremely dense, which lowers the sensitivity of mammography (category d />75% gland ular tissue). No significant masses, calcifications, or other findings are seen in either breast. IMPRESSION: NEGATIVE There is no mammographic evidence of malignancy. A 1 year screening mammogram is recommended. Based on the Tyrer Cuzick model (a risk assessment model) the patients lifetime risk is 6.5% and her 10 year risk is 3.8%. According to the ACR, ACS, and NCCN guidelines, an annual breast MRI exam james g with mammogram is recommended if the patients lifetime risk is 20% or greater. This exam was interpreted at Station ID: [id number]. NOTE: For mammograms, a report in lay terms will be sent to the patient. Approximately 15% of breast malignancies will not be visualized mammographically. In the management of a palpable breast mass, a negative mammogram must not discourage biopsy of a clinically suspicious lesion. Electronically Signed By: Yunior Hylton M.D. lc/:12/13/2022 14:45:48 letter sent: No_Letter ACR BI-RADS Category 1: Negative 3341F PARENCHYMAL PATTERN: (VD) - The breast(s) demonstrate(s) extremely dense parenchyma, limiting the sen sitivity of mammography. BI-RADS CATEGORY: (1) - 1 Mammogram [id number] 1 year screening LATERALITY: (B)
== END 2022-12-13 13:47 | disposition home or self-care (01) ==
LOC: DI.N 13:46
DX: Z12.31 Encounter for screening mammogram for malignant neoplasm of breast (principal)

== ENCOUNTER 2023-06-11 13:46 | Outpatient (CLI) | payer MEDICARE ==
[2023-06-11 18:23] LABS: CALCIUM 9.3 mg/dL (8.5-10.3); CREATININE 1.3 mg/dL (0.6-1.3); POTASSIUM 4.1 mmol/L (3.5-4.5)
[2023-06-11 21:21] LABS: ESTIMATED AVERAGE GLUCOSE 117 mg/dL (70-100); HEMOGLOBIN A1c% 5.7 % (4.27-6.07)
== END 2023-06-11 13:47 | disposition home or self-care (01) ==
LOC: LAB.N 13:46
PROVIDERS: ATTEND Family Medicine
DX: E11.9 Type 2 diabetes mellitus without complications (principal); Z79.4 Long term (current) use of insulin
CPT/HCPCS: 36415; 80048; 83036

== ENCOUNTER 2023-10-07 13:48 | Outpatient (CLI) | payer MEDICARE ==
[2023-10-07 17:47] LABS: BASOPHILS # (AUTO) 0.1 10^3/uL (0.0-0.1); BASOPHILS % (AUTO) 0.7 %; EOSINOPHILS # (AUTO) 0.3 10^3/uL (0.0-0.7); EOSINOPHILS % (AUTO) 3.4 %; HCT - HEMATOCRIT 44.1 % (37.0-47.0); HGB - HEMOGLOBIN 13.9 g/dL (12.0-16.0); LYMPHOCYTES # (AUTO) 1.9 10^3/uL (1.5-3.5); LYMPHOCYTES % (AUTO) 25.2 %; MEAN CORPUSCULAR HEMOGLOBIN 30.2 pg (27.0-31.0); MEAN CORPUSCULAR HGB CONC 31.5 g/dL (32.0-36.0); MEAN CORPUSCULAR VOLUME 95.9 fL (81.0-99.0); MEAN PLATELET VOLUME 9.6 fL (7.9-10.8); MONOCYTES # (AUTO) 0.7 10^3/uL (0.0-1.0); MONOCYTES % (AUTO) 9.3 %; NEUTROPHILS # (AUTO) 4.5 10^3/uL (1.5-6.6); NEUTROPHILS % (AUTO) 61.3 %; PLT - PLATELET COUNT 201 10^3/uL (130-450); RED CELL DISTRIBUTION WIDTH 14.1 % (12.0-15.0); WHITE BLOOD COUNT 7.3 x10^3/uL (4.8-10.8)
[2023-10-07 18:04] LABS: ALBUMIN/GLOBULIN RATIO 1.2 (1.0-2.2); ALKALINE PHOSPHATASE 65 IU/L (42-121); ALT ALANINE AMINOTRANSFERASE 14 IU/L (10-60); AST ASPARTATE AMINOTRANSFERASE 15 IU/L (10-42); BILIRUBIN,TOTAL 0.5 mg/dL (0.2-1.0); BUN - BLOOD UREA NITROGEN 18 mg/dL (6-20); CALCIUM 9.6 mg/dL (8.5-10.3); CARBON DIOXIDE - CO2 28 mmol/L (21-32); CHLORIDE 107 mmol/L (101-111); CHOL/HDL RATIO 3.1 (<4.4); CHOLESTEROL 169 mg/dL; CREATININE 1.2 mg/dL (0.6-1.3); GFR - MDRD 44 (>89); GLUCOSE 133 mg/dL (74-104); HDL CHOLESTEROL 54 mg/dL; LDL CHOLESTEROL,CALCULATED 92 mg/dL; LDL/HDL RATIO 1.7 (<4.4); POTASSIUM 4.4 mmol/L (3.5-4.5); SODIUM 142 mmol/L (135-145); TOTAL PROTEIN 7.4 g/dL (6.4-8.9); TRIGLYCERIDES 114 mg/dL (48-352); VLDL CHOLESTEROL 23 mg/dL
[2023-10-07 18:17] LABS: THYROID STIMULATING HORMONE 2.41 uIU/mL (0.34-5.60)
[2023-10-07 21:31] LABS: ESTIMATED AVERAGE GLUCOSE 140 mg/dL (70-100); HEMOGLOBIN A1c% 6.5 % (4.27-6.07)
== END 2023-10-07 13:49 | disposition home or self-care (01) ==
LOC: LAB.N 13:48
PROVIDERS: ATTEND Family Medicine
DX: I10 Essential (primary) hypertension (principal); G25.81 Restless legs syndrome; K21.9 Gastro-esophageal reflux disease without esophagitis; E11.9 Type 2 diabetes mellitus without complications; J44.9 Chronic obstructive pulmonary disease, unspecified; Z79.4 Long term (current) use of insulin; F17.200 Nicotine dependence, unspecified, uncomplicated
CPT/HCPCS: 36415; 80053; 80061; 83036; 83721; 84443; 85025

== ENCOUNTER 2023-12-26 18:46 | Outpatient (CLI) | payer MEDICARE | END 2023-12-26 23:59 | disposition EMS.NT | LOC: EMS 18:46 | DX: M25.552 Pain in left hip (principal); W01.0XXA Fall on same level from slipping, tripping and stumbling without subsequent striking against object, initial encounter ==

== ENCOUNTER 2024-03-09 16:26 | Outpatient (CLI) | payer MEDICARE ==
[2024-03-09 21:10] LABS: CALCIUM 9.5 mg/dL (8.5-10.3); CREATININE 1.2 mg/dL (0.6-1.3); POTASSIUM 4.1 mmol/L (3.5-4.5)
[2024-03-09 21:21] LABS: ESTIMATED AVERAGE GLUCOSE 126 mg/dL (70-100)
== END 2024-03-09 16:27 | disposition home or self-care (01) ==
LOC: LAB.N 16:26
PROVIDERS: ATTEND Family Medicine
DX: E11.9 Type 2 diabetes mellitus without complications (principal); G25.81 Restless legs syndrome; K21.9 Gastro-esophageal reflux disease without esophagitis; Z79.4 Long term (current) use of insulin
CPT/HCPCS: 36415; 80048; 82043; 82570; 83036

== ENCOUNTER 2024-03-10 08:00 | Outpatient (CLI) | payer MEDICARE ==
[2024-03-10 18:18] LABS: CREATININE,URINE 129.5 mg/dL
[2024-03-10 18:29] LABS: MICROALBUM/CREATININE RATIO,UR 519.7 ug/mg (<30.0); MICROALBUMIN,URINE 67.3 mg/dL
== END 2024-03-10 23:59 | disposition home or self-care (01) ==
LOC: LAB.N 08:00
PROVIDERS: ATTEND Family Medicine
DX: G25.81 Restless legs syndrome (principal); K21.9 Gastro-esophageal reflux disease without esophagitis; E11.9 Type 2 diabetes mellitus without complications; Z79.4 Long term (current) use of insulin
CPT/HCPCS: 82043; 82570

== ENCOUNTER 2024-06-10 13:47 | Outpatient (CLI) | payer MEDICARE, MEDICAID | END 2024-06-10 23:59 | disposition critical access hospital (66) | LOC: EMS 13:47 | DX: S79.911A Unspecified injury of right hip, initial encounter (principal); W01.0XXA Fall on same level from slipping, tripping and stumbling without subsequent striking against object, initial encounter; Y93.89 Activity, other specified; Y92.480 Sidewalk as the place of occurrence of the external cause | CPT/HCPCS: A0425; A0427 ==

== ENCOUNTER 2024-06-10 14:12 | Emergency (ER) | payer MEDICARE, MEDICAID ==
--- NOTE | 2024-06-10 14:22 | ED Physician Documentation ---
PD HPI Fall - Stated complaint Stated Complaint: GLF/HEAD INJURY - History obtained from History obtained from: Patient, EMS - Additional information Additional information: 69yo F with CAD/CABG, smoking, DMII on insulin. Mech fall, hit back of head, on prasugrel. Mostly hurt R hip though. Pain severe despite 50mcg fentanyl en route. PD PAST MEDICAL HISTORY - Past Medical History Cardiovascular: Hypertension, High cholesterol, Coronary artery disease, Peripheral Vascular Disease, [place], Other Respiratory: COPD, Pneumonia, Shortness of breath, Sleep apnea Endocrine/Autoimmune: Type 2 diabetes GI: GERD : Incontinence HEENT: None Psych: Depression, Anxiety Musculoskeletal: Osteopenia Derm: None - Past Surgical History Past Surgical History: Yes Cardiovascular: CABG, Coronary stent, Cardiac catheterization, Vascular surgery, Angioplasty - Present Medications Home Medications: Ambulatory Orders Medication Instructions Recorded Confirmed Aspirin [Aspir 81] 81 mg PO DAILY 06/12/14 11/15/17 Carvedilol 25 mg PO BID 06/12/14 11/15/17 Amlodipine Besylate 10 mg PO QPM 11/10/15 11/15/17 Atorvastatin Calcium 40 mg PO QPM 11/10/15 11/15/17 Mirtazapine 15 mg PO QPM 11/10/15 11/15/17 cilostazoL [Cilostazol] 100 mg PO DAILY 11/10/15 11/15/17 Insulin Lispro [Humalog] 15 - 20 units SQ 0800,1200 04/07/17 11/15/17 Insulin Lispro [Humalog] 20 - 30 unit SQ 1700 04/07/17 11/15/17 Insulin NPH Human [HumuLIN N] 40 unit SUBQ BID 04/07/17 11/15/17 Isosorbide Mononitrate ER [Imdur] 30 mg PO DAILY 04/07/17 11/15/17 ALPRAZolam [Alprazolam] 0.25 mg PO DAILY PRN MDD 1 TABLET 11/15/17 11/15/17 Baclofen 10 mg PO BID 11/15/17 11/15/17 Ibuprofen 800 mg PO QPM 11/15/17 11/15/17 Prasugrel HCl [Effient] 10 mg PO DAILY #30 tablet 11/15/17 Benzonatate [Tessalon Perle] 100 mg PO Q4H #30 capsule 02/25/18 Benzonatate [Tessalon Perle] 100 mg PO Q4H PRN #30 capsule 11/17/17 HYDROcod/ACETAM 5/325 [[place] 5/325] 1 tab PO Q4HR PRN #20 tablet 11/17/17 Furosemide 20 mg PO 01/10/18 Omeprazole [PriLOSEC] 20 mg PO DAILY 01/10/18 01/10/18 Senna [Senokot] 01/10/18 predniSONE [Prednisone] 40 mg PO DAILY #10 tablet 01/10/18 - Allergies Allergies/Adverse Reactions: Allergies Allergy/AdvReac Type Severity Reaction Status Date / Time clopidogrel bisulfate * Allergy Severe Hives Verified 06/10/24 14:29 [From Plavix] Penicillins Allergy Intermediate Hives Verified 06/10/24 14:29 sertraline HCl * Allergy Intermediate throat Verified 06/10/24 14:29 [From Zoloft] swelling codeine Allergy Unknown Verified 06/10/24 14:29 Heparin Analogues AdvReac Intermediate platelets Verified 06/10/24 14:29 metformin AdvReac Intermediate diarrhea Verified 06/10/24 14:29 gabapentin AdvReac explosive Verified 06/10/24 14:29 diarrhea hydromorphone [From Dilaudid] AdvReac Unknown Verified 06/10/24 14:29 tapes Allergy Intermediate blisters Uncoded 06/10/24 14:29 - Social History Does the pt smoke?: Yes Smoking Status: Current every day smoker Does the pt drink ETOH?: No Does the pt have substance abuse?: No - Immunizations Immunizations are current?: Yes Immunizations: TDAP >10years/unknown - POLST Patient has POLST: No POLST Status: Full Code PD ED PE NORMAL - Vitals Vital signs reviewed: Yes - General General: Alert and oriented X 3 (in pain d/t R hip) - HEENT HEENT: PERRL, EOMI - Neck Neck: No bony TTP (but will image d/t poss distracting inj) - Cardiac Cardiac: RRR, No murmur - Respiratory Respiratory: No respiratory distress, Clear bilaterally - Abdomen Abdomen: Non tender - Back Back: No CVA TTP - Derm Derm: Normal color, Warm and dry - Extremities Extremities: Other (Mild shortening RLE with severe hip pain with any rom) - Neuro Neuro: Alert and oriented X 3 Results - Vitals Vitals: Vital Signs - 24 hr 06/10/24 06/10/24 14:21 16:18 Temperature 36.4 C L Heart Rate 64 65 Respiratory 18 16 Rate Blood Pressure 153/106 H 204/77 H O2 Saturation 95 94 Oxygen O2 Source Room air - EKG (time done) 1435 EKG releavant findings:: EKG personally interpreted by author of this note. Relevant findings are: Rate: Rate (enter#) (53) Rhythm: NSR [place]: RAD Intervals: Normal ID, Prolonged QT QRS: Normal Ischemia: Non specific changes Computer interpretation: Agree with computer - Labs Labs: Laboratory Tests 06/10/24 06/10/24 06/10/24 14:26 14:26 14:26 WBC 7.9 RBC 4.17 L Hgb 12.5 Hct 39.1 MCV 93.8 MCH 30.0 MCHC 32.0 RDW 13.7 Plt Count 171 MPV 9.3 Neut # (Auto) 5.2 Lymph # (Auto) 1.5 [place] # (Auto) 0.8 Eos # (Auto) 0.3 Baso # (Auto) 0.1 Absolute Nucleated RBC 0.00 Nucleated RBC % 0.0 PT 12.9 H INR 1.2 Sodium 138 Potassium 4.1 Chloride 106 Carbon Dioxide 26 Anion Gap 6.0 BUN 20 Creatinine 1.2 Estimated GFR (MDRD) 44 L Glucose 93 Calcium 9.2 Total Bilirubin 0.5 AST 15 ALT 13 Alkaline Phosphatase 62 Total Protein 6.5 Albumin 3.5 Globulin 3.0 Albumin/Globulin Ratio 1.2 - Rads (name of study) Right hip x-ray demonstrates a oblique displaced angulated subtrochanteric right hip fracture. Relevant Findings:: Final report received, EMP independent interpretation of test Single view chest x-ray demonstrates cardiomegaly and diffuse chronic interstitial changes Relevant Findings:: Final report received, EMP independent interpretation of test CT of the head without contrast was unremarkable Relevant Findings:: Final report received, EMP independent interpretation of test CT of the cervical spine without contrast was showing cervical spondylosis with disc protrusion at C5-C6 contributing to mild canal stenosis. No frac Relevant Findings:: Final report received, EMP independent interpretation of test PD Medical Decision Making - ED course ED course: Call to Dr Fredo Dickey at 2:35pm, he is in the OR, asked OR float to have him come by ED when done. But when I told pt about dx and need for surgery she requests xfer to [facility] which is not unreasonable given lack of cardiology etc here. Told by PRAVEEN no bed available at [facility], so will have Dr yoo see. Dr. Yoo had the ability to come by and we spoke about the case about 4:40 PM. He had already looked at the x-ray and reviewed her chart and discussed with anesthesia was deemed that she was probably too ill at baseline to have anesthesia and a surgery here without cardiology coverage and recommends we call around. That said, if she were to be significantly delayed in boarding he would have to reconsider. She is still in a lot of pain and I have asked the on-call COUNTER CONTROL OPERATOR to come by to do a block. (4:58 PM) She was graciously accepted to [facility] ED by Dr. Don Engle under auto accepted criteria at 5:05 PM. [place] are completed and she is stable for transfer. Departure - Departure Disposition: 02 Transfer Acute Care Hosp Clinical Impression: Head injury COPD (chronic obstructive pulmonary disease) Qualifiers: COPD type: unspecified COPD Qualified Code(s): J44.9 - Chronic obstructive pulmonary disease, unspecified Hyperglycemia due to type 2 diabetes mellitus Qualifiers: Diabetes mellitus fdc insulin use: with fdc use Qualified Code(s): E11.65 - Type 2 diabetes mellitus with hyperglycemia Fracture, subtrochanteric, right femur, closed Qualifiers: Encounter type: initial encounter Fracture alignment: displaced Qualified Code(s): S72.21XA - Displaced subtrochanteric fracture of right femur, initial encounter for closed fracture Fall Qualifiers: Encounter type: initial encounter Qualified Code(s): W19.XXXA - Unspecified fall, initial encounter Condition: Stable
[2024-06-10 14:33] LABS: BASOPHILS # (AUTO) 0.1 10^3/uL (0.0-0.1); BASOPHILS % (AUTO) 0.8 %; EOSINOPHILS # (AUTO) 0.3 10^3/uL (0.0-0.7); EOSINOPHILS % (AUTO) 3.8 %; HCT - HEMATOCRIT 39.1 % (37.0-47.0); HGB - HEMOGLOBIN 12.5 g/dL (12.0-16.0); LYMPHOCYTES # (AUTO) 1.5 10^3/uL (1.5-3.5); LYMPHOCYTES % (AUTO) 19.4 %; MEAN CORPUSCULAR VOLUME 93.8 fL (81.0-99.0); MEAN PLATELET VOLUME 9.3 fL (7.9-10.8); MONOCYTES # (AUTO) 0.8 10^3/uL (0.0-1.0); MONOCYTES % (AUTO) 9.7 %; NEUTROPHILS # (AUTO) 5.2 10^3/uL (1.5-6.6); NEUTROPHILS % (AUTO) 65.9 %; PLT - PLATELET COUNT 171 10^3/uL (130-450); RED BLOOD COUNT 4.17 10^6/uL (4.20-5.40); RED CELL DISTRIBUTION WIDTH 13.7 % (12.0-15.0); WHITE BLOOD COUNT 7.9 x10^3/uL (4.8-10.8)
[2024-06-10] MEDS: fentaNYL 100 MCG/2 ML VIAL IVP STA (14:36)
[2024-06-10] MEDS: KETAMINE 500 MG/10 ML VIAL IVP STA (14:47)
[2024-06-10 14:48] LABS: INR 1.2 (0.8-1.2); PT - PROTHROMBIN TIME 12.9 secs (9.9-12.6)
[2024-06-10 14:49] LABS: ALBUMIN 3.5 g/dL (3.2-5.5); ALBUMIN/GLOBULIN RATIO 1.2 (1.0-2.2); BILIRUBIN,TOTAL 0.5 mg/dL (0.2-1.0); CALCIUM 9.2 mg/dL (8.5-10.3); CREATININE 1.2 mg/dL (0.6-1.3); POTASSIUM 4.1 mmol/L (3.5-4.5); TOTAL PROTEIN 6.5 g/dL (6.4-8.9)
--- NOTE | 2024-06-10 15:00 | XRAY Report ---
PROCEDURE: Hip w/Pelvis 2-3V RT INDICATIONS: hip inj TECHNIQUE: 2 views of the hip were acquired. COMPARISON: None. FINDINGS: Bones: Oblique subtrochanteric fracture of the right hip/proximal femur with displacement, overridin g, and angulation. No dislocation. No suspicious bony lesions. Soft tissues: No suspicious soft tissue calcifications or masses. IMPRESSION: Oblique subtrochanteric fracture of the right hip/proximal femur with displacement, overriding, and a ngulation. Reviewed by: Carlos Summers MD on 06/10/2024 2:59 PM PDT Approved by: Carlos Summers MD on 06/10/2024 2:59 PM PDT Station ID: [id number]
--- NOTE | 2024-06-10 15:01 | XRAY Report ---
PROCEDURE: Chest 1V INDICATIONS: preop TECHNIQUE: One view of the chest was acquired. COMPARISON: 06/21/2022. FINDINGS: Surgical changes and devices: CABG. Lungs and pleura: No pleural effusions or pneumothorax. Diffuse chronic interstitial change. Questio n mild interstitial pulmonary edema. Mediastinum: Mediastinal contours appear normal. Cardiomegaly. Bones and chest wall: No suspicious bony lesions. Overlying soft tissues appear unremarkable. IMPRESSION: Cardiomegaly. Diffuse chronic interstitial change. Question mild interstitial pulmonary edema. Reviewed by: Carlos Summers MD on 06/10/2024 3:00 PM PDT Approved by: Carlos Summers MD on 06/10/2024 3:00 PM PDT Station ID: [id number]
[2024-06-10] MEDS: METOCLOPRAMIDE 10 MG/2 ML VIAL IVP STA (15:09)
[2024-06-10] MEDS ORDERED: fentaNYL 100 MCG/2 ML VIAL IVP PRN (15:23)
--- NOTE | 2024-06-10 15:24 | CT Report ---
PROCEDURE: Head WO INDICATIONS: head inj TECHNIQUE: Noncontrast 4.5 mm thick angled axial sections acquired from the foramen magnum to the vertex. For r adiation dose reduction, the following was used: automated exposure control, adjustment of mA and/or kV according to patient size. COMPARISON: None. FINDINGS: Image quality: Excellent. CSF spaces: Basal cisterns are patent. No extra-axial fluid collections. Ventricles are normal in size and shape. Brain: No midline shift. No intracranial masses or hemorrhage. Nieves-white matter interface is norm al. Intracranial carotid calcifications. Age-related volume loss and small vessel ischemic change. Ol d small lacunar left deep white matter infarct. Skull and face: Calvarium and visualized facial bones are intact, without suspicious lesions. Sinuses: Visualized sinuses and mastoids are clear. IMPRESSION: No acute intracranial pathology. Reviewed by: Carlos Summers MD on 06/10/2024 3:23 PM PDT Approved by: Carlos Summers MD on 06/10/2024 3:23 PM PDT Station ID: [id number]
--- NOTE | 2024-06-10 15:26 | CT Report ---
PROCEDURE: Cervical Spine WO INDICATIONS: head inj TECHNIQUE: Noncontrast 3 mm thick sections acquired from the skull base to the T4 level. Sagittal and coronal r eformats were then constructed. For radiation dose reduction, the following was used: automated exp osure control, adjustment of mA and/or kV according to patient size. COMPARISON: None. FINDINGS: Image quality: Excellent. Bones: No fractures or dislocations. Visualized superior ribs are intact. Cervical spondylosis. A d isc protrusion at C5-C6 contributes to canal stenosis. Soft tissues: Prevertebral soft tissues are normal in thickness. No paravertebral hematomas. No ap ical pneumothoraces. Left neck surgical clips. IMPRESSION: 1. No acute cervical fracture or dislocation. 2. Cervical spondylosis. Findings include a disc protrusion at C5-C6 which contributes to mild canal stenosis. Reviewed by: Carlos Summers MD on 06/10/2024 3:25 PM PDT Approved by: Carlos Summers MD on 06/10/2024 3:25 PM PDT Station ID: [id number]
[2024-06-10 16:23] VITALS: BP 204/77; O2SAT 94
[2024-06-10] MEDS ORDERED: ROPIVACAINE 0.2% PF 10 ML VIAL ONE ×2 (17:16→17:17)
--- NOTE | 2024-06-10 17:59 | CONSULTATION NOTE ---
Consultation Report: Pt was seen after request made for block for right hip fracture; she does not tolerate narcotics well; and is being transferred to [place]. after informed consent was obtained, a right fascia iliaca block was performed in the usual fashion; with sterile prep and technique; ultrasound guidance, and negative aspiration q 5 ml. a total of 20 ml of 0.2% ropivicaine was injected for the block, with good visualization throughout. hopefully this will give her some pain relief for her transport. thank you for this consultaion.
== END 2024-06-10 18:37 | disposition short-term general hospital (02) ==
LOC: EDBD → EDUNIT# → ED 14:12
DX: S72.21XA Displaced subtrochanteric fracture of right femur, initial encounter for closed fracture (principal); S09.90XA Unspecified injury of head, initial encounter; W18.39XA Other fall on same level, initial encounter; J44.9 Chronic obstructive pulmonary disease, unspecified; E11.65 Type 2 diabetes mellitus with hyperglycemia; I25.10 Atherosclerotic heart disease of native coronary artery without angina pectoris; I10 Essential (primary) hypertension; I25.2 Old myocardial infarction; I73.9 Peripheral vascular disease, unspecified; Z79.4 Long term (current) use of insulin; Z95.1 Presence of aortocoronary bypass graft; Z79.82 Long term (current) use of aspirin; Z79.899 Other long term (current) drug therapy; F17.200 Nicotine dependence, unspecified, uncomplicated
CPT/HCPCS: 36415; 70450; 71045; 72125; 73502; 80053; 85025; 85610; 93005; 96374; 96375; 99285; J2765